=== PATIENT | female | born 1935 | race Caucasian/White ===

== ENCOUNTER 2017-05-25 19:47 | Inpatient (IN) | payer MEDICARE, BC ==
[2017-05-25] MEDS ORDERED: LORazepam INJ* 2 MG/ML 1 ML VIAL IV ONE (20:16)
[2017-05-25 20:35] LABS: ABS Basophils 0.1 10^3/ul (0-0.2); ABS Eosinophils 0 10^3/ul (0-0.6); ABS Monocytes 0.6 10^3/ul (0-0.8); ABS Neutrophils 7.7 10^3/ul (1.5-7.7); ABS Nucleated RBC 0 10^3/ul; Eosinophil % 0.2 % (0-6); Hematocrit 39 % (35-47); Hemoglobin 13.4 g/dl (12.0-16.0); Lymphocyte % 10.5 % (25-47); Mean Corpuscular HGB Conc 34 g/dl (31-36); Mean Corpuscular Hemoglobin 32 pg (27-31); Mean Corpuscular Volume 93 fL (80-97); Mean Platelet Volume 7 um3 (7.4-10.4); Nucleated Red Blood Cells % 0; Platelet Count 276 10^3/ul (150-450); Red Cell Distribution Width 13 % (10.5-15); White Blood Count 9.4 10^3/ul (3.5-10.8)
[2017-05-25 20:49] LABS: EGFR Non-African American 106.3 (>60)
[2017-05-25] MEDS: NS 0.9% 1000 ML* 1,000 ML IV SCH (21:10)
--- NOTE | 2017-05-25 21:10 | RAD ---
Indication: Low back and left thigh pain. CT of the abdomen and pelvis was performed without oral or IV contrast administration. Coronal and sagittal reconstructed images were obtained. Lung bases demonstrate no pleural fluid, nodules or masses. Heart is of normal size without evidence of pericardial effusion. Liver is normal in size. No focal lesions or intrahepatic duct dilatation is noted. Patient status post cholecystectomy. Common duct is prominent. Pancreas demonstrates no mass or pancreatic ductal dilatation. Spleen is normal in size. No adrenal lesions are noted. The kidneys demonstrate no hydronephrosis with cortical cyst in the lower pole of the right kidney measuring up to 2.9 cm. No dilated loops of bowel are noted. No hydronephrosis is noted. Atherosclerotic aorta without evidence of aneurysmal dilatation is noted. Common iliac arteries are unremarkable. CT of the pelvis demonstrates uterus and ovaries to be unremarkable. Urinary bladder is unremarkable. No hernias are noted. The visualized bony structures are grossly unremarkable. Degenerative disc disease at multiple levels is noted. There is a small anterior abdominal wall hernia containing omentum. IMPRESSION: No abnormal masses or fluid collections are noted. Patient is status post cholecystectomy. There is a small ventral hernia containing omentum.
--- NOTE | 2017-05-25 21:33 | RAD ---
Indication: Left leg pain. Duplex Doppler sonography of the deep venous system of the left lower extremity deep venous system was performed. Bilaterally the common femoral veins appear patent and compressible. Left proximal greater saphenous vein, proximal deep femoral vein, femoral vein, popliteal vein, posterior tibial veins and peroneal veins appear patent and compressible. IMPRESSION: NO EVIDENCE OF DEEP VENOUS THROMBOSIS IS IDENTIFIED.
--- NOTE | 2017-05-25 21:35 | RAD ---
Indication: Back pain. CT of the lumbar spine was obtained in the axial plane. Sagittal and coronal reconstructed images were obtained. The vertebral bodies appear normal in height. Diffuse osteopenia is noted. At L5-S1 there is degenerative disc disease. Osteopenia is noted. Facet arthropathy is noted. At L4-L5 there is broad-based protrusion. No central foraminal stenosis is identified. Moderate facet hypertrophy is noted. At L3-L4 broad-based protrusion flattens the thecal sac. Mild facet arthropathy is noted. No central or foraminal stenosis is noted. At L2-L3 there is degenerative disc disease with broad-based protrusion. There is left posterior lateral disc protrusion which may narrow the left foramen. At L1-L2 no focal protrusion is identified. IMPRESSION: No evidence of fracture is noted. Degenerative disc disease is present at multiple levels. At L2-L3 broad-based protrusion asymmetric towards the left may narrow the left foramen. Vacuum disc phenomenon is noted. At L4-L5 and L5-S1 degenerative disc disease is noted.
--- NOTE | 2017-05-25 21:37 | RAD ---
Indication: Left thigh pain. CT of the left femur was performed in the axial plane. Sagittal and coronal reconstructed images were obtained. Degenerative changes of the left hip is noted. Osteophyte formation and joint space narrowing is noted. No fracture of the femur is noted. Degenerative changes of the patellofemoral joint is noted. No soft tissue masses are noted. IMPRESSION: Degenerative changes of the left hip without evidence of fracture.
--- NOTE | 2017-05-25 22:30 | ED ---
Judah Meraz Thomas, scribed for Bao Eid MD on 05/25/17 at 2011 . Lower Extremity - HPI Summary HPI Summary: The patient is an 81 year old female presenting to the emergency department complaining of pain in her left thigh. It began about a month ago where it started in her lower back, and it now radiates down her leg. There is some numbness associated with the pain, and it is aggravated by movement. There is no pain in her knee, calf, butt, back, abdomen or chest. She reports incontinence for the past few years. - History of Current Complaint Chief Complaint: EDExtremityLower Stated Complaint: LT THIGH PAIN Time Seen by Provider: 05/25/17 19:53 Hx Obtained From: Patient Onset of Pain: Days - about 30 days ago. Onset/Duration: Still Present Severity Initially: Severe Severity Currently: Severe Pain Intensity: 10 Pain Scale Used: 0-10 Numeric Timing: Constant Location: Radiates To - left leg Associated Signs And Symptoms: Negative: Abdominal Pain, Knee Pain, Other - Chest pain Aggravating Factor(s): Movement Alleviating Factor(s): Nothing - Allergies/Home Medications Allergies/Adverse Reactions: Allergies Allergy/AdvReac Type Severity Reaction Status Date / Time Penicillins Allergy Unknown Verified 05/25/17 19:58 Reaction Details PMH/Surg Hx/FS Hx/Imm Hx Endocrine/Hematology History: Reports: Hx Diabetes Cardiovascular History: Reports: Hx Hypertension Infectious Disease History: No Infectious Disease History: Denies: Traveled Outside the [place] in Last 30 Days - Family History Known Family History: Positive: Diabetes - Social History Alcohol Use: None Substance Use Type: Reports: None Smoking Status (MU): Former Smoker Review of Systems Positive: incontinence Musculoskeletal: Other - Left lower extremity pain, Lower back pain Negative: Other - Knee, calf, butt, back, abdomen, chest pain Positive: Numbness All Other Systems Reviewed And Are Negative: Yes Physical Exam - Summary Physical Exam Summary: General: well-appearing, no pain distress Skin: warm, color reflects adequate perfusion, dry Head: normal Eyes: EOMI, CATY ENT: normal Neck: supple, nontender Respiratory: CTA, breath sounds present Cardiovascular: RRR Abdomen: soft, nontender Bowel: present Musculoskeletal: Her lateral thigh is tender to palpation. There is tenderness through the gluteals. Strength/ROM intact. Neurological: normal, sensory/motor intact, A&O x3 Psychological: affect/mood appropriate Triage Information Reviewed: Yes Vital Signs On Initial Exam: Initial Vitals Temp Pulse Resp BP Pulse Ox 98.4 F 91 20 182/81 95 05/25/17 19:56 05/25/17 19:56 05/25/17 19:56 05/25/17 19:56 05/25/17 19:56 Vital Signs Reviewed: Yes Diagnostics - Vital Signs Vital Signs Temp Pulse Resp BP Pulse Ox 05/25/17 19:56 98.4 F 91 20 182/81 95 - Laboratory Lab Results: Lab Results 05/25/17 05/25/17 05/25/17 Range/Units 20:20 20:20 20:20 WBC (3.5-10.8) 10^3/ul RBC (4.0-5.4) 10^6/ul Hgb (12.0-16.0) g/dl Hct (35-47) % MCV (80-97) fL MCH (27-31) pg MCHC (31-36) g/dl RDW (10.5-15) % Plt Count (150-450) 10^3/ul MPV (7.4-10.4) um3 Neut % (Auto) (38-83) % Lymph % (Auto) (25-47) % [place] % (Auto) (1-9) % Eos % (Auto) (0-6) % Baso % (Auto) (0-2) % Absolute Neuts (auto) (1.5-7.7) 10^3/ul Absolute Lymphs (auto) (1.0-4.8) 10^3/ul Absolute Monos (auto) (0-0.8) 10^3/ul Absolute Eos (auto) (0-0.6) 10^3/ul Absolute Basos (auto) (0-0.2) 10^3/ul Absolute Nucleated RBC 10^3/ul Nucleated RBC % INR (Anticoag Therapy) 0.90 (0.77-1.02) APTT 28.6 (26.0-36.3) seconds D-Dimer, Quantitative < 200 (Less Than 230) ng/mL Sodium (133-145) mmol/L Potassium (3.5-5.0) mmol/L Chloride (101-111) mmol/L Carbon Dioxide (22-32) mmol/L Anion Gap (2-11) mmol/L BUN (6-24) mg/dL Creatinine (0.51-0.95) mg/dL Est GFR ( Amer) (>60) Est GFR (Non-Af Amer) (>60) BUN/Creatinine Ratio (8-20) Glucose (70-100) mg/dL Lactic Acid 2.4 H* (0.5-2.0) mmol/L Calcium (8.6-10.3) mg/dL Total Bilirubin (0.2-1.0) mg/dL AST (13-39) U/L ALT (7-52) U/L Alkaline Phosphatase (34-104) U/L C-Reactive Protein (< 5.00) mg/L B-Natriuretic Peptide 138 H ( - 100) pg/mL Total Protein (6.4-8.9) g/dL Albumin (3.2-5.2) g/dL Globulin (2-4) g/dL Albumin/Globulin Ratio (1-3) 05/25/17 05/25/17 Range/Units 20:20 20:20 WBC 9.4 (3.5-10.8) 10^3/ul RBC 4.20 (4.0-5.4) 10^6/ul Hgb 13.4 (12.0-16.0) g/dl Hct 39 (35-47) % MCV 93 (80-97) fL MCH 32 H (27-31) pg MCHC 34 (31-36) g/dl RDW 13 (10.5-15) % Plt Count 276 (150-450) 10^3/ul MPV 7 L (7.4-10.4) um3 Neut % (Auto) 81.7 (38-83) % Lymph % (Auto) 10.5 L (25-47) % [place] % (Auto) 6.7 (1-9) % Eos % (Auto) 0.2 (0-6) % Baso % (Auto) 0.9 (0-2) % Absolute Neuts (auto) 7.7 (1.5-7.7) 10^3/ul Absolute Lymphs (auto) 1.0 (1.0-4.8) 10^3/ul Absolute Monos (auto) 0.6 (0-0.8) 10^3/ul Absolute Eos (auto) 0 (0-0.6) 10^3/ul Absolute Basos (auto) 0.1 (0-0.2) 10^3/ul Absolute Nucleated RBC 0 10^3/ul Nucleated RBC % 0 INR (Anticoag Therapy) (0.77-1.02) APTT (26.0-36.3) seconds D-Dimer, Quantitative (Less Than 230) ng/mL Sodium 132 L (133-145) mmol/L Potassium 3.6 (3.5-5.0) mmol/L Chloride 98 L (101-111) mmol/L Carbon Dioxide 25 (22-32) mmol/L Anion Gap 9 (2-11) mmol/L BUN 13 (6-24) mg/dL Creatinine 0.55 (0.51-0.95) mg/dL Est GFR ( Amer) 136.8 (>60) Est GFR (Non-Af Amer) 106.3 (>60) BUN/Creatinine Ratio 23.6 H (8-20) Glucose 180 H (70-100) mg/dL Lactic Acid (0.5-2.0) mmol/L Calcium 9.7 (8.6-10.3) mg/dL Total Bilirubin 0.50 (0.2-1.0) mg/dL AST 21 (13-39) U/L ALT 21 (7-52) U/L Alkaline Phosphatase 70 (34-104) U/L C-Reactive Protein 4.05 (< 5.00) mg/L B-Natriuretic Peptide ( - 100) pg/mL Total Protein 6.9 (6.4-8.9) g/dL Albumin 4.0 (3.2-5.2) g/dL Globulin 2.9 (2-4) g/dL Albumin/Globulin Ratio 1.4 (1-3) Result Diagrams: 05/25/17 20:20 05/25/17 20:20 Lab Statement: Any lab studies that have been ordered have been reviewed, and results considered in the medical decision making process. - CT CT Abd/Pel CT Interpretation: No Acute Changes - No abnormal masses or fluid collections are noted. Patient is status post cholecystectomy. There is a small ventral hernia containing omentum. Dr. Eid has reviewed this report. CT Interpretation Completed By: Radiologist CT L-Spine CT Interpretation: No Acute Changes - No evidence of fracture is noted. Degenerative disc disease is present at multiple levels. At L2-L3 broad-based protrusion asymmetric towards the left may narrow the left foramen. Vacuum disc phenomenon is noted. At L4-L5 and L5-S1 degenerative disc disease is noted. Dr. Eid has reviewed this report. CT Interpretation Completed By: Radiologist CT Lower Extremities CT Interpretation: No Acute Changes - Degenerative changes of the left hip without evidence of fracture. Dr. Eid has reviewed this report. CT Interpretation Completed By: Radiologist - Additional Comments Diagnostic Additional Comments: ULTRASOUND Right lower extremity. Interpreted by radiologist. Impression: There is no evidence of DVT identified. Dr. Eid has reviewed this report. Lower Extremity Course/Dx - Course Course Of Treatment: Medications reviewed. Allergies noted. BP noted and advised follow up with PMD. DISPOSITION PENDING AT SHIFT CHANGE - Diagnoses Provider Diagnoses: Uncontrolled hypertension, Sciatica, left side Discharge - Discharge Plan Condition: Stable Disposition: HOME Patient Education Materials: Sciatica (ED) Referrals: Irvin Caicedo MD [Medical Doctor] - Additional Instructions: FOLLOW UP WITH YOUR DOCTOR. RETURN TO THE EMERGENCY DEPARTMENT FOR ANY WORSENING OF YOUR CONDITION OR QUESTIONS OR CONCERNS. The documentation as recorded by the Judah hollins Thomas accurately reflects the service I personally performed and the decisions made by , Bao Eid MD.
--- NOTE | 2017-05-25 23:37 | HP ---
H&P (Free Text) History and Physical: PCP: Aye Wolff Date/Time: 05/25/2017 2330 CC: LLE pain HPI: Mrs Salazar is an 81YO female HX DM2, HTN, HLD, CHF, & COPD on 2L NC oxygen nightly who presents reporting feeling a "twinge" in her L low back ~1 month ago which has waxed and waned, gradually worsening until tonight after going to bed when it became much more severe and radiated down the L leg and into the anterior thigh with some subjective numbness in the anterior thigh. She has some nausea without emesis with the worst pain, but denies injury/fall, F/C, sweats, diarrhea, open wounds/rash, chest pain, SOB, palpitations, or other issues. Weightbearing increases the pain. She notes no alleviating factors. PMedHx DM2 HTN HLD COPD on 2L NC oxygen nightly CHF Ambulatory Orders Albuterol HFA INHALER* 05/25/17 Amlodipine Besylate-Valsartan [Amlodipine Besylate/Valsa 5-320 mg-] 1 tab PO DAILY 05/25/17 Aspirin [Aspirin 81 MG TAB] 81 mg PO 05/25/17 Atorvastatin* [Lipitor*] 40 mg PO 2100 05/25/17 Bisoprolol Fumarate [Bisoprolol Fumarate-] 10 mg PO BEDTIME 05/25/17 Cholecalciferol [Vitamin D] 2,000 unit PO 05/25/17 Furosemide TAB* [Lasix TAB*] 20 mg PO DAILY 05/25/17 Glipizide [Glipizide ER] 5 mg PO BID 05/25/17 Metformin HCl [Glucophage] 1,000 mg PO BID 05/25/17 Tiotropium Capulin-Olodaterol [Stiolto Respimat 2.5-2.5 Mcg/Act] 1 aer IN traMADol TAB* [Ultram*] 50 mg PO Q8HR 05/25/17 Allergies Penicillins Allergy (Verified 05/25/17 19:58) Unknown Reaction Details PSurgHx OU cataract extraction cholecystectomy appendectomy SocHx: quit smoking >20years ago, no alcohol or recreational drugs; lives alone ; DNR/I code status FamHx: Mother passed at 50 2nd complications of DM. Father passed in his 80s of unknown cause. ROS: as above, otherwise reviewed and all were negative vitals: Vital Signs Temp 36.3 C 05/26/17 02:04 Pulse 90 05/26/17 02:04 Resp 18 05/26/17 05:14 BP 143/87 05/26/17 02:04 Pulse Ox 92 05/26/17 02:04 Intake & Output 05/25/17 05/25/17 05/26/17 11:59 23:59 11:59 Intake Total 1000 Balance 1000 Weight 99.79 kg 105.143 kg Intake: IV Fluids 1000 Constitutional: NAD, normally developed, obese elderly white female HEENM: atraumatic; sclera/conjunctiva: anicteric/clear; hearing: clinically intact; oropharynx: clear, mucosa moist Neck: soft tissue: non-tender; thyroid: normal Pulmonary: clear to auscultation bilaterally, good aeration, no accessory muscle use CV: RR/RR, normal S1S2, no carotid bruit, no jugular venous distention, 2+ B DP/ PT, trace BLE edema Abdominal: soft, non-distended, non-tender, no rebound/guarding/rigidity, normoactive bowel sounds, no hepatosplenomegaly or masses, no costovertebral angle tenderness Musculoskeletal: general: grossly intact, negative calf tenderness, negative Gregory's, no palpable cords, no greater trochanter tenderness, full painless passive ROM hip/knee Integumental: normal appearance and texture of BLE Psychiatric orientation: AA&O to PPS affect: calm mood: cooperative eye contact: good content: reliable responses: timely insight: good Testing: Lab Results 05/25/17 05/25/17 05/25/17 Range/Units 20:20 20:20 20:20 WBC (3.5-10.8) 10^3/ul RBC (4.0-5.4) 10^6/ul Hgb (12.0-16.0) g/dl Hct (35-47) % MCV (80-97) fL MCH (27-31) pg MCHC (31-36) g/dl RDW (10.5-15) % Plt Count (150-450) 10^3/ul MPV (7.4-10.4) um3 Neut % (Auto) (38-83) % Lymph % (Auto) (25-47) % [place] % (Auto) (1-9) % Eos % (Auto) (0-6) % Baso % (Auto) (0-2) % Absolute Neuts (auto) (1.5-7.7) 10^3/ul Absolute Lymphs (auto) (1.0-4.8) 10^3/ul Absolute Monos (auto) (0-0.8) 10^3/ul Absolute Eos (auto) (0-0.6) 10^3/ul Absolute Basos (auto) (0-0.2) 10^3/ul Absolute Nucleated RBC 10^3/ul Nucleated RBC % INR (Anticoag Therapy) 0.90 (0.77-1.02) APTT 28.6 (26.0-36.3) seconds D-Dimer, Quantitative < 200 (Less Than 230) ng/mL Sodium (133-145) mmol/L Potassium (3.5-5.0) mmol/L Chloride (101-111) mmol/L Carbon Dioxide (22-32) mmol/L Anion Gap (2-11) mmol/L BUN (6-24) mg/dL Creatinine (0.51-0.95) mg/dL Est GFR ( Amer) (>60) Est GFR (Non-Af Amer) (>60) BUN/Creatinine Ratio (8-20) Glucose (70-100) mg/dL POC Glucose (mg/dL) (70-100) mg/dL Lactic Acid 2.4 H* (0.5-2.0) mmol/L Calcium (8.6-10.3) mg/dL Total Bilirubin (0.2-1.0) mg/dL AST (13-39) U/L ALT (7-52) U/L Alkaline Phosphatase (34-104) U/L C-Reactive Protein (< 5.00) mg/L B-Natriuretic Peptide 138 H ( - 100) pg/mL Total Protein (6.4-8.9) g/dL Albumin (3.2-5.2) g/dL Globulin (2-4) g/dL Albumin/Globulin Ratio (1-3) 05/25/17 05/25/17 05/26/17 Range/Units 20:20 20:20 01:37 WBC 9.4 (3.5-10.8) 10^3/ul RBC 4.20 (4.0-5.4) 10^6/ul Hgb 13.4 (12.0-16.0) g/dl Hct 39 (35-47) % MCV 93 (80-97) fL MCH 32 H (27-31) pg MCHC 34 (31-36) g/dl RDW 13 (10.5-15) % Plt Count 276 (150-450) 10^3/ul MPV 7 L (7.4-10.4) um3 Neut % (Auto) 81.7 (38-83) % Lymph % (Auto) 10.5 L (25-47) % [place] % (Auto) 6.7 (1-9) % Eos % (Auto) 0.2 (0-6) % Baso % (Auto) 0.9 (0-2) % Absolute Neuts (auto) 7.7 (1.5-7.7) 10^3/ul Absolute Lymphs (auto) 1.0 (1.0-4.8) 10^3/ul Absolute Monos (auto) 0.6 (0-0.8) 10^3/ul Absolute Eos (auto) 0 (0-0.6) 10^3/ul Absolute Basos (auto) 0.1 (0-0.2) 10^3/ul Absolute Nucleated RBC 0 10^3/ul Nucleated RBC % 0 INR (Anticoag Therapy) 0.91 (0.77-1.02) APTT 29.1 (26.0-36.3) seconds D-Dimer, Quantitative (Less Than 230) ng/mL Sodium 132 L (133-145) mmol/L Potassium 3.6 (3.5-5.0) mmol/L Chloride 98 L (101-111) mmol/L Carbon Dioxide 25 (22-32) mmol/L Anion Gap 9 (2-11) mmol/L BUN 13 (6-24) mg/dL Creatinine 0.55 (0.51-0.95) mg/dL Est GFR ( Amer) 136.8 (>60) Est GFR (Non-Af Amer) 106.3 (>60) BUN/Creatinine Ratio 23.6 H (8-20) Glucose 180 H (70-100) mg/dL POC Glucose (mg/dL) (70-100) mg/dL Lactic Acid (0.5-2.0) mmol/L Calcium 9.7 (8.6-10.3) mg/dL Total Bilirubin 0.50 (0.2-1.0) mg/dL AST 21 (13-39) U/L ALT 21 (7-52) U/L Alkaline Phosphatase 70 (34-104) U/L C-Reactive Protein 4.05 (< 5.00) mg/L B-Natriuretic Peptide ( - 100) pg/mL Total Protein 6.9 (6.4-8.9) g/dL Albumin 4.0 (3.2-5.2) g/dL Globulin 2.9 (2-4) g/dL Albumin/Globulin Ratio 1.4 (1-3) 05/26/17 05/26/17 05/26/17 Range/Units 01:37 01:37 01:37 WBC 9.3 (3.5-10.8) 10^3/ul RBC 4.16 (4.0-5.4) 10^6/ul Hgb 13.1 (12.0-16.0) g/dl Hct 39 (35-47) % MCV 95 (80-97) fL MCH 32 H (27-31) pg MCHC 33 (31-36) g/dl RDW 13 (10.5-15) % Plt Count 261 (150-450) 10^3/ul MPV 7 L (7.4-10.4) um3 Neut % (Auto) 82.9 (38-83) % Lymph % (Auto) 11.0 L (25-47) % [place] % (Auto) 5.3 (1-9) % Eos % (Auto) 0.1 (0-6) % Baso % (Auto) 0.7 (0-2) % Absolute Neuts (auto) 7.7 (1.5-7.7) 10^3/ul Absolute Lymphs (auto) 1.0 (1.0-4.8) 10^3/ul Absolute Monos (auto) 0.5 (0-0.8) 10^3/ul Absolute Eos (auto) 0 (0-0.6) 10^3/ul Absolute Basos (auto) 0.1 (0-0.2) 10^3/ul Absolute Nucleated RBC 0 10^3/ul Nucleated RBC % 0 INR (Anticoag Therapy) (0.77-1.02) APTT (26.0-36.3) seconds D-Dimer, Quantitative (Less Than 230) ng/mL Sodium (133-145) mmol/L Potassium (3.5-5.0) mmol/L Chloride (101-111) mmol/L Carbon Dioxide (22-32) mmol/L Anion Gap (2-11) mmol/L BUN 13 (6-24) mg/dL Creatinine 0.57 (0.51-0.95) mg/dL Est GFR ( Amer) 131.2 (>60) Est GFR (Non-Af Amer) 102.1 (>60) BUN/Creatinine Ratio (8-20) Glucose (70-100) mg/dL POC Glucose (mg/dL) (70-100) mg/dL Lactic Acid 0.9 (0.5-2.0) mmol/L Calcium (8.6-10.3) mg/dL Total Bilirubin (0.2-1.0) mg/dL AST (13-39) U/L ALT (7-52) U/L Alkaline Phosphatase (34-104) U/L C-Reactive Protein (< 5.00) mg/L B-Natriuretic Peptide ( - 100) pg/mL Total Protein (6.4-8.9) g/dL Albumin (3.2-5.2) g/dL Globulin (2-4) g/dL Albumin/Globulin Ratio (1-3) 05/26/17 Range/Units 02:47 WBC (3.5-10.8) 10^3/ul RBC (4.0-5.4) 10^6/ul Hgb (12.0-16.0) g/dl Hct (35-47) % MCV (80-97) fL MCH (27-31) pg MCHC (31-36) g/dl RDW (10.5-15) % Plt Count (150-450) 10^3/ul MPV (7.4-10.4) um3 Neut % (Auto) (38-83) % Lymph % (Auto) (25-47) % [place] % (Auto) (1-9) % Eos % (Auto) (0-6) % Baso % (Auto) (0-2) % Absolute Neuts (auto) (1.5-7.7) 10^3/ul Absolute Lymphs (auto) (1.0-4.8) 10^3/ul Absolute Monos (auto) (0-0.8) 10^3/ul Absolute Eos (auto) (0-0.6) 10^3/ul Absolute Basos (auto) (0-0.2) 10^3/ul Absolute Nucleated RBC 10^3/ul Nucleated RBC % INR (Anticoag Therapy) (0.77-1.02) APTT (26.0-36.3) seconds D-Dimer, Quantitative (Less Than 230) ng/mL Sodium (133-145) mmol/L Potassium (3.5-5.0) mmol/L Chloride (101-111) mmol/L Carbon Dioxide (22-32) mmol/L Anion Gap (2-11) mmol/L BUN (6-24) mg/dL Creatinine (0.51-0.95) mg/dL Est GFR ( Amer) (>60) Est GFR (Non-Af Amer) (>60) BUN/Creatinine Ratio (8-20) Glucose (70-100) mg/dL POC Glucose (mg/dL) 211 H (70-100) mg/dL Lactic Acid (0.5-2.0) mmol/L Calcium (8.6-10.3) mg/dL Total Bilirubin (0.2-1.0) mg/dL AST (13-39) U/L ALT (7-52) U/L Alkaline Phosphatase (34-104) U/L C-Reactive Protein (< 5.00) mg/L B-Natriuretic Peptide ( - 100) pg/mL Total Protein (6.4-8.9) g/dL Albumin (3.2-5.2) g/dL Globulin (2-4) g/dL Albumin/Globulin Ratio (1-3) US venous LLE: IMPRESSION: NO EVIDENCE OF DEEP VENOUS THROMBOSIS IS IDENTIFIED. CT abd/pel WO, personally reviewed: IMPRESSION: No abnormal masses or fluid collections are noted. Patient is status post cholecystectomy. There is a small ventral hernia containing omentum. CT L-spine WO, personally reviewed: IMPRESSION: No evidence of fracture is noted. Degenerative disc disease is present at multiple levels. At L2-L3 broad- based protrusion asymmetric towards the left may narrow the left foramen. Vacuum disc phenomenon is noted. At L4-L5 and L5-S1 degenerative disc disease is noted. CT LLE WO, personally reviewed: IMPRESSION: Degenerative changes of the left hip without evidence of fracture. Impression: 81F HX DM2, HTN, HLD, COPD on 2L NC oxygen nightly, & CHF presents with 1 month progressive L low back pain now radiating intractably to the LLE, likely sciatica DIAGNOSIS & PLAN Primary intractable L LBP radiating to LLE, likely sciatic : pain control : PT evaluation : supportive care Secondary DM2 : check A1c : consistent carb diet : ACHS glucometry : continue metformin & glipizide : correctional insulin HTN : continue bisoprolol & amlodipine HLD : continue atorvastatin COPD : continue 2L NC oxygen nightly : albuterol nebs PRN : continue tiotropium CHF : continue furosemide : heart healthy diet : daily weights : strict I&Os Admission Rational: observation for pain control DVTp: heparin SQ Code Status: DNR/I HCP: son, Miles
[2017-05-26] MEDS ORDERED: traMADol TAB* 50 MG PO PRN (01:06)
[2017-05-26] MEDS ORDERED: CMCS: Melatonin (NF) 3 MG TAB PO PRN (01:06)
[2017-05-26] MEDS ORDERED: Albuterol 2.5 MG/3 ML NEB.SOL* (0.083%) INH PRN (01:06)
[2017-05-26] MEDS ORDERED: Ondansetron INJ* 2 MG/ML VIAL IV PRN (01:06)
[2017-05-26 01:46] LABS: ABS Basophils 0.1 10^3/ul (0-0.2); ABS Eosinophils 0 10^3/ul (0-0.6); ABS Monocytes 0.5 10^3/ul (0-0.8); ABS Neutrophils 7.7 10^3/ul (1.5-7.7); ABS Nucleated RBC 0 10^3/ul; Eosinophil % 0.1 % (0-6); Hematocrit 39 % (35-47); Hemoglobin 13.1 g/dl (12.0-16.0); Mean Corpuscular HGB Conc 33 g/dl (31-36); Mean Corpuscular Hemoglobin 32 pg (27-31); Mean Corpuscular Volume 95 fL (80-97); Mean Platelet Volume 7 um3 (7.4-10.4); Nucleated Red Blood Cells % 0; Platelet Count 261 10^3/ul (150-450); Red Blood Count 4.16 10^6/ul (4.0-5.4); Red Cell Distribution Width 13 % (10.5-15); White Blood Count 9.3 10^3/ul (3.5-10.8)
[2017-05-26 02:00] LABS: EGFR Non-African American 102.1 (>60)
[2017-05-26 02:06] LABS: INR 0.91 (0.77-1.02)
[2017-05-26] MEDS: oxyCODONE TAB* 5 MG TAB PO PRN ×2 (02:43→09:16)
[2017-05-26] MEDS: NS 0.9% 1000 ML* 1,000 ML IV SCH ×3 (02:47→17:22)
[2017-05-26] MEDS: Omeprazole CAP* 20 MG PO SCH (05:39)
[2017-05-26] MEDS: Insulin LISPRO* 1 UNITS UNIT SUBCUT SCH ×4 (07:41→20:02)
[2017-05-26] MEDS ORDERED: glipiZIDE TAB.XL* 2.5 MG PO SCH (09:00)
[2017-05-26] MEDS: Furosemide TAB* 20 MG PO SCH (09:17)
[2017-05-26] MEDS: Aspirin EC Low Dose* 81 MG TAB.EC PO SCH (09:17)
[2017-05-26] MEDS: Valsartan TAB* 160 MG PO SCH (09:17)
[2017-05-26] MEDS: Acetaminophen TAB* 325 MG PO PRN ×2 (09:17→17:17)
[2017-05-26] MEDS: Docusate CAP* 100 MG PO SCH ×2 (09:17→19:59)
[2017-05-26] MEDS: amLODIPine TAB* 5 MG PO SCH (09:17)
[2017-05-26] MEDS: metFORMIN* 1,000 MG TAB PO SCH ×2 (09:17→17:17)
[2017-05-26] MEDS: MDI INH SCH (11:16)
[2017-05-26] MEDS: TIOTROPIUM RESPIMT 2.5 MCG INH SCH (11:16)
[2017-05-26] MEDS: traMADol TAB* 50 MG PO SCH ×2 (12:50→20:00)
--- NOTE | 2017-05-26 13:09 | PN ---
Subjective Date of Service: 05/26/17 Interval History: Ms. Salazar reports persistent back pain with pain in her left thigh, unchanged since admission. She denies other complaint including chest pain, SOB, nausea, or abdominal pain. Objective Active Medications: Acetaminophen (Tylenol Tab*) 650 mg PO Q6H PRN Albuterol (Ventolin 2.5 Mg/3 Ml Neb.Zeenat*) 2.5 mg INH Q2H PRN Amlodipine Besylate (Norvasc Tab*) 5 mg PO DAILY [facility] Aspirin (Aspirin Ec Low Dose*) 81 mg PO DAILY [facility] Atorvastatin Calcium (Lipitor*) 40 mg PO 2100 [facility] Bisoprolol Fumarate (Zebeta Tab*) 10 mg PO BEDTIME [facility] Docusate Sodium (Colace Cap*) 200 mg PO BID [facility] Furosemide (Lasix Tab*) 20 mg PO DAILY [facility] Glipizide (Glucotrol Xl*) 5 mg PO BID [facility] Heparin Sodium (Porcine) (Heparin Vial(*)) 5,000 units SUBCUT Q8HR [facility] Sodium Chloride (Ns 0.9% 1000 Ml*) 1,000 mls @ 150 mls/hr IV PER RATE [facility] Insulin Human Lispro (Humalog*) 0 units SUBCUT ACHS [facility] Melatonin (Melatonin (Nf)) 3 mg PO BEDTIME PRN; Protocol Metformin HCl (Glucophage*) 1,000 mg PO BID WITH MEALS [facility] Omeprazole (Prilosec Cap*) 20 mg PO DAILY@0600 [facility] Ondansetron HCl (Zofran Inj*) 4 mg IV Q6H PRN Oxycodone HCl (Roxycodone Tab*) 2.5 mg PO Q4H PRN Tiotropium [place] (Spiriva Respimat 2.5 Mcg(Nf)) 1 puff INH DAILY [facility] Tramadol HCl (Ultram*) 50 mg PO Q8HR [facility] Valsartan (Diovan Tab*) 320 mg PO DAILY [facility] Vital Signs: Temp Pulse Resp BP Pulse Ox 97.2 F 75 16 154/62 96 05/26/17 11:15 05/26/17 11:15 05/26/17 12:50 05/26/17 11:15 05/26/17 11:15 Oxygen Devices in Use Now: Nasal Cannula Appearance: Female lying in bed in NAD Eyes: No Scleral Icterus Ears/Nose/Mouth/Throat: Mucous Membranes Moist Neck: Trachea Midline Respiratory: Symmetrical Chest Expansion and Respiratory Effort, Clear to Auscultation Cardiovascular: NL Sounds; No Murmurs; No JVD, No Edema Abdominal: NL Sounds; No Tenderness; No Distention Lymphatic: No Cervical Adenopathy Extremities: No Edema Skin: No Rash or Ulcers Neurological: Alert and Oriented x 3, NL Muscle Strength and Tone Nutrition: Taking PO's Result Diagrams: 05/26/17 01:37 05/26/17 01:37 Additional Lab and Data: . Assess/Plan/Problems-Billing Assessment: Ms. Salazar is an 81 yo male with a PMH of DM, HTN, COPD and CHF and who was admitted on 05/25/17 with back pain and left sided sciatica. - Patient Problems (1) Back pain Comment: - Minimal improvement since arrival. - Increased oxycodone and have added oxycontin BID at low dose. - Lumbar spine CT shows degenerative disk disease. (2) CHF (congestive heart failure) Comment: - No evidence of exacerbation. - Continue furosemide. (3) COPD (chronic obstructive pulmonary disease) Comment: - No evidence of acute exacerbation. - Continue nebs prn. (4) Diabetes Comment: - Glipizide, metformin. (5) Hypertension Status: Acute Comment: - SBP 140-160s. - Continue valsartan, amlodipine, furosemide. (6) Hyperlipidemia Comment: - Continue atorvastatin. (7) DVT prophylaxis Comment: - Heparin SQ. (8) Full code status Current Visit: Yes Comment: Status and Disposition: OBV.
[2017-05-26] MEDS ORDERED: oxyCODONE TAB* 5 MG TAB PO PRN (14:32)
[2017-05-26] MEDS: glipiZIDE TAB.XL* 2.5 MG PO SCH (17:28)
[2017-05-26] MEDS: Atorvastatin* 40 MG TAB PO SCH (19:59)
[2017-05-26] MEDS: Bisoprolol TAB* 5 MG PO SCH (19:59)
[2017-05-26] MEDS: oxyCODONE SR TAB(*) 10 MG TAB.SR PO SCH (20:00)
[2017-05-27] MEDS: oxyCODONE TAB* 5 MG TAB PO PRN ×2 (04:19→12:56)
[2017-05-27] MEDS: Heparin VIAL(*) 5000 UNITS/ML VIAL (FIVE THOUSAND) SUBCUT SCH ×3 (04:21→20:23)
[2017-05-27] MEDS: Omeprazole CAP* 20 MG PO SCH (04:21)
[2017-05-27] MEDS: traMADol TAB* 50 MG PO SCH ×3 (05:29→22:27)
[2017-05-27] MEDS ORDERED: INSULIN DEGLUDEC 20 UNIT SC SCH (06:30)
[2017-05-27] MEDS: TIOTROPIUM RESPIMT 2.5 MCG INH SCH (08:39)
[2017-05-27] MEDS: MDI INH SCH (08:39)
[2017-05-27] MEDS: Valsartan TAB* 160 MG PO SCH (08:55)
[2017-05-27] MEDS: glipiZIDE TAB.XL* 2.5 MG PO SCH ×2 (08:56→17:13)
[2017-05-27] MEDS: oxyCODONE SR TAB(*) 10 MG TAB.SR PO SCH ×2 (08:56→20:22)
[2017-05-27] MEDS: Docusate CAP* 100 MG PO SCH ×2 (08:56→20:23)
[2017-05-27] MEDS: Aspirin EC Low Dose* 81 MG TAB.EC PO SCH (08:56)
[2017-05-27] MEDS: Insulin LISPRO* 1 UNITS UNIT SUBCUT SCH ×4 (08:56→22:27)
[2017-05-27] MEDS: Furosemide TAB* 20 MG PO SCH (08:56)
[2017-05-27] MEDS: metFORMIN* 1,000 MG TAB PO SCH ×2 (08:56→17:12)
[2017-05-27] MEDS: amLODIPine TAB* 5 MG PO SCH (08:56)
[2017-05-27] MEDS: NON FORMULARY MED2 SUBCUT SCH (09:26)
[2017-05-27] MEDS: predniSONE TAB* 20 MG PO SCH (10:34)
[2017-05-27] MEDS: Insulin GLARGINE(*) 1 UNITS UNIT SUBCUT SCH (10:34)
--- NOTE | 2017-05-27 16:13 | PN ---
Subjective Date of Service: 05/27/17 Interval History: Afebrile. Pain with movement. Improved after prednisone and oxycodone and was able to ambulate to bathroom with some discomfort but much better Objective Active Medications: Acetaminophen (Tylenol Tab*) 650 mg PO Q6H PRN PRN Reason: FEVER/PAIN Last Admin: 05/26/17 17:17 Dose: 650 mg Albuterol (Ventolin 2.5 Mg/3 Ml Neb.Zeenat*) 2.5 mg INH Q2H PRN PRN Reason: SOB/WHEEZING Amlodipine Besylate (Norvasc Tab*) 5 mg PO DAILY [facility] Last Admin: 05/27/17 08:56 Dose: 5 mg Aspirin (Aspirin Ec Low Dose*) 81 mg PO DAILY [facility] Last Admin: 05/27/17 08:56 Dose: 81 mg Atorvastatin Calcium (Lipitor*) 40 mg PO 2100 [facility] Last Admin: 05/26/17 19:59 Dose: 40 mg Bisoprolol Fumarate (Zebeta Tab*) 10 mg PO BEDTIME [facility] Last Admin: 05/26/17 19:59 Dose: 10 mg Docusate Sodium (Colace Cap*) 200 mg PO BID [facility] Last Admin: 05/27/17 08:56 Dose: 200 mg Furosemide (Lasix Tab*) 20 mg PO DAILY [facility] Last Admin: 05/27/17 08:56 Dose: 20 mg Glipizide (Glucotrol Xl*) 5 mg PO BID@0800,1700 [facility] Last Admin: 05/27/17 08:56 Dose: 5 mg Heparin Sodium (Porcine) (Heparin Vial(*)) 5,000 units SUBCUT Q8HR [facility] Last Admin: 05/27/17 15:32 Dose: 5,000 units Insulin Glargine (Lantus(*)) 10 units SUBCUT Q24H [facility] Last Admin: 05/27/17 10:34 Dose: 10 unit Insulin Human Lispro (Humalog*) 0 units SUBCUT ACHS [facility] PRN Reason: Protocol Last Admin: 05/27/17 12:55 Dose: 6 unit Melatonin (Melatonin (Nf)) 3 mg PO BEDTIME PRN; Protocol PRN Reason: Sleep Metformin HCl (Glucophage*) 1,000 mg PO BID WITH MEALS [facility] Last Admin: 05/27/17 08:56 Dose: 1,000 mg Omeprazole (Prilosec Cap*) 20 mg PO DAILY@0600 [facility] Last Admin: 05/27/17 04:21 Dose: Not Given Ondansetron HCl (Zofran Inj*) 4 mg IV Q6H PRN PRN Reason: NAUSEA Oxycodone HCl (Roxycodone Tab*) 5 mg PO Q4H PRN PRN Reason: PAIN Last Admin: 05/26/17 14:42 Dose: 5 mg Oxycodone HCl (Roxycodone Tab*) 10 mg PO Q4H PRN PRN Reason: SEVERE PAIN Last Admin: 05/27/17 12:56 Dose: 10 mg Oxycodone HCl (Oxycontin(*)) 10 mg PO Q12HR [facility] Last Admin: 05/27/17 08:56 Dose: 10 mg Prednisone (Deltasone Tab*) 40 mg PO DAILY [facility] Last Admin: 05/27/17 10:34 Dose: 40 mg Tiotropium [place] (Spiriva Respimat 2.5 Mcg(Nf)) 1 puff INH DAILY [facility] Last Admin: 05/27/17 08:39 Dose: Not Given Tramadol HCl (Ultram*) 50 mg PO Q8HR [facility] Last Admin: 05/27/17 15:07 Dose: Not Given Valsartan (Diovan Tab*) 320 mg PO DAILY [facility] Last Admin: 05/27/17 08:55 Dose: 320 mg Vital Signs - 8 hr 05/27/17 05/27/17 05/27/17 08:56 10:36 11:51 Temperature 98.1 F Pulse Rate 71 Respiratory 16 16 16 Rate Blood Pressure 152/74 (mmHg) O2 Sat by Pulse 97 Oximetry 05/27/17 12:56 Temperature Pulse Rate Respiratory 18 Rate Blood Pressure (mmHg) O2 Sat by Pulse Oximetry Oxygen Devices in Use Now: Nasal Cannula Appearance: NAD Eyes: No Scleral Icterus Ears/Nose/Mouth/Throat: NL Teeth, Lips, Gums, Mucous Membranes Moist Neck: NL Appearance and Movements; NL JVP, Trachea Midline Respiratory: Symmetrical Chest Expansion and Respiratory Effort, Clear to Auscultation Cardiovascular: NL Sounds; No Murmurs; No JVD, RRR Abdominal: NL Sounds; No Tenderness; No Distention, No Hepatosplenomegaly Extremities: No Edema, No Clubbing, Cyanosis Skin: No Rash or Ulcers, No Nodules or Sclerosis Neurological: Alert and Oriented x 3, NL Sensation, NL Muscle Strength and Tone Result Diagrams: 05/26/17 01:37 05/26/17 01:37 Additional Lab and Data: . Laboratory Results - last 24 hr 05/26/17 05/26/17 05/27/17 16:33 19:57 07:44 POC Glucose (mg/dL) 148 H 145 H 151 H 05/27/17 11:33 POC Glucose (mg/dL) 203 H Assess/Plan/Problems-Billing Assessment: 81 yo female with a PMH of DM, HTN, COPD and CHF admitted on 05/25/17 with left sided sciatica pain in thigh with associated numbness. L2-L3 disc foramin narrowing. Able to now ambulate, likely home 05/28 - Patient Problems (1) Sciatic leg pain Current Visit: Yes Status: Acute Code(s): M54.30 - SCIATICA, UNSPECIFIED SIDE SNOMED Code(s): 12451595 Comment: Able to now ambulate with reduced pain continue prednisone, tylenol prn, oxycontin bid and oxycodone prn outpatient f/u w/ Dr. Mcleod and physical therapy. L2-L3 foraminal compression. (2) CHF (congestive heart failure) Current Visit: Yes Status: Acute Code(s): I50.9 - HEART FAILURE, UNSPECIFIED SNOMED Code(s): 06054730 Comment: - No evidence of exacerbation. - Continue furosemide. (3) COPD (chronic obstructive pulmonary disease) Current Visit: Yes Status: Acute Code(s): J44.9 - CHRONIC OBSTRUCTIVE PULMONARY DISEASE, UNSPECIFIED SNOMED Code(s): 18494101 Comment: - No evidence of acute exacerbation. - Continue nebs prn. (4) Diabetes Current Visit: Yes Status: Acute Code(s): E11.9 - TYPE 2 DIABETES MELLITUS WITHOUT COMPLICATIONS SNOMED Code(s): 40528628 Comment: - Glipizide, metformin. (5) Hyperlipidemia Current Visit: Yes Status: Acute Code(s): E78.5 - HYPERLIPIDEMIA, UNSPECIFIED SNOMED Code(s): 68864400 Comment: - Continue atorvastatin. (6) Hypertension Current Visit: Yes Status: Acute Code(s): I10 - ESSENTIAL (PRIMARY) HYPERTENSION SNOMED Code(s): 23508909 Comment: - SBP 140-160s. - Continue valsartan, amlodipine, furosemide. Status and Disposition: medicine inpatient. Plan d/c 05/28 to home if still able to ambulate. vs SNF 05/29 Attending: Roge Ruiz
[2017-05-27] MEDS: Bisoprolol TAB* 5 MG PO SCH (20:22)
[2017-05-27] MEDS: Atorvastatin* 40 MG TAB PO SCH (20:22)
[2017-05-28] MEDS: traMADol TAB* 50 MG PO SCH (05:54)
[2017-05-28] MEDS: Omeprazole CAP* 20 MG PO SCH (05:55)
[2017-05-28] MEDS: Heparin VIAL(*) 5000 UNITS/ML VIAL (FIVE THOUSAND) SUBCUT SCH (05:55)
[2017-05-28] MEDS ORDERED: Polyethylene Glycol 3350* 17 GM PACKET PO PRN (07:38)
[2017-05-28] MEDS: Insulin LISPRO* 1 UNITS UNIT SUBCUT SCH (09:33)
[2017-05-28] MEDS: Insulin GLARGINE(*) 1 UNITS UNIT SUBCUT SCH (09:33)
[2017-05-28] MEDS: Aspirin EC Low Dose* 81 MG TAB.EC PO SCH (09:40)
[2017-05-28] MEDS: amLODIPine TAB* 5 MG PO SCH (09:40)
[2017-05-28] MEDS: Senna TAB PO SCH ×2 (09:40→14:35)
[2017-05-28] MEDS: Valsartan TAB* 160 MG PO SCH (09:40)
[2017-05-28] MEDS: oxyCODONE SR TAB(*) 10 MG TAB.SR PO SCH (09:40)
[2017-05-28] MEDS: MDI INH SCH (09:41)
[2017-05-28] MEDS: predniSONE TAB* 20 MG PO SCH (09:41)
[2017-05-28] MEDS: TIOTROPIUM RESPIMT 2.5 MCG INH SCH (09:41)
[2017-05-28] MEDS: Furosemide TAB* 20 MG PO SCH (09:41)
[2017-05-28] MEDS: Docusate CAP* 100 MG PO SCH (09:41)
[2017-05-28] MEDS: metFORMIN* 1,000 MG TAB PO SCH (09:41)
[2017-05-28] MEDS: glipiZIDE TAB.XL* 2.5 MG PO SCH (09:41)
[2017-05-28 13:57] VITALS: BP 146/65
--- NOTE | 2017-05-29 04:43 | DS ---
DISCHARGE SUMMARY: DATE OF ADMISSION: 05/25/17 DATE OF DISCHARGE: 05/28/17 ADMITTING PROVIDER: Mike Peralta MD ATTENDING PHYSICIAN: Roge Ruiz MD PRIMARY CARE PHYSICIAN: Dr. Hess, [place], [place]. CHIEF COMPLAINT: Left upper extremity pain. 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 HISTORY OF PRESENT ILLNESS/HOSPITAL COURSE: Mrs. Salazar is an 81-year-old female with past medical history of insulin-dependent diabetes mellitus type 2, hypertension, hyperlipidemia, CHF, chronic respiratory failure secondary to COPD , on 2 L nasal cannula oxygen nightly who presented feeling a twinge in her left lower back approximately 1 month ago with waxing and waning symptoms since then which gradually worsened until night of admission when pain became acutely more severe radiating down her left leg mostly into her anterior upper thigh with subjective numbness in the anterior thigh. She had some nausea without vomiting. Denied any injury falls, fevers, chills, sweats, diarrhea, open wounds , chest pain, shortness of breath other than baseline palpitations or other issues. Pain was worsened by weightbearing. She [place] [facility] [place] for further evaluation, had a CT of her lumbar spine, which demonstrated degenerative disk disease with broad-based protrusion of L2 to L3 level with left posterior lateral disk protrusion, which may narrow the left foramen, no evidence of fracture, degenerative disk disease also noted at L4-L5 and L5-S1. The patient had a CT of the abdomen and pelvis, showed no abnormal masses or fluid collections, small ventral hernia containing omentum. She had a lower extremity CT scan, which demonstrated degenerative changes of the left hip without evidence of fracture and the left lower duplex Doppler demonstrating no evidence of deep vein thrombosis. She was admitted for intractable left leg pain, initially unable to walk. Physical Therapy evaluated the patient daily. She was given Tylenol and opioid pain medications p.r.n. and then also added oxycodone extended release 10 mg q.12 hours. Hospital day #3, prednisone 40 mg daily was added with good relief of symptoms. The patient was able to ambulate to the bathroom with some discomfort, but much greater mobility than previous days. She continued throughout the rest of the afternoon and next day to be able to ambulate with a walker. She had already scheduled to have followup with Orthopedics as an outpatient. Dr. Qureshi of [facility] and although that initial appointment on 05/29/17 had been canceled by the patient as she thought she may be in the hospital, she was encouraged to call again in the morning to reschedule. She was given a referral for outpatient physical therapy. While inpatient, she was continued on her home antihypertensive medications and given substitute Lantus for her home Tresiba FlexTouch Pen. DISCHARGE MEDICATIONS: Include: 1. Tramadol 50 mg p.o. q.6 hours (old). 2. Stiolto Respimat 2.5 - 2.5 mcg 2 puffs inhaled daily. 3. Senna 1 tab p.o. daily (new). 4. Prednisone 40 mg daily for 7 days (new). 5. MiraLAX 17 g p.o. daily (new). 6. Oxycodone 5 to 10 mg p.o. q.4 hours p.r.n. (new) 7. Oxycodone 10 mg p.o. q.2 hours for 7 days (new). 8. Metformin 1000 mg p.o. b.i.d. 9. 20 units subcutaneous Tresiba FlexTouch q.a.m. 10. Glipizide 5 mg p.o. b.i.d. 11. Lasix 20 mg p.o. daily. 12. Docusate 200 mg p.o. b.i.d. (new). 13. Cholecalciferol 2000 units p.o. daily. 14. Bisoprolol fumarate 10 mg p.o. q.h.s. 15. Atorvastatin 40 mg p.o. nightly. 16. Aspirin 81 mg daily. 17. Amlodipine besylate - valsartan 5 - 220 mg p.o. daily. 18. Albuterol 2 puffs inhaled p.o. q.4 hours p.r.n. pain. 19. Acetaminophen 650 mg p.o. q.6 hours p.r.n. DISCHARGE DIET: Carbohydrate consisted heart healthy, unchanged. ACTIVITY LEVEL: No restrictions, but guided by patient's pain and positioning and recommended to have outpatient physical therapy. FOLLOWUP: Patient is scheduled to have followup with Mel Hess 05/31/17 at 2:40 p.m. and Orthopedic, Dr. Jorge Qureshi. Please call to schedule an appointment as well as outpatient physical therapy. TIME SPENT: Time spent on discharge 35 minutes. [id number]/CPS #: [id number] JESUS
== END 2017-05-28 11:40 | disposition home or self-care (01) | DRG 74 ==
LOC: ED 19:47 → MED 23:32 → OBSVTOIN 05-26 15:51
PROVIDERS: ADMIT Hospitalist; ATTEND Internal Medicine
DX: G58.8 Other specified mononeuropathies (principal); J96.10 Chronic respiratory failure, unspecified whether with hypoxia or hypercapnia; I11.0 Hypertensive heart disease with heart failure; I50.9 Heart failure, unspecified; Z99.81 Dependence on supplemental oxygen; M51.16 Intervertebral disc disorders with radiculopathy, lumbar region; E11.9 Type 2 diabetes mellitus without complications; E78.5 Hyperlipidemia, unspecified; J44.9 Chronic obstructive pulmonary disease, unspecified; E66.9 Obesity, unspecified; Z68.38 Body mass index [BMI] 38.0-38.9, adult; Z79.84 Long term (current) use of oral hypoglycemic drugs; Z79.4 Long term (current) use of insulin; Z79.82 Long term (current) use of aspirin; Z79.899 Other long term (current) drug therapy; Z88.0 Allergy status to penicillin; Z87.891 Personal history of nicotine dependence; Z83.3 Family history of diabetes mellitus
CPT/HCPCS: 36415; 72131; 74176; 80053; 82565; 83036; 83605; 83880; 84520; 85025; 85379; 85610; 85730; 86140; 94760; A9270-GY; G8978-GP-CI; G8979-GP-CH; J1644; J2060; J7512

== ENCOUNTER 2019-01-27 09:55 | Inpatient (IN) | payer MEDICARE, BC ==
[2019-01-27] MEDS ORDERED: Diltiazem IV push/loading dose 5 MG/ML 5 ML vial (25 mg) IV SLOW PU ONE ×2 (10:26→13:41)
[2019-01-27] MEDS ORDERED: NS 0.9% 250 ML* 250 ML IV ONE (10:26)
--- NOTE | 2019-01-27 10:31 | ED ---
Shortness of Breath - HPI Summary HPI Summary: This patient is a 83 year old F arriving via ambulance to [facility] with a chief complaint of shortness of breath since 01/27/19 in AM. Patient states that she was previously treated with antibiotics for bronchitis with no relief. Patient states that she still has not gotten over her bronchitis. Patient is on O2 at home only at night. Patient states that she takes baby aspirin. The patient rates the pain /10 in severity. Symptoms aggravated by nothing. Symptoms alleviated by nothing. Patient reports cough with production and shortness of breath. Patient denies nausea, vomiting and chest pain. - History of Current Complaint Chief Complaint: EDShortnessOfBreath Time Seen by Provider: 01/27/19 10:09 Hx Obtained From: Patient Onset/Duration: Lasting Days, Still Present Timing: Constant Dyspnea At: Rest Aggravating Factors: Other Alleviating Factors: Nothing Associated Signs & Symptoms: Cough (Productive) - coughing up "flem" - Allergy/Home Medications Allergies/Adverse Reactions: Allergies Allergy/AdvReac Type Severity Reaction Status Date / Time Penicillins Allergy Unknown Verified 01/27/19 10:43 Reaction Details Home Medications: Home Medications Famotidine TAB* [Pepcid 20 MG TAB*] 20 mg PO DAILY 01/27/19 [History Confirmed 01/27/19] Gabapentin 600 mg PO TID 01/27/19 [History Confirmed 01/27/19] Potassium Chlor TAB* [Klor Con ER TAB*] 10 meq PO DAILY 01/27/19 [History Confirmed 01/27/19] PMH/Surg Hx/FS Hx/Imm Hx Endocrine/Hematology History: Reports: Hx Diabetes Cardiovascular History: Reports: Hx Congestive Heart Failure, Hx Hypercholesterolemia, Hx Hypertension Respiratory History: Reports: Hx Chronic Obstructive Pulmonary Disease (COPD) GI History: Reports: Hx Gall Bladder Disease - Had Gall Bladder removed Sensory History: Reports: Hx Cataracts, Hx Contacts or Glasses, Hx Hearing Problem - [facility] Denies: Hx Hearing Aid Opthamlomology History: Reports: Hx Cataracts, Hx Contacts or Glasses - Immunization History Date of Tetanus Vaccine: unk Date of Influenza Vaccine: utd Infectious Disease History: No Infectious Disease History: Denies: Traveled Outside the [place] in Last 30 Days - Family History Known Family History: Positive: Diabetes - Social History Alcohol Use: None Hx Substance Use: No Substance Use Type: Reports: None Hx Tobacco Use: Yes Smoking Status (MU): Former Smoker Review of Systems Negative: Chest Pain Positive: Shortness Of Breath, Cough Negative: Vomiting, Nausea Genitourinary: Negative Musculoskeletal: Negative Skin: Negative Neurological: Negative All Other Systems Reviewed And Are Negative: Yes Physical Exam - Summary Physical Exam Summary: VITAL SIGNS: Reviewed. GENERAL: Patient is a obese elderly FEMALE who is lying comfortable in the stretcher. Patient is not in any acute respiratory distress. HEAD AND FACE: No signs of trauma. No ecchymosis, hematomas or skull depressions. No sinus tenderness. EYES: PERRLA, EOMI x 2, No injected conjunctiva, no nystagmus. EARS: Hearing grossly intact. Ear canals and tympanic membranes are within normal limits. MOUTH: Oropharynx within normal limits. NECK: Supple, trachea is midline, no adenopathy, no JVD, no carotid bruit, no c- spine tenderness, neck with full ROM. CHEST: Symmetric, no tenderness at palpation. LUNGS: Clear to auscultation bilaterally. No wheezing. Decreased crackles at base. CVS: irregular rate and rhythm, S1 and S2 present, no murmurs or gallops appreciated. 6 liters of O2 via nasal cannula. ABDOMEN: Soft, non-tender. No signs of distention. No rebound, no guarding, and no masses palpated. Bowel sounds are normal. EXTREMITIES: FROM in all major joints, bilateral lower extremity edema, no cyanosis or clubbing. NEURO: Alert and oriented x 3. No acute neurological deficits. Speech is normal and follows commands. SKIN: Dry and warm. Triage Information Reviewed: Yes Vital Signs On Initial Exam: Initial Vitals Temp Pulse Resp BP Pulse Ox 96.5 F 126 22 137/78 93 01/27/19 10:06 01/27/19 10:06 01/27/19 10:06 01/27/19 10:06 01/27/19 10:06 Vital Signs Reviewed: Yes Diagnostics - Vital Signs Vital Signs Temp Pulse Resp BP Pulse Ox 01/27/19 10:06 96.5 F 126 22 137/78 93 - Laboratory Result Diagrams: 01/27/19 12:05 01/28/19 00:55 Lab Statement: Any lab studies that have been ordered have been reviewed, and results considered in the medical decision making process. 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 THE SETTING OF HYPOINFLATED LUNGS. ASPIRATION COULD PRESENT SIMILARLY. ED Physician has reviewed this report. - EKG 1021 Cardiac Rate: Other Rate - Atrial Fibrilation at 131 bpm EKG Rhythm: Atrial Fibrillation Summary of EKG Findings: EKG reveals a Atrial Fibrilation with RBR at [address] elevations. EKG has no prior comparisons. Course/Dx - Course Assessment/Plan: 83-year-old female presents to the emergency department with a chief complaint of weakness, shortness of breath, ambulatory extremity edema. Blood work shows normocytic normochromic anemia with a hemoglobin 7 hematocrit and 1, platelet count urgent 27. Sodium is 147, potassium 2.1, chloride 130, carbon dioxide 13, creatinine understand 0.3, glucose is 61, calcium of less than 4, total bilirubin 0.1, AST 5 ENT for CPK of less than 10, CK-MB 0.5, BNP 879 total protein less than 3 albumin 1.5, globulin 1.5. So all this labs are abnormal and is believe that all this results in the [employer] diluted. The blood drawn was done below an IV access which was getting IV fluids by EMS. Therefore, we will repeat the blood work immediately. Second troponin blood tests within normal limits except for glucose of 324, CRP of 12, and BNP 433. EKG shows atrial fibrillation with RVR 133 bpm. The patient was given Cardizem 15 mg IV. At this point the patients heart rate is ranging between 90 and 110. I discussed my physical exam and findings with and Dr. Ness from the hospital services who accepted the patient for admission. - Diagnoses Provider Diagnoses: Atrial fibrillation - Physician Notifications Discussed Care of Patient With: Nelson Nses - Hospitalist Time Discussed With Above Provider: 12:56 Instructed by Provider To: Other - Dr. Ness accepted agrees for patient to be admitted. - Critical Care Time Critical Care Time: 30-74 min Discharge ED - Sign-Out/Discharge Documenting (check all that apply): Patient Departure - admited Patient Received Moderate/Deep Sedation with Procedure: No - Discharge Plan Condition: Stable Disposition: ADMITTED TO [facility] - Billing Disposition and Condition Condition: STABLE Disposition: Admitted to [facility] - Attestation Statements Document Initiated by Scribe: Yes Documenting Scribe: Leah Mendez Provider For Whom Scribe is Documenting (Include Credential): Dr. Viktor Santiago MD Scribe Attestation: Leah Meraz scribed for Dr. Viktor Santiago MD on 01/28/19 at 1020. Scribe Documentation Reviewed: Yes Provider Attestation: The documentation as recorded by the Leah hollins accurately reflects the service I personally performed and the decisions made by , Dr. Viktor Santiago MD Status of Scribe Document: Viewed
[2019-01-27 10:45] LABS: ABS Eosinophils 0.1 10^3/ul (0-0.6); ABS Lymphocytes 0.6 10^3/ul (1.0-4.8); ABS Monocytes 0.2 10^3/ul (0-0.8); ABS Neutrophils 2.7 10^3/ul (1.5-7.7); Eosinophil % 1.8 %; Hematocrit 21 % (35-47); Lymphocyte % 17.3 %; Mean Corpuscular HGB Conc 33 g/dL (31-36); Mean Corpuscular Hemoglobin 31 pg (27-31); Mean Corpuscular Volume 93 fL (80-97); Mean Platelet Volume 6.8 fL (7.4-10.4); Platelet Count 127 10^3/uL (150-450); Red Blood Count 2.29 10^6 /uL (3.70-4.87); Red Cell Distribution Width 16 % (10-15); White Blood Count 3.6 10^3/uL (3.5-10.8)
[2019-01-27 11:02] LABS: ALT 4 U/L (7-52); AST 5 U/L (13-39); Alkaline Phosphatase 26 U/L (34-104); Blood Urea Nitrogen 9 mg/dL (6-24); C Reactive Protein 5.53 mg/L (<8.01); Creatine Kinase < 10 U/L (10-223); EGFR African American 257.7 (>60); Glucose 161 mg/dL (70-100)
[2019-01-27 11:05] LABS: Troponin I 0.01 ng/mL (<0.04)
[2019-01-27 11:07] LABS: CKMB ng/mL 0.5 ng/mL (0.6-6.3)
[2019-01-27 11:19] LABS: Urine Appearance Clear; Urine Bilirubin Negative (Negative); Urine Blood Negative (Negative); Urine Color Yellow; Urine Glucose 3+(>=500 mg/dL) (Negative); Urine Ketones Negative (Negative); Urine Nitrite Negative (Negative); Urine Protein Negative (Negative); Urine Urobilinogen Negative (Negative)
[2019-01-27 11:21] LABS: Albumin 1.5 g/dL (3.2-5.2); Anion Gap 4 mmol/L (2-11); CO2 Carbon Dioxide 13 mmol/L (22-32); Calcium < 4.0 mg/dL (8.6-10.3); Chloride 130 mmol/L (101-111); Globulin 1.5 g/dL (2-4); Potassium 2.1 mmol/L (3.5-5.0); Sodium 147 mmol/L (135-145); Total Protein < 3.0 g/dL (6.4-8.9)
[2019-01-27 12:16] LABS: ABS Basophils 0.1 10^3/ul (0-0.2); ABS Lymphocytes 0.7 10^3/ul (1.0-4.8); ABS Monocytes 0.1 10^3/ul (0-0.8); ABS Neutrophils 8.5 10^3/ul (1.5-7.7); Eosinophil % 0.4 %; Hematocrit 43 % (35-47); Hemoglobin 14.2 g/dL (12.0-16.0); Lymphocyte % 7.2 %; Mean Corpuscular HGB Conc 33 g/dL (31-36); Mean Corpuscular Hemoglobin 30 pg (27-31); Mean Corpuscular Volume 92 fL (80-97); Mean Platelet Volume 7.3 fL (7.4-10.4); Platelet Count 255 10^3/uL (150-450); Red Blood Count 4.67 10^6 /uL (3.70-4.87); Red Cell Distribution Width 16 % (10-15); White Blood Count 9.4 10^3/uL (3.5-10.8)
[2019-01-27 12:34] LABS: Albumin 3.8 g/dL (3.2-5.2); Albumin/Globulin Ratio 1.2 (1-3); BUN/Creatinine Ratio 25.4 (8-20); C Reactive Protein 12.04 mg/L (<8.01); Calcium 9.7 mg/dL (8.6-10.3); EGFR African American 95.4 (>60); EGFR Non-African American 78.8 (>60); Globulin 3.1 g/dL (2-4); Potassium 4.9 mmol/L (3.5-5.0); Total Bilirubin 0.4 mg/dL (0.2-1.0); Total Protein 6.9 g/dL (6.4-8.9)
[2019-01-27 12:35] LABS: Troponin I 0.03 ng/mL (<0.04)
[2019-01-27 12:38] LABS: CKMB ng/mL 1.2 ng/mL (0.6-6.3)
[2019-01-27 13:06] LABS: Magnesium 1.4 mg/dL (1.9-2.7)
[2019-01-27] MEDS ORDERED: Acetaminophen TAB* 325 MG PO PRN (13:43)
[2019-01-27] MEDS ORDERED: Albuterol HFA INHALER* 8 gm MDI INH PRN (13:43)
[2019-01-27] MEDS ORDERED: Enoxaparin(*) 100 MG/ML SYR SUBCUT SCH (14:00)
[2019-01-27] MEDS ORDERED: Diltiazem IV BAG* D5W Premix 125 MG/125 ML BAG IV SCH ×2 (14:00→19:00)
[2019-01-27] MEDS ORDERED: Diltiazem DRIP* 100 MG/100 ML ADDV.BAG IV SCH (14:00)
[2019-01-27] MEDS: Gabapentin CAP(*) 300 MG PO SCH ×2 (16:51→22:01)
[2019-01-27] MEDS: predniSONE TAB* 20 MG PO SCH (16:51)
[2019-01-27] MEDS: Insulin GLARGINE(*) 1 UNITS UNIT SUBCUT SCH (16:52)
[2019-01-27] MEDS: cefTRIAXone(*) 1 GM in NS 0.9% 50 ML* 50 ML IVPB SCH (16:53)
[2019-01-27] MEDS ORDERED: Magnesium Sulf 4 GM/100 ML IV* 4,000 MG/100 ML BAG IVPB ONE (18:05)
[2019-01-27] MEDS ORDERED: Furosemide IV* 10 MG/ML VIAL (40 MG) IV ONE (18:05)
--- NOTE | 2019-01-27 18:10 | CONSULT ---
Subjective Date of Service: 01/27/19 Interval History: Date of admission and consult 01/27/2019 PCP: Dr. Alejo's office Service: Hospitalist CC: Shortness of breath Reason for consult: Dyspnea, Afib HPI Anjana Salazar is an 83 year old woman with a history as below. She has noticed worsening dyspnea, edema and productive greenish cough. She has been being treated for respiratory tract infection last few weeks. She acutely worsened early this morning and was found with rapid atrial fibrillation. She remains dyspneic and tachypneic at rest with her heart rates controlled on IV diltiazem infusion. She has no history of atrial fibrillation prior to this. She denies any chest discomfort or recent syncope. Pmhx: CHF for around 5 years, EF unknown HTN with white coat component as well Obesity DM COPD PAST SURGICAL HISTORY: Cataract extraction, cholecystectomy, appendectomy. ALLERGIES: PENICILLIN. FAMILY HISTORY: Notable for 3 sisters with COPD, mother of complications of diabetes. Father at 80, disease of unknown causes. SOCIAL HISTORY: She is retired from the [employer]. She is , has 3 children. She quit tobacco about age 46. No alcohol or drug use. Medications Active Medications: Acetaminophen (Tylenol Tab*) 650 mg PO Q6H PRN PRN Reason: FEVER/PAIN Albuterol (Ventolin Hfa Inhaler*) 2 puff INH Q4H PRN PRN Reason: SOB/WHEEZING Aspirin (Aspirin Ec Tab*) 81 mg PO DAILY [facility] Atorvastatin Calcium (Lipitor*) 40 mg PO 2100 [facility] Bisoprolol Fumarate (Zebeta Tab*) 10 mg PO BEDTIME [facility] Cholecalciferol (Vitamin D Tab*) 2,000 units PO DAILY [facility] Enoxaparin Sodium (Lovenox(*)) 100 mg SUBCUT Q12H [facility] Last Admin: 01/27/19 16:51 Dose: 100 mg Famotidine (Pepcid Tab*) 20 mg PO DAILY [facility] Furosemide (Lasix Tab*) 20 mg PO DAILY [facility] Furosemide (Lasix Iv*) 80 mg IV ONCE ONE Stop: 01/27/19 18:06 Gabapentin (Neurontin Cap(*)) 600 mg PO TID [facility] Last Admin: 01/27/19 16:51 Dose: 600 mg Glipizide (Glucotrol Xl*) 5 mg PO BID [facility] Diltiazem/Dextrose (Cardizem Iv D5w Bag* Premix) 125 mg in 125 mls @ 5 mls/hr IV .INITIAL RATE [facility]; Protocol Last Admin: 01/27/19 14:08 Dose: 5 mls/hr Ceftriaxone Sodium 1 gm/ (Sodium Chloride) 50 mls @ 100 mls/hr IVPB Q24H [facility] Last Admin: 01/27/19 16:53 Dose: 100 mls/hr Magnesium Sulfate (Magnesium Sulf 4 Gm/100 Ml Iv*) 4,000 mg in 100 mls @ 33.333 mls/hr IVPB ONCE ONE Stop: 01/27/19 21:04 Insulin Glargine (Lantus(*)) 15 units SUBCUT Q24H [facility] Last Admin: 01/27/19 16:52 Dose: 15 unit Insulin Human Lispro (Humalog*) 0 units SUBCUT ACHS [facility]; Protocol Potassium Chloride (Klor Con Er Tab*) 10 meq PO DAILY [facility] Prednisone (Deltasone Tab*) 40 mg PO DAILY [facility] Last Admin: 01/27/19 16:51 Dose: 40 mg Tiotropium [place]/Olodaterol (Stiolto Respimat Inh [place] (60 Puff)) 2 puff INH DAILY [facility] Home Medications: Albuterol HFA INHALER* 2 puff PO Q4H PRN 05/25/17 [History Confirmed 01/27/19] Amlodipine Besylate/Valsartan [Amlodipine Besylate/Valsa 5-320 mg-] 1 tab PO DAILY 05/25/17 [History Confirmed 01/27/19] Aspirin [Aspirin 81 MG TAB] 81 mg PO DAILY 05/25/17 [History Confirmed 01/27/19] Atorvastatin* [Lipitor 40 MG*] 40 mg PO 2100 05/25/17 [History Confirmed ] Bisoprolol Fumarate [Bisoprolol Fumarate-] 10 mg PO BEDTIME 05/25/17 [History Confirmed 01/27/19] Cholecalciferol (Vitamin D3) [Vitamin D3] 2,000 unit PO DAILY 05/25/17 [History Confirmed 01/27/19] Furosemide TAB* [Lasix TAB*] 20 mg PO DAILY 05/25/17 [History Confirmed 01/27/19 ] Metformin HCl [Glucophage] 1,000 mg PO BID 05/25/17 [History Confirmed 01/27/19] Tiotropium Brom/Olodaterol [Stiolto Respimat Inh Hodge (60 puff)] 2 puff IN DAILY 05/25/17 [History Confirmed 01/27/19] glipiZIDE [Glipizide ER] 5 mg PO BID 05/25/17 [History Confirmed 01/27/19] Insulin Degludec [Tresiba Flextouch U-100] 20 unit SC DAILY 05/26/17 [History Confirmed 01/27/19] Acetaminophen TAB* [Tylenol TAB*] 650 mg PO Q6H PRN #60 tab 05/28/17 [Rx Confirmed 01/27/19] Famotidine TAB* [Pepcid 20 MG TAB*] 20 mg PO DAILY 01/27/19 [History Confirmed 01/27/19] Gabapentin 600 mg PO TID 01/27/19 [History Confirmed 01/27/19] Potassium Chlor TAB* [Klor Con ER TAB*] 10 meq PO DAILY 01/27/19 [History Confirmed 01/27/19] Review of Systems - Measurements Intake and Output: Intake and Output Last 24 Hours 01/25/19 01/26/19 01/27/19 01/28/19 06:59 06:59 06:59 06:59 Weight 256 lb Other: Estimated Void Large Date of Last Bowel 01/27/19 Movement Estimated Stool Amount Large - Review of Systems Constitutional Symptoms: Positive: Weakness, Fatigue Negative: Fever Dermatology: Negative: Rash, Skin Lesions HEENT: Negative: Change in Hearing, Vertigo Eyes: Negative: Change in Vision, Double Vision Thyroid: Negative: Palpitations, Weight Loss, Weight Gain Pulmonary: Positive: Cough, Sputum, Respiratory Distress, Shortness of Breath, COPD, Exercise Intolerance, Home Oxygen Negative: Hemoptysis Cardiology: Positive: Normal, Shortness of Breath, Swelling of Ankles, Edema, Orthopnea Negative: Chest Pain, Palpitations, Peripheral Vascular Dis, Faintness, Syncope Gastroenterology: Negative: Abdominal Pain, Nausea, Vomiting, Anorexia, Blood in Stools, Haematemesis, Melena Genital - Urinary: Negative: Dysuria, Hematuria Musculoskeletal: Negative: Joint Pain, Joint Stiffness Endocrinology: Negative: Diabetes, Hyperglycemia, Hypoglycemia, Diabetic Foot Ulcers, Calluses, Hirsutism, Menstrual Abnormalities, Polydipsia, Polyuria, Gynecomastia , Pituitary Disease, Other Hematologic/Lymphatic: Positive: Use of Antiplatelet Drugs Negative: Use of Anticoagulant Neurology: Negative: Change in Speech, Change in Sphincter Function, Change in Walking, Hx of Stroke\TIA, Hx Seizures Psychiatry: Negative: Unusual Anxiety, Suicidal Ideation Allergic/Immunologic: Negative: Hx HIV, Immunocompromise Review of Systems Statement: All other review of systems negative, unless stated above. Objective Vital Signs: Temp Pulse Resp BP Pulse Ox 97.9 F 88 24 105/83 94 01/27/19 16:45 01/27/19 16:45 01/27/19 16:51 01/27/19 16:45 01/27/19 16:45 Oxygen Devices in Use Now: Nasal Cannula Appearance: obese, tachypneic, able to converse Ears/Nose/Mouth/Throat: Clear Oropharnyx, Mucous Membranes Moist Neck: Trachea Midline, - - uncertain jvp Respiratory: Clear to Auscultation, - - tachypnea iwth increased work of breathing Cardiovascular: - - tachycardic, irregular, distant, no clear murmur noted Abdominal: NL Sounds; No Tenderness; No Distention Extremities: - - obese and edematous Skin: No Rash or Ulcers Neurological: Alert and Oriented x 3 Laboratory Results: 01/27/19 12:05 01/27/19 12:05 glucose 324 Total Bilirubin 0.40 mg/dL (0.2-1.0) 01/27/19 12:05 AST 11 U/L (13-39) L 01/27/19 12:05 ALT 11 U/L (7-52) 01/27/19 12:05 Alkaline Phosphatase 66 U/L (34-104) 01/27/19 12:05 CK-MB (CK-2) 1.2 ng/mL (0.6-6.3) 01/27/19 12:05 B-Natriuretic Peptide 433 pg/mL (<=100) H 01/27/19 12:05 Total Protein 6.9 g/dL (6.4-8.9) 01/27/19 12:05 Albumin 3.8 g/dL (3.2-5.2) 01/27/19 12:05 Globulin 3.1 g/dL (2-4) D 01/27/19 12:05 Albumin/Globulin Ratio 1.2 (1-3) 01/27/19 12:05 TSH 0.63 mcIU/mL (0.34-5.60) 01/27/19 15:18 01/27/19 01/27/19 01/27/19 10:31 12:05 15:18 Troponin I 0.01 0.03 0.03 01/27/2019 mg 1.4 Diagnostic Imaging: Exam Date: 01/27/19 INDICATION: Shortness of breath IMPRESSION: BIBASILAR AIRSPACE 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 ASPIRATION COULD PRESENT SIMILARLY.. EKG Data: ekg on admission: Afib 130 bpm, LAFB Assessment/Plan 1. Acute on chronic HF - EF unknown 2. Paroxysmal atrial fibrillation - New diagnosis 3. Obesity 4. DM 5. HTN 6. COPD on 02 - Exacerbation/respiratory tract infection per Primary service - Lasix 80 mg IV and 4 grams IV magnesium x 1 now (ordered). Given another 40 mg overnight (ordered). Labs in AM (ordered) - Luque catheter overnight for strict i/o and d/c tomorrow (ordered) - Change home potassium supplement to spironolactone 25 mg po daily - Change SQ lovenox (received dose today) to eliquis 5 mg po bid first dose tomorrow AM (ordered) - Discontinue aspirin (ordered) - Given digoxin 500 mcg x 1 now (ordered) and try to wean down diltiazem gtt ( ordered) - Continue home bisoprolol 10 mg po daily - DM management per Primary service - I am uncertain how much infection is driving her dyspnea. Her WBC is normal and she is afebrile. She may have been going into heart failure and acutely exacerbated by recent atrial fibrillation. We discussed risks, benefits, alternatives of TOÑO/cardioversion to restore sinus rhythm and try to improve symptoms and she is agreeable. Pending LVEF (if systolic dysfunction) may add a month of amiodarone afterwards. Thank you for allowing me to participate in the cardiovascular care of this patient. Please do not hesitate to contact me with questions or concerns.
[2019-01-27] MEDS: Insulin LISPRO* 1 UNITS UNIT SUBCUT SCH ×2 (18:16→21:59)
[2019-01-27] MEDS ORDERED: Digoxin IV* 0.5 MG/2 ML AMP (0.25 MG/ML) IV SLOW PU ONE (18:19)
[2019-01-27 18:54] LABS: Troponin I 0.04 ng/mL (<0.04)
[2019-01-27] MEDS: Spironolactone TAB* 25 MG PO SCH (19:33)
[2019-01-27] MEDS: Diltiazem IV BAG* D5W Premix 125 MG/125 ML BAG IV SCH ×2 (21:14→23:33)
[2019-01-27 22:00] LABS: Urine Appearance Clear; Urine Bilirubin Negative (Negative); Urine Blood Negative (Negative); Urine Color Straw; Urine Glucose 3+(>=500 mg/dL) (Negative); Urine Ketones Negative (Negative); Urine Nitrite Negative (Negative); Urine Protein Negative (Negative); Urine Specific Gravity 1.006 (1.010-1.030); Urine Urobilinogen Negative (Negative)
[2019-01-27] MEDS: glipiZIDE TAB.XL* 5 MG PO SCH (22:01)
[2019-01-27] MEDS: Atorvastatin* 40 MG TAB PO SCH (22:01)
[2019-01-27] MEDS: BISOPROLOL 5 MG PO SCH (22:51)
--- NOTE | 2019-01-27 23:24 | HP ---
CC: Mel Hess NP * ADMISSION HISTORY AND PHYSICAL: DATE OF ADMISSION: 01/27/19 CHIEF COMPLAINT: Shortness of breath. HISTORY OF PRESENT ILLNESS: Ms. Salazar is an 83-year-old woman with a history of COPD and CHF, who reports being treated for bronchitis in the last 10 days with her primary care office. She woke up with dyspnea at 2 a.m. this evening, but she was wearing her oxygen as usual. She waited till the morning to come into the hospital. She is not sure what is wrong with her because she saw her primary care doctor 2 days ago and was told that she has finished antibiotic for COPD exacerbation that she was doing okay. She denies any chest pain, but her chest felt heavy overnight. She denies any palpitations, but she does feel short of breath at rest. The patient denies any history of atrial fibrillation or arrhythmias since she cannot give anymore further history about her heart failure. She does admit to lower extremity edema. Last admission was in May of last year to this hospital for low back pain. PAST MEDICAL HISTORY: Includes hyperlipidemia, hypertension, type 2 diabetes, COPD, oxygen dependent at 2 L, and history of congestive heart failure, unclear type. PAST SURGICAL HISTORY: Cataract extraction, cholecystectomy, appendectomy. MEDICATIONS ON ADMISSION: 1. Albuterol inhaler 2 puffs q.4 hours p.r.n. wheezing. 2. Amlodipine/valsartan 1 tab p.o. daily. 3. Aspirin 81 mg p.o. daily. 4. Atorvastatin 40 mg p.o. q.p.m. 5. Bisoprolol 10 mg p.o. q.h.s. 6. Vitamin D 1000 units p.o. daily. 7. Pepcid 20 mg p.o. daily. 8. Furosemide 20 mg p.o. q.a.m. 9. Gabapentin 600 mg p.o. t.i.d. 10. Glipizide ER 5 mg p.o. b.i.d. 11. Tresiba 20 units subcutaneous daily. 12. Metformin 1000 mg p.o. b.i.d. 13. Potassium chloride 10 mEq p.o. q.a.m. 14. Tiotropium bromide/olodaterol 2 inhalations daily. 15. Acetaminophen as needed. ALLERGIES: PENICILLIN. FAMILY HISTORY: Notable for 3 sisters with COPD, mother of complications of diabetes. Father at 80, disease of unknown causes. SOCIAL HISTORY: She is retired from the [employer]. She is , has 3 children. She quit tobacco about age 46. No alcohol or drug use. REVIEW OF SYSTEMS: The patient denies any fever, weight loss, or anorexia. The patient denies any chest pain or palpitations. The patient denies any hemoptysis, but does have nonproductive cough and shortness of breath at rest. The patient denies any nausea, vomiting, or diarrhea. Remainder of her 14- point review of systems was negative other than mentioned in the HPI. PHYSICAL EXAMINATION GENERAL: She is an elderly woman, in no acute distress. VITAL SIGNS: Temperature is 35.8, pulse is 118 to 184, respirations are 16, blood pressure is 107/59, O2 sat 90%. HEENT: Head: Normocephalic, atraumatic. Sclerae anicteric. Pupils are equal , round, and reactive to light and accommodation. Oropharynx is moist, no lesions. NECK: No JVD, no carotid bruits, no thyromegaly. LUNGS: Diminished throughout. No rales or wheezes. HEART: Regular, tachycardic. No murmurs. ABDOMEN: Soft, nontender. Positive bowel sounds. No hepatosplenomegaly. EXTREMITIES: 1+ pitting edema bilaterally. Dorsalis pedis pulses are 1+ bilaterally. NEUROLOGIC: Cranial nerves II through XII are intact. Motor strength is 5/5 throughout. Deep tendon reflexes are symmetric. DIAGNOSTIC STUDIES/LAB DATA: Sodium 137, potassium 4.9, chloride 104, bicarb 28, BUN 18, creatinine 0.71, glucose 324, magnesium 1.4, lactic acid 1.6, white count 9.4, hemoglobin 14.2, hematocrit 43 percent, platelet 255. Arterial blood gas shows pH 7.39, pCO2 38, pO2 76. BNP is 433, troponin is 0.03. EKG shows atrial fibrillation with ventricular rate 131. Chest x-ray shows no infiltrates, but there is some atelectasis at the bases. ASSESSMENT AND PLAN: An 83-year-old woman presenting with dyspnea, which differential would include chronic obstructive pulmonary disease exacerbation, congestive heart failure, or pneumonia. For her possible chronic obstructive pulmonary disease exacerbation, we will start her on oral steroids and give her some intravenous ceftriaxone if in case the outpatient oral antibiotic was not sufficient to treat her bronchitis. She can also have nebulizers as needed. The patient had new onset atrial fibrillation with a rapid ventricular response. This may be due to above noted pulmonary process. It may also be causing her elevated BNP and congestive heart failure symptoms. The patient will be admitted to telemetry and started on diltiazem drip in the ER, which can be further titrated upstairs. To look into her heart failure, she will have an echocardiogram. She can have daily weights and strict intake and output while she is here in the hospital. Because of the new atrial fibrillation, the patient will have a cardiology consultation with an eye towards transesophageal echocardiography guided cardioversion. I have started her on full dose Lovenox until I can discuss the case further with Cardiology. For her type 2 diabetes, we will hold her metformin because of the possibility of cardiac catheterization or renal failure during the hospital stay. We will also switch her to Lantus, which is on formulary, give her a little bit lower dose of that because of the long-acting Tresiba, because she can continue her glipizide and have sliding scale insulin as needed to bring her sugars under better control. I discussed code status with the patient, she wants to be do not resuscitate and intubate. MOLST form was filled out with her today. DVT prophylaxis, she is already on Lovenox for other purposes and does not need anything further. [id number]/CPS #: [id number] MTDD
[2019-01-28] MEDS ORDERED: Diltiazem TAB* 30 MG PO SCH (01:00)
[2019-01-28] MEDS ORDERED: Furosemide IV* 10 MG/ML VIAL (40 MG) IV ONE (01:00)
[2019-01-28 01:18] LABS: BUN/Creatinine Ratio 26.8 (8-20); Calcium 9.9 mg/dL (8.6-10.3); EGFR African American 80.8 (>60); EGFR Non-African American 66.7 (>60); Magnesium 2.6 mg/dL (1.9-2.7)
[2019-01-28 02:41] LABS: Troponin I 0.03 ng/mL (<0.04)
[2019-01-28] MEDS: Apixaban* 5 MG TAB PO SCH ×3 (05:44→21:39)
[2019-01-28] MEDS: Tiotropium Brom/Olodaterol MDI INH SCH (07:10)
[2019-01-28] MEDS ORDERED: Perflutren Lipid Microsphere* 3 ML VIAL ONE (07:57)
--- NOTE | 2019-01-28 08:55 | PN ---
Subjective Date of Service: 01/28/19 Interval History: f/u diastolic HF, afib - Patient received IV lasix, steroids, antibiotics and converted to sinus rhythm - She feels markedly better this AM and is now breathing comfortable laying flat. I am not sure which of the above changes most accounted for this - Echo this AM showed normal LVEF no severe valve disease Medications Active Medications: Acetaminophen (Tylenol Tab*) 650 mg PO Q6H PRN PRN Reason: FEVER/PAIN Albuterol (Ventolin Hfa Inhaler*) 2 puff INH Q4H PRN PRN Reason: SOB/WHEEZING Apixaban (Eliquis*) 5 mg PO BID [facility] Last Admin: 01/28/19 05:44 Dose: 5 mg Atorvastatin Calcium (Lipitor*) 40 mg PO 2100 [facility] Last Admin: 01/27/19 22:01 Dose: 40 mg Bisoprolol Fumarate (Zebeta Tab*) 10 mg PO BEDTIME [facility] Last Admin: 01/27/19 22:51 Dose: 10 mg Cholecalciferol (Vitamin D Tab*) 2,000 units PO DAILY [facility] Dronedarone (Multaq Tab*) 400 mg PO BID [facility] Famotidine (Pepcid Tab*) 20 mg PO DAILY [facility] Furosemide (Lasix Tab*) 40 mg PO DAILY [facility] Gabapentin (Neurontin Cap(*)) 600 mg PO TID [facility] Last Admin: 01/27/19 22:01 Dose: 600 mg Glipizide (Glucotrol Xl*) 5 mg PO BID [facility] Last Admin: 01/27/19 22:01 Dose: 5 mg Ceftriaxone Sodium 1 gm/ (Sodium Chloride) 50 mls @ 100 mls/hr IVPB Q24H [facility] Last Admin: 01/27/19 16:53 Dose: 100 mls/hr Insulin Glargine (Lantus(*)) 15 units SUBCUT Q24H [facility] Last Admin: 01/27/19 16:52 Dose: 15 unit Insulin Human Lispro (Humalog*) 0 units SUBCUT ACHS [facility]; Protocol Last Admin: 01/27/19 21:59 Dose: 15 units Prednisone (Deltasone Tab*) 40 mg PO DAILY [facility] Last Admin: 01/27/19 16:51 Dose: 40 mg Spironolactone (Aldactone Tab*) 25 mg PO DAILY [facility] Last Admin: 01/27/19 19:33 Dose: 25 mg Tiotropium [place]/Olodaterol (Stiolto Respimat Inh [place] (60 Puff)) 2 puff INH DAILY [facility] Last Admin: 01/28/19 07:10 Dose: 2 puff Valsartan (Diovan Tab*) 160 mg PO DAILY [facility] Objective Vital Signs: Temp Pulse Resp BP Pulse Ox 97.5 F 73 16 152/82 98 01/28/19 03:10 01/28/19 03:10 01/28/19 03:10 01/28/19 03:10 01/28/19 03:10 Oxygen Devices in Use Now: Nasal Cannula Appearance: nad, pleasant Ears/Nose/Mouth/Throat: Clear Oropharnyx, Mucous Membranes Moist Neck: Trachea Midline, - - uncertain jvp Respiratory: Symmetrical Chest Expansion and Respiratory Effort, Clear to Auscultation, - Cardiovascular: RRR, - - no significant murmur Abdominal: NL Sounds; No Tenderness; No Distention Extremities: - - obese and edematous Skin: No Rash or Ulcers Neurological: Alert and Oriented x 3 Laboratory Results: 01/27/19 12:05 01/28/19 00:55 Total Bilirubin 0.40 mg/dL (0.2-1.0) 01/27/19 12:05 AST 11 U/L (13-39) L 01/27/19 12:05 ALT 11 U/L (7-52) 01/27/19 12:05 Alkaline Phosphatase 66 U/L (34-104) 01/27/19 12:05 CK-MB (CK-2) 1.2 ng/mL (0.6-6.3) 01/27/19 12:05 B-Natriuretic Peptide 433 pg/mL (<=100) H 01/27/19 12:05 Total Protein 6.9 g/dL (6.4-8.9) 01/27/19 12:05 Albumin 3.8 g/dL (3.2-5.2) 01/27/19 12:05 Globulin 3.1 g/dL (2-4) D 01/27/19 12:05 Albumin/Globulin Ratio 1.2 (1-3) 01/27/19 12:05 TSH 0.63 mcIU/mL (0.34-5.60) 01/27/19 15:18 mg 1.4 on admission now 2.6 htis AM 01/27/19 01/27/19 01/27/19 10:31 12:05 15:18 Troponin I 0.01 0.03 0.03 01/27/19 01/27/19 01/28/19 18:15 22:10 00:55 Troponin I 0.04 H* 0.03 0.03 Diagnostic Imaging: Exam Date: 01/27/19 INDICATION: Shortness of breath IMPRESSION: 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 ASPIRATION COULD PRESENT SIMILARLY.. EKG Data: ekg on admission: Afib 130 bpm, LAFB ekg this AM: NSR, LAFB Assessment/Plan 1. Acute on chronic HFpEF 2. Paroxysmal atrial fibrillation - New diagnosis 3. Obesity 4. DM 5. HTN 6. 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 Please do not hesitate to contact me with questions or concerns.
[2019-01-28] MEDS ORDERED: Furosemide TAB* 20 MG PO SCH (09:00)
[2019-01-28] MEDS ORDERED: Potassium Chlor TAB* 10 MEQ TAB.ER PO SCH (09:00)
[2019-01-28] MEDS ORDERED: Dronedarone TAB* 400 MG PO SCH (09:00)
[2019-01-28] MEDS ORDERED: Aspirin EC TAB* 81 MG TAB.EC PO SCH (09:00)
--- NOTE | 2019-01-28 09:20 | ECHO ---
*[facility]* [place] [address] Fax #: [phone] Transthoracic Echocardiogram Patient: Anjana Salazar I : 1935 Study Date: 01/28/2019 Age: 83 Gender: F HR: 74 bpm Height: 65 in /165.1 cm BSA: 2.22 m^2 Weight: 260.5 lb /118.4 kg BMI: 43.4 kg/m^2 *Brine Room Laborer: * Emma Shetty RD *Referring Physician: * Nathaniel Timmons MD *Reading Physician: * Nathaniel Timmons MD Indications: Congestive Heart Failure. History: Risk factors: Hypertension. Diabetes mellitus. Conclusions Summary: - Left ventricle: The cavity size is normal. Systolic function is normal. The estimated ejection fraction is 55-60%. Wall motion is normal; there are no regional wall motion abnormalities. - Right ventricle: The cavity size is normal. Wall thickness is normal. Systolic function is normal. - Left atrium: The atrium is dilated. - Aortic valve: The findings are consistent with mild stenosis. - Pulmonary arteries: Systolic pressure is mildly to moderately increased. Recommendations: None prior for comparison. Study data: Transthoracic echocardiogram. Procedure: Transthoracic echocardiography was performed. Image quality was adequate. The study was technically limited due to restricted patient mobility and body habitus. Intravenous Definity , 3 mlswas administered. Image enhancement administered by Complete 2D, spectral Doppler, and color flow Doppler. Patient status: Inpatient. Patient room number: 443-1. Rhythm: Normal sinus rhythm. Findings Left ventricle: The cavity size is normal. Systolic function is normal. The estimated ejection fraction is 55-60%. Wall motion is normal; there are no regional wall motion abnormalities. Doppler parameters are consistent with abnormal left ventricular relaxation (grade 1 diastolic dysfunction). Right ventricle: Not well visualized. The cavity size is normal. Wall thickness is normal. Systolic function is normal. Ventricular septum: Well visualized. The ventricular septum is normal. Left atrium: Well visualized. The atrium is dilated. Right atrium: The atrium is normal in size. Mitral valve: Well visualized. The leaflets are mildly thickened. No echocardiographic evidence for prolapse. There is no evidence of stenosis. There is no significant regurgitation. Aortic valve: Not well visualized. The valve is trileaflet. The leaflets are mildly thickened. The findings are consistent with mild stenosis. There is no significant regurgitation. Tricuspid valve: Not well visualized. There is trace regurgitation. Pulmonic valve: Not well visualized. Aorta: The aorta is well visualized and normal size. The aortic root appears normal. The aortic arch appears normal. Pericardium: There is no pericardial effusion. No evidence of pleural fluid accumulation. Pulmonary arteries: Not well visualized. Systolic pressure is mildly to moderately increased. Systemic veins: Well visualized. Inferior vena cava: The vessel is normal in size. There is (>= 50%) respiratory change in the IVC dimension. Pulmonary veins: Visualization of the pulmonary venous anatomy is incomplete, but a significant abnormality is unlikely. Measurements Left ventricle Value Ref Aortic valve Value Ref LETY, LAX (L) 3.6 cm 3.8 - [place] diam, ED 2.2 cm ----- 5.2 [place] diam/bsa, ED 1.0 cm/m^2 ----- ESD, LAX (L) 2.0 cm 2.2 - Peak v, S 2.34 m/sec ----- 3.5 VTI, S 48.4 cm ----- FS, LAX 44 % 27 - 45 Mean grad, S 10.0 mm Hg ----- PW, ED, LAX (H) 1.0 cm 0.6 - Peak grad, S 22.0 mm Hg ----- 0.9 LVOT/AV, VTI ratio 0.57 ----- FS 44 % 27 - 45 EREN, VTI 1.80 cm^2 ----- Mid-wall FS 15 % -------- EREN, Vmax 1.37 cm^2 ----- PW, ED (H) 1.0 cm 0.6 - 0.9 Mitral valve Value Ref PW/ID, ED 0.29 -------- Peak E 0.69 m/sec ----- E', lat [place], TDI (L) 8.6 cm/sec >=10.0 Peak A 1.1 m/sec - ---- E/e', lat [place], TDI 8 -------- Decel time 176 ms ---- - E', med [place], TDI (L) 6.3 cm/sec >=7.0 Peak E/A ratio 0.6 - ---- E/e', med [place], TDI 11 -------- E', avg, TDI 7.5 cm/sec -------- Pulmonic valve Value Ref E/e', avg, TDI 9 <=14 Peak v, S 0.8 m/sec - ---- Peak grad, S 3.0 mm Hg ----- LVOT Value Ref Diam, S 2.00 cm -------- Tricuspid valve Value Ref Area 3.1 cm^2 -------- TR peak v (H) 3.38 m/sec <=2.8 Peak marcin, S 1.02 m/sec -------- Peak RV-RA grad, S 46 mm Hg ----- VTI, S 27.8 cm -------- Max TR marcin 3.38 m/sec ----- Mean grad, S 3 mm Hg -------- SV 87 ml -------- Aortic root Value Ref SV/bsa 39 ml/m^2 -------- Root diam 3.7 cm <4.3 Root max diam, ED 3.7 cm <4.3 Ventricular septum Value Ref IVS, ED (H) 1.0 cm 0.6 - Ascending aorta Value Ref 0.9 AAo AP diam, S 3.6 cm ----- AAo AP diam/bsa, S 1.6 cm/m^2 ----- Right ventricle Value Ref LETY, LAX 2.6 cm -------- Aortic arch Value Ref LETY minor ax, A4C (H) 3.9 cm 1.9 - Arch diam 2.6 cm ----- mid 3.5 Decending aorta Value Ref Left atrium Value Ref Miah peak marcin 0.56 m/sec ----- ML dim, A4C 4.2 cm -------- SI dim, A4C 5.8 cm -------- Inferior vena cava Value Ref Vol/bsa, ES, 1-p 30 ml/m^2 11 - 40 Diam 1.9 cm ----- A4C Vol/bsa, ES, A/L 32 ml/m^2 16 - 34 Right atrium Value Ref SI dim, ES 5.2 cm 3.4 - 5.3 ML dim, ES, A4C 4.3 cm 2.6 - 4.4 SI dim, ES, A4C 5.2 cm 3.4 - 5.3 SI dim/bsa, ES, A4C 2.3 cm/m^2 1.9 - 3.1 Legend: (L) and (H) william values outside specified reference range. Prepared and electronically signed by Nathaniel Timmons MD 01/28/2019 09:19
[2019-01-28] MEDS: Cholecalciferol TAB* 1000 UNITS PO SCH (09:30)
[2019-01-28] MEDS: Insulin LISPRO* 1 UNITS UNIT SUBCUT SCH ×4 (09:30→21:38)
[2019-01-28] MEDS: Furosemide TAB* 20 MG PO SCH (09:30)
[2019-01-28] MEDS: predniSONE TAB* 20 MG PO SCH (09:30)
[2019-01-28] MEDS: Spironolactone TAB* 25 MG PO SCH (09:30)
[2019-01-28] MEDS: Valsartan TAB* 160 MG PO SCH (09:30)
[2019-01-28] MEDS: glipiZIDE TAB.XL* 5 MG PO SCH ×2 (09:31→21:39)
[2019-01-28] MEDS: Gabapentin CAP(*) 300 MG PO SCH ×3 (09:31→21:40)
[2019-01-28] MEDS: Dronedarone TAB* 400 MG PO SCH ×2 (09:31→16:56)
[2019-01-28] MEDS: Famotidine TAB* 20 MG PO SCH (09:31)
[2019-01-28] MEDS: Insulin GLARGINE(*) 1 UNITS UNIT SUBCUT SCH (14:48)
[2019-01-28] MEDS: cefTRIAXone(*) 1 GM in NS 0.9% 50 ML* 50 ML IVPB SCH (16:16)
--- NOTE | 2019-01-28 17:10 | PN ---
Subjective Date of Service: 01/28/19 Interval History: Patient states breathing is better. She was up to chair for a few hours, did not get too tired. She spontaneously converted to NSR overnight. Dr. Timmons saw her this AM, wants to see her in office in 4 weeks. Family History: Unchanged from Admission Social History: Unchanged from Admission Past Medical History: Unchanged from Admission Objective Active Medications: Acetaminophen (Tylenol Tab*) 650 mg PO Q6H PRN PRN Reason: FEVER/PAIN Albuterol (Ventolin Hfa Inhaler*) 2 puff INH Q4H PRN PRN Reason: SOB/WHEEZING Apixaban (Eliquis*) 5 mg PO BID [facility] Last Admin: 01/28/19 09:31 Dose: 5 mg Atorvastatin Calcium (Lipitor*) 40 mg PO 2100 [facility] Last Admin: 01/27/19 22:01 Dose: 40 mg Bisoprolol Fumarate (Zebeta Tab*) 10 mg PO BEDTIME [facility] Last Admin: 01/27/19 22:51 Dose: 10 mg Cholecalciferol (Vitamin D Tab*) 2,000 units PO DAILY [facility] Last Admin: 01/28/19 09:30 Dose: 2,000 units Dronedarone (Multaq Tab*) 400 mg PO 0800,1800 [facility] Last Admin: 01/28/19 16:56 Dose: 400 mg Famotidine (Pepcid Tab*) 20 mg PO DAILY [facility] Last Admin: 01/28/19 09:31 Dose: 20 mg Furosemide (Lasix Tab*) 40 mg PO DAILY [facility] Last Admin: 01/28/19 09:30 Dose: 40 mg Gabapentin (Neurontin Cap(*)) 600 mg PO TID [facility] Last Admin: 01/28/19 14:48 Dose: 600 mg Glipizide (Glucotrol Xl*) 5 mg PO BID [facility] Last Admin: 01/28/19 09:31 Dose: 5 mg Ceftriaxone Sodium 1 gm/ (Sodium Chloride) 50 mls @ 100 mls/hr IVPB Q24H [facility] Last Admin: 01/28/19 16:16 Dose: 100 mls/hr Insulin Glargine (Lantus(*)) 15 units SUBCUT Q24H [facility] Last Admin: 01/28/19 14:48 Dose: 15 unit Insulin Human Lispro (Humalog*) 0 units SUBCUT ACHS [facility]; Protocol Last Admin: 01/28/19 16:55 Dose: 9 units Prednisone (Deltasone Tab*) 40 mg PO DAILY [facility] Last Admin: 01/28/19 09:30 Dose: 40 mg Spironolactone (Aldactone Tab*) 25 mg PO DAILY [facility] Last Admin: 01/28/19 09:30 Dose: 25 mg Tiotropium [place]/Olodaterol (Stiolto Respimat Inh [place] (60 Puff)) 2 puff INH DAILY [facility] Last Admin: 01/28/19 07:10 Dose: 2 puff Valsartan (Diovan Tab*) 160 mg PO DAILY [facility] Last Admin: 01/28/19 09:30 Dose: 160 mg Vital Signs - 8 hr 01/28/19 01/28/19 01/28/19 09:31 11:15 12:02 Temperature 36.4 C Pulse Rate 80 Respiratory 20 20 20 Rate Blood Pressure 136/67 (mmHg) O2 Sat by Pulse 96 Oximetry 01/28/19 01/28/19 01/28/19 14:48 15:15 16:56 Temperature 36.4 C Pulse Rate 80 Respiratory 18 18 18 Rate Blood Pressure 139/67 (mmHg) O2 Sat by Pulse 97 Oximetry Oxygen Devices in Use Now: Nasal Cannula Appearance: alert, no distress Eyes: No Scleral Icterus Ears/Nose/Mouth/Throat: Clear Oropharnyx Neck: NL Appearance and Movements; NL JVP Respiratory: Symmetrical Chest Expansion and Respiratory Effort, Clear to Auscultation, - - diminished throughout Cardiovascular: NL Sounds; No Murmurs; No JVD, RRR Abdominal: NL Sounds; No Tenderness; No Distention Neurological: Alert and Oriented x 3 Lines/Tubes/Other Access: Clean, Dry and Intact Peripheral IV Nutrition: Taking PO's Result Diagrams: 01/27/19 12:05 01/28/19 00:55 Microbiology and Other Data: Microbiology 01/27/19 11:25 Stool Stool Occult Blood (ERICKA) - Final 01/27/19 10:38 Blood Venous Aerobic Blood Culture - Preliminary 01/27/19 10:38 Blood Venous Anaerobic Blood Culture - Preliminary No Growth Day 1 No Growth Day 1 01/27/19 10:31 Blood Venous Aerobic Blood Culture - Preliminary 01/27/19 10:31 Blood Venous Anaerobic Blood Culture - Preliminary No Growth Day 1 No Growth Day 1 EKG Data: Echo: EF 55-60%, no significant valve issues Assess/Plan/Problems-Billing Assessment: 83 year old woman with COPD, obesity, here with new-onset atrial fibrillation, heart failure. - Patient Problems (1) Atrial fibrillation with rapid ventricular response Current Visit: Yes Status: Acute Priority: High Code(s): I48.91 - UNSPECIFIED ATRIAL FIBRILLATION SNOMED Code(s): 238368361351580 Comment: -Spontaneously cardioverted today -Now on Multaq, Eliquis -Cardiology input appreciated (2) Acute diastolic (congestive) heart failure Current Visit: Yes Status: Acute Priority: Medium Code(s): I50.31 - ACUTE DIASTOLIC (CONGESTIVE) HEART FAILURE SNOMED Code(s): 425493998 Comment: -Had symptoms of diastolic failure when in a-fib -CHF resolved with rhythm correction (3) COPD (chronic obstructive pulmonary disease) Current Visit: No Status: Acute Priority: Medium Code(s): J44.9 - CHRONIC OBSTRUCTIVE PULMONARY DISEASE, UNSPECIFIED SNOMED Code(s): 98038269 Comment: - Treated for acute exacerbation with ceftriaxone, prednisone - Continue nebs prn. - Should be discharged on prednisone taper, oral ceftin (4) Type 2 diabetes mellitus Current Visit: Yes Status: Acute Priority: Medium Comment: -A1c shows poor control -Sugars above target, Lantus increased to home dose -Will restart metformin Status and Disposition: inpatient, can likely go home tomorrow.
[2019-01-28] MEDS: Atorvastatin* 40 MG TAB PO SCH (21:39)
[2019-01-28] MEDS: BISOPROLOL 5 MG PO SCH (21:40)
[2019-01-28] MEDS: metFORMIN* 1,000 MG TAB PO SCH (21:40)
[2019-01-29] MEDS ORDERED: Insulin GLARGINE(*) 1 UNITS UNIT SUBCUT SCH ×2 (08:00→21:00)
[2019-01-29] MEDS: Tiotropium Brom/Olodaterol MDI INH SCH (08:03)
[2019-01-29] MEDS: Furosemide TAB* 20 MG PO SCH (08:07)
[2019-01-29] MEDS: Valsartan TAB* 160 MG PO SCH (08:07)
[2019-01-29] MEDS: Gabapentin CAP(*) 300 MG PO SCH ×3 (08:07→21:02)
[2019-01-29] MEDS: Famotidine TAB* 20 MG PO SCH (08:07)
[2019-01-29] MEDS: metFORMIN* 1,000 MG TAB PO SCH ×2 (08:08→21:02)
[2019-01-29] MEDS: glipiZIDE TAB.XL* 5 MG PO SCH ×2 (08:08→21:02)
[2019-01-29] MEDS: Dronedarone TAB* 400 MG PO SCH ×2 (08:08→18:13)
[2019-01-29] MEDS: Spironolactone TAB* 25 MG PO SCH (08:08)
[2019-01-29] MEDS: Apixaban* 5 MG TAB PO SCH ×2 (08:09→21:03)
[2019-01-29] MEDS: Cholecalciferol TAB* 1000 UNITS PO SCH (08:09)
[2019-01-29] MEDS: predniSONE TAB* 20 MG PO SCH (08:09)
[2019-01-29] MEDS: Insulin LISPRO* 1 UNITS UNIT SUBCUT SCH ×4 (08:10→21:03)
--- NOTE | 2019-01-29 08:14 | PN ---
Subjective Date of Service: 01/29/19 Interval History: HOSPITALIST PROGRESS NOTE Patient seen and examined at bedside. Care reviewed and d/w Jenifer Loco RN. She feels a little better today, but still has dyspnea on exertion. I saw her coming back from the bathroom and she was very winded, and took her a good 5 minutes to catch her breath and talk to me. At home she's on 2 liters of O2 only a night, but when she has a cold, she wears 2 liters 28/11. Today she's requiring 7 liters. Family History: Unchanged from Admission Social History: Unchanged from Admission Past Medical History: Unchanged from Admission Objective Active Medications: Acetaminophen (Tylenol Tab*) 650 mg PO Q6H PRN PRN Reason: FEVER/PAIN Albuterol (Ventolin Hfa Inhaler*) 2 puff INH Q4H PRN PRN Reason: SOB/WHEEZING Apixaban (Eliquis*) 5 mg PO BID [facility] Last Admin: 01/29/19 08:09 Dose: 5 mg Atorvastatin Calcium (Lipitor*) 40 mg PO 2100 [facility] Last Admin: 01/28/19 21:39 Dose: 40 mg Bisoprolol Fumarate (Zebeta Tab*) 10 mg PO BEDTIME [facility] Last Admin: 01/28/19 21:40 Dose: 10 mg Cholecalciferol (Vitamin D Tab*) 2,000 units PO DAILY [facility] Last Admin: 01/29/19 08:09 Dose: 2,000 units Dronedarone (Multaq Tab*) 400 mg PO 0800,1800 [facility] Last Admin: 01/29/19 08:08 Dose: 400 mg Famotidine (Pepcid Tab*) 20 mg PO DAILY [facility] Last Admin: 01/29/19 08:07 Dose: 20 mg Furosemide (Lasix Tab*) 40 mg PO DAILY [facility] Last Admin: 01/29/19 08:07 Dose: 40 mg Gabapentin (Neurontin Cap(*)) 600 mg PO TID [facility] Last Admin: 01/29/19 08:07 Dose: 600 mg Glipizide (Glucotrol Xl*) 5 mg PO BID [facility] Last Admin: 01/29/19 08:08 Dose: 5 mg Ceftriaxone Sodium 1 gm/ (Sodium Chloride) 50 mls @ 100 mls/hr IVPB Q24H [facility] Last Admin: 01/28/19 16:16 Dose: 100 mls/hr Insulin Glargine (Lantus(*)) 20 units SUBCUT Q24H [facility] Last Admin: 01/29/19 08:09 Dose: 20 unit Insulin Human Lispro (Humalog*) 0 units SUBCUT ACHS [facility]; Protocol Last Admin: 01/28/19 21:38 Dose: 3 units Metformin HCl (Glucophage*) 1,000 mg PO BID [facility] Last Admin: 01/29/19 08:08 Dose: 1,000 mg Prednisone (Deltasone Tab*) 40 mg PO DAILY [facility] Last Admin: 01/29/19 08:09 Dose: 40 mg Spironolactone (Aldactone Tab*) 25 mg PO DAILY [facility] Last Admin: 01/29/19 08:08 Dose: 25 mg Tiotropium [place]/Olodaterol (Stiolto Respimat Inh [place] (60 Puff)) 2 puff INH DAILY [facility] Last Admin: 01/29/19 08:03 Dose: 2 puff Valsartan (Diovan Tab*) 160 mg PO DAILY [facility] Last Admin: 01/29/19 08:07 Dose: 160 mg Vital Signs - 8 hr 01/29/19 01/29/19 01/29/19 03:15 08:05 08:07 Temperature 97.7 F Pulse Rate 69 73 Respiratory 22 16 18 Rate Blood Pressure 145/73 (mmHg) O2 Sat by Pulse 97 96 Oximetry Oxygen Devices in Use Now: Nasal Cannula - 7 liters Appearance: Pleasant elderly sitting up in bed in mild respiratory distress after exertion, then in NAD after resting Eyes: No Scleral Icterus Ears/Nose/Mouth/Throat: Mucous Membranes Moist Neck: Trachea Midline Respiratory: Symmetrical Chest Expansion and Respiratory Effort, - - BS+ bilaterally diminished with no added sounds Cardiovascular: RRR - Normal S1 and S2 Abdominal: NL Sounds; No Tenderness; No Distention Neurological: Alert and Oriented x 3, NL Muscle Strength and Tone Result Diagrams: 01/27/19 12:05 01/28/19 00:55 Assess/Plan/Problems-Billing Assessment: Mrs Salazar is an 83 yo F with PMH of COPD on home O2 2 liters, HLD, HTN, type 2 DM, diastolic CHF, morbid obesity with BMI 44; who presented to ED with c/o dyspnea, found to have new-onset atrial fibrillation, diastolic heart failure exacerbation, and COPD exacerbation. - Patient Problems (1) Acute on chronic respiratory failure with hypoxemia Comment: - Secondary to COPD and CHF exacerbation. - Still requires 7 liters of O2 - will continue current management, but if no improvement, may need further w/u, including w/u for PE. - LE doppler was negative for DVT. (2) Acute diastolic (congestive) heart failure Comment: - Went in to CHF due to Afib RVR. - Improved now she's back in NSR. - Continue Furosemide. (3) Atrial fibrillation with rapid ventricular response Comment: - Back in NSR - continue Multaq, Eliquis. (4) Type 2 diabetes mellitus Comment: - A1c is 9.5. - Continue Glipizide, metformin, increase Lantus 25 units and monitor. (5) COPD (chronic obstructive pulmonary disease) Comment: - Improving. - Continue bronchodilators, ceftriaxone, prednisone. (6) DVT prophylaxis Comment: - Apixaban. (7) Full code status Comment: Status and Disposition: Inpatient.
[2019-01-29] MEDS ORDERED: Furosemide IV* 10 MG/ML VIAL (40 MG) IV SLOW PU ONE (11:44)
[2019-01-29] MEDS: cefTRIAXone(*) 1 GM in NS 0.9% 50 ML* 50 ML IVPB SCH (15:59)
[2019-01-29] MEDS: Atorvastatin* 40 MG TAB PO SCH (21:02)
[2019-01-29] MEDS: BISOPROLOL 5 MG PO SCH (21:02)
[2019-01-30] MEDS: Insulin LISPRO* 1 UNITS UNIT SUBCUT SCH ×3 (07:58→16:49)
[2019-01-30] MEDS: Tiotropium Brom/Olodaterol MDI INH SCH (08:01)
[2019-01-30] MEDS ORDERED: Furosemide IV* 10 MG/ML VIAL (40 MG) IV SLOW PU ONE (08:05)
--- NOTE | 2019-01-30 08:13 | PN ---
Subjective Date of Service: 01/30/19 Interval History: HOSPITALIST PROGRESS NOTE Patient seen and examined at bedside. Care reviewed and d/w Jenifer Loco RN. She feels worse today. States her dyspnea is unchanged, and she feels weak. She thinks it's the lack of caffeine. Her supplemental O2 is down to 3 liters. Family History: Unchanged from Admission Social History: Unchanged from Admission Past Medical History: Unchanged from Admission Objective Active Medications: Acetaminophen (Tylenol Tab*) 650 mg PO Q6H PRN PRN Reason: FEVER/PAIN Albuterol (Ventolin Hfa Inhaler*) 2 puff INH Q4H PRN PRN Reason: SOB/WHEEZING Apixaban (Eliquis*) 5 mg PO BID [facility] Last Admin: 01/29/19 21:03 Dose: 5 mg Atorvastatin Calcium (Lipitor*) 40 mg PO 2100 [facility] Last Admin: 01/29/19 21:02 Dose: 40 mg Bisoprolol Fumarate (Zebeta Tab*) 10 mg PO BEDTIME [facility] Last Admin: 01/29/19 21:02 Dose: 10 mg Cholecalciferol (Vitamin D Tab*) 2,000 units PO DAILY [facility] Last Admin: 01/29/19 08:09 Dose: 2,000 units Dronedarone (Multaq Tab*) 400 mg PO 0800,1800 [facility] Last Admin: 01/29/19 18:13 Dose: 400 mg Famotidine (Pepcid Tab*) 20 mg PO DAILY [facility] Last Admin: 01/29/19 08:07 Dose: 20 mg Furosemide (Lasix Tab*) 40 mg PO DAILY [facility] Last Admin: 01/29/19 08:07 Dose: 40 mg Gabapentin (Neurontin Cap(*)) 600 mg PO TID [facility] Last Admin: 01/29/19 21:02 Dose: 600 mg Glipizide (Glucotrol Xl*) 5 mg PO BID [facility] Last Admin: 01/29/19 21:02 Dose: 5 mg Ceftriaxone Sodium 1 gm/ (Sodium Chloride) 50 mls @ 100 mls/hr IVPB Q24H [facility] Last Admin: 01/29/19 15:59 Dose: 100 mls/hr Insulin Glargine (Lantus(*)) 25 units SUBCUT Q24H [facility] Last Admin: 01/29/19 21:04 Dose: 25 unit Insulin Human Lispro (Humalog*) 0 units SUBCUT ACHS [facility]; Protocol Last Admin: 01/30/19 07:58 Dose: Not Given Metformin HCl (Glucophage*) 1,000 mg PO BID [facility] Last Admin: 01/29/19 21:02 Dose: 1,000 mg Prednisone (Deltasone Tab*) 40 mg PO DAILY [facility] Last Admin: 01/29/19 08:09 Dose: 40 mg Spironolactone (Aldactone Tab*) 25 mg PO DAILY [facility] Last Admin: 01/29/19 08:08 Dose: 25 mg Tiotropium [place]/Olodaterol (Stiolto Respimat Inh [place] (60 Puff)) 2 puff INH DAILY [facility] Last Admin: 01/30/19 08:01 Dose: 2 puff Valsartan (Diovan Tab*) 160 mg PO DAILY [facility] Last Admin: 01/29/19 08:07 Dose: 160 mg Vital Signs - 8 hr 01/30/19 01/30/19 04:20 07:39 Temperature 98.6 F 97.3 F Pulse Rate 62 71 Respiratory 18 20 Rate Blood Pressure 150/72 143/72 (mmHg) O2 Sat by Pulse 98 91 Oximetry Oxygen Devices in Use Now: Nasal Cannula - 3 liters Appearance: Pleasant elderly lady sitting up in bed in [facility]. Eyes: No Scleral Icterus Ears/Nose/Mouth/Throat: Mucous Membranes Moist Neck: Trachea Midline Respiratory: Symmetrical Chest Expansion and Respiratory Effort, - - BS+ bilaterally with faint bibasilar crackles Cardiovascular: RRR - Normal S1 and S2 Abdominal: NL Sounds; No Tenderness; No Distention Neurological: Alert and Oriented x 3, NL Muscle Strength and Tone Result Diagrams: 01/30/19 10:28 01/30/19 10:27 Assess/Plan/Problems-Billing Assessment: Mrs Salazar is an 83 yo F with PMH of COPD on home O2 2 liters, HLD, HTN, type 2 DM, diastolic CHF, morbid obesity with BMI 44; who presented to ED with c/o dyspnea, found to have new-onset atrial fibrillation, diastolic heart failure exacerbation, and COPD exacerbation. - Patient Problems (1) Acute on chronic respiratory failure with hypoxemia Comment: - Secondary to COPD and CHF exacerbation. - Improving - down to 3 liters of O2. - LE doppler was negative for DVT. (2) Acute diastolic (congestive) heart failure Comment: - Went in to CHF due to Afib RVR. - Improved now she's back in NSR. - Continue Furosemide. (3) Atrial fibrillation with rapid ventricular response Comment: - Back in NSR - continue Maryam Garcia. (4) Type 2 diabetes mellitus Comment: - A1c is 9.5. - Glucose was on the lower side last night and this morning. - Continue Glipizide, metformin, decrease Lantus to 20 units and monitor. (5) COPD (chronic obstructive pulmonary disease) Comment: - Improving. - Continue bronchodilators, ceftriaxone, prednisone. (6) DVT prophylaxis Comment: - Apixaban. (7) Full code status Comment: Status and Disposition: Inpatient. Anticipate d/c in AM.
[2019-01-30] MEDS: Valsartan TAB* 160 MG PO SCH (09:56)
[2019-01-30] MEDS: Gabapentin CAP(*) 300 MG PO SCH ×3 (09:57→21:26)
[2019-01-30] MEDS: Apixaban* 5 MG TAB PO SCH ×2 (09:58→21:25)
[2019-01-30] MEDS: Spironolactone TAB* 25 MG PO SCH (09:58)
[2019-01-30] MEDS: Famotidine TAB* 20 MG PO SCH (09:59)
[2019-01-30] MEDS: predniSONE TAB* 20 MG PO SCH (09:59)
[2019-01-30] MEDS: Dronedarone TAB* 400 MG PO SCH ×2 (09:59→16:50)
[2019-01-30] MEDS: Furosemide TAB* 20 MG PO SCH (09:59)
[2019-01-30] MEDS: metFORMIN* 1,000 MG TAB PO SCH ×2 (10:00→21:26)
[2019-01-30] MEDS: Cholecalciferol TAB* 1000 UNITS PO SCH (10:00)
[2019-01-30] MEDS: glipiZIDE TAB.XL* 5 MG PO SCH ×2 (10:04→21:26)
[2019-01-30 10:40] LABS: ABS Basophils 0.1 10^3/ul (0-0.2); ABS Eosinophils 0.1 10^3/ul (0-0.6); ABS Lymphocytes 1.5 10^3/ul (1.0-4.8); ABS Monocytes 0.9 10^3/ul (0-0.8); ABS Neutrophils 7.2 10^3/ul (1.5-7.7); Eosinophil % 0.8 %; Hematocrit 45 % (35-47); Hemoglobin 14.7 g/dL (12.0-16.0); Lymphocyte % 15.1 %; Mean Corpuscular HGB Conc 33 g/dL (31-36); Mean Corpuscular Hemoglobin 30 pg (27-31); Mean Corpuscular Volume 92 fL (80-97); Mean Platelet Volume 7.1 fL (7.4-10.4); Platelet Count 295 10^3/uL (150-450); Red Blood Count 4.89 10^6 /uL (3.70-4.87); Red Cell Distribution Width 16 % (10-15); White Blood Count 9.7 10^3/uL (3.5-10.8)
[2019-01-30 10:56] LABS: BUN/Creatinine Ratio 34.7 (8-20); Calcium 9.9 mg/dL (8.6-10.3); EGFR African American 89.5 (>60); Magnesium 1.5 mg/dL (1.9-2.7); Potassium 4.1 mmol/L (3.5-5.0)
[2019-01-30] MEDS ORDERED: Insulin LISPRO* 1 UNITS UNIT SUBCUT SCH (14:24)
[2019-01-30] MEDS: cefTRIAXone(*) 1 GM in NS 0.9% 50 ML* 50 ML IVPB SCH (15:54)
[2019-01-30] MEDS ORDERED: Magnesium Sulfate 2 GM IV* 2 GM/50 ML BAG IVPB ONE (20:01)
[2019-01-30] MEDS ORDERED: Insulin GLARGINE(*) 1 UNITS UNIT SUBCUT SCH (21:00)
[2019-01-30] MEDS: BISOPROLOL 5 MG PO SCH (21:25)
[2019-01-30] MEDS: Atorvastatin* 40 MG TAB PO SCH (21:25)
--- NOTE | 2019-01-30 23:06 | DS ---
CC: Mel Hess NP; Dr. Nathaniel Timmons * DISCHARGE SUMMARY: DATE OF ADMISSION: 01/27/19 ANTICIPATED DATE OF DISCHARGE: 01/31/19 TRANSFORMER REPAIRER: Dr. Nathaniel Timmons. DISCHARGE DIAGNOSES: 1. [id number] respiratory failure with hypoxemia. 2. Acute diastolic congestive heart failure exacerbation. 3. Atrial fibrillation with rapid ventricular rate. 4. Chronic obstructive pulmonary disease exacerbation. SECONDARY DIAGNOSES: 1. Hyperlipidemia. 2. Hypertension. 3. Type 2 diabetes. 4. Chronic obstructive pulmonary disease, on 2 L of oxygen. 5. Diastolic congestive heart failure. MEDICATION LIST: 1. Gabapentin 600 mg p.o. t.i.d. 2. Famotidine 20 mg p.o. daily. 3. Atorvastatin 40 mg p.o. at bedtime. 4. Albuterol HFA 2 puffs inhaled q.4 hours p.r.n. for shortness of breath. 5. Vitamin D 2000 units p.o. daily. 6. Bisoprolol 10 mg p.o. at bedtime. 7. Metformin 1000 mg p.o. b.i.d. 8. Tresiba 20 units subcutaneously daily. 9. Glipizide 5 mg p.o. b.i.d. 10. Stiolto Respimat 2 puffs inhaled daily. New Medications: 1. Acetaminophen 650 mg p.o. q.6 hours p.r.n. for pain or fever. 2. Prednisone taper as follows: 40 mg p.o. daily for 3 days, 30 mg p.o. daily for 3 days, 20 mg p.o. daily for 3 days, 10 mg p.o. daily for 3 days, and stop. 3. Cefuroxime 250 mg p.o. b.i.d. for 5 more days. 4. Valsartan 160 mg p.o. daily. 5. Spironolactone 25 mg p.o. daily. 6. Furosemide 40 mg p.o. daily. 7. Multaq 400 mg p.o. b.i.d. 8. Apixaban 5 mg p.o. b.i.d. 9. Magnesium oxide 400 mg p.o. daily. HOSPITAL COURSE: Mrs. Salazar is an 83-year-old lady with a past medical history as stated above who presented to the emergency room with complaints of shortness of breath. She had been diagnosed with bronchitis as an outpatient, continued to have symptoms, and came to the emergency room for further evaluation. For more details of her presentation, I refer you to her history and physical. Her chest x-ray showed bibasilar airspace opacification that likely represents atelectasis. The patient was admitted under the impression of COPD exacerbation, congestive heart failure, and atrial fibrillation with rapid ventricular response. She was seen in consultation by cardiology (Dr. Timmons) and his recommendation was for diuresis, anticoagulation with Eliquis, digoxin, and Cardizem drip. She had a transthoracic echocardiogram that showed ejection fraction of 55% to 60% with no regional wall motion abnormalities and mild aortic stenosis. The patient had progressive improvement of her symptoms, and Dr. Timmons's recommendation was to discontinue her home potassium supplementation and add spironolactone, discontinue home aspirin, continue apixaban, increase her furosemide from 20 to 40 mg, continue bisoprolol, start Multaq 400 mg twice a day, discontinue Norvasc, give her valsartan 160 mg daily with a goal of increased dose to 320 mg eventually, and to continue with statin. The patient initially had high oxygen requirement, up to 7 L of supplemental oxygen, and she was slowly weaned down to 3 L that is close to her baseline. The patient was also able to ambulate with some dyspnea, but she states that this is not far from her baseline. One of her complaints was that she was not feeling well without caffeine, but we went over the indications for caffeine restriction and she is in agreement to continue it. The patient is medically stable for discharge to follow up with her PCP and cardiology as an outpatient. The patient has converted to normal sinus rhythm and has had no further episodes of AFib. Her A1c is 9.5, but while in the hospital her sugar trended to low numbers, especially in the morning, suggesting that she may have a dietary issue. I am not changing her medication dosages at this time, but she will need further followup and medication adjustment as an outpatient. PHYSICAL EXAMINATION: Vital Signs: Temperature 97.3, heart rate is 82, respiratory rate is 20, oxygen saturation 92% on 3 L nasal cannula, and blood pressure is 121/61. General: The patient is a pleasant elderly obese lady, sitting up in bed, in no acute distress. CVS: Normal S1, S2. Regular rate and rhythm. Chest: Breath sounds bilaterally diminished with no added sounds. Extremities: Mild bilateral lower extremity edema. Neuro: She is alert and oriented x3. Able to move all 4 extremities. DIET: Heart-healthy, consistent carb diet. Avoid caffeine. ACTIVITIES: As tolerated. DISPOSITION: To home. STATUS WHILE IN THE HOSPITAL: Inpatient. CONDITION AT THE TIME OF DISCHARGE: Fair. Please keep in mind that this is a summarized version of this patient's hospital stay. If you need more information, please feel free to call me at [phone] or please obtain the full medical records. TIME SPENT: Approximately 45 minutes were spent to complete this discharge. [id number]/CPS #: [id number] JESUS
[2019-01-31 04:34] VITALS: BP 142/82
[2019-01-31 05:33] LABS: BUN/Creatinine Ratio 40.7 (8-20); Calcium 9.9 mg/dL (8.6-10.3); EGFR African American 81.9 (>60); EGFR Non-African American 67.7 (>60); Potassium 4.7 mmol/L (3.5-5.0)
[2019-01-31] MEDS: Tiotropium Brom/Olodaterol MDI INH SCH (08:12)
[2019-01-31] MEDS: Insulin LISPRO* 1 UNITS UNIT SUBCUT SCH ×2 (08:27→13:24)
--- NOTE | 2019-01-31 09:18 | DCNOTE ---
Discharge Note: Patient is breathing better. On baseline home O2 2L. Cough continues. Happy with resolution of LE edema. Selected Entries 01/31/19 01/31/19 04:34 08:12 Pulse Rate 58 88 Respiratory 15 18 Rate Blood Pressure 142/82 (mmHg) O2 Sat by Pulse 100 90 Oximetry Lungs: clear, no rales Heart; RRR A/P: ready for discharge Can take furosemide PRN.
[2019-01-31] MEDS: Valsartan TAB* 160 MG PO SCH (09:42)
[2019-01-31] MEDS: Gabapentin CAP(*) 300 MG PO SCH (09:42)
[2019-01-31] MEDS: metFORMIN* 1,000 MG TAB PO SCH (09:43)
[2019-01-31] MEDS: Dronedarone TAB* 400 MG PO SCH (09:43)
[2019-01-31] MEDS: Furosemide TAB* 20 MG PO SCH (09:44)
[2019-01-31] MEDS: Apixaban* 5 MG TAB PO SCH (09:44)
[2019-01-31] MEDS: glipiZIDE TAB.XL* 5 MG PO SCH (09:44)
[2019-01-31] MEDS: Cholecalciferol TAB* 1000 UNITS PO SCH (09:45)
[2019-01-31] MEDS: predniSONE TAB* 20 MG PO SCH (09:45)
[2019-01-31] MEDS: Famotidine TAB* 20 MG PO SCH (09:45)
[2019-01-31] MEDS: Spironolactone TAB* 25 MG PO SCH (09:46)
== END 2019-01-31 13:45 | disposition home health service (06) | DRG 291 ==
LOC: ED 09:55 → MEDTELE 13:38
PROVIDERS: ADMIT Internal Medicine; ATTEND Internal Medicine
DX: I11.0 Hypertensive heart disease with heart failure (principal); I50.31 Acute diastolic (congestive) heart failure; J96.20 Acute and chronic respiratory failure, unspecified whether with hypoxia or hypercapnia; J44.1 Chronic obstructive pulmonary disease with (acute) exacerbation; Z68.41 Body mass index [BMI] 40.0-44.9, adult; Z99.81 Dependence on supplemental oxygen; E66.01 Morbid (severe) obesity due to excess calories; I48.0 Paroxysmal atrial fibrillation; E11.9 Type 2 diabetes mellitus without complications; E78.5 Hyperlipidemia, unspecified; Z66 Do not resuscitate; I35.0 Nonrheumatic aortic (valve) stenosis; Z79.84 Long term (current) use of oral hypoglycemic drugs; Z79.1 Long term (current) use of non-steroidal anti-inflammatories (NSAID); Z79.82 Long term (current) use of aspirin; Z79.51 Long term (current) use of inhaled steroids; Z79.899 Other long term (current) drug therapy; Z88.0 Allergy status to penicillin; Z82.5 Family history of asthma and other chronic lower respiratory diseases; Z83.3 Family history of diabetes mellitus; Z87.891 Personal history of nicotine dependence
CPT/HCPCS: 36415; 71045; 80048; 80053; 81003; 82270; 82550; 82553; 82803; 82947; 83036; 83605; 83735; 83880; 84443; 84484; 85025; 85379; 86140; 87040; 93005; 93306; 93970; 94640; 99284; A9270-GY; C8929; J0696; J1160; J1650; J1940; J3475; J3490; J3535; J7512

== ENCOUNTER 2019-02-11 12:01 | Inpatient (IN) | payer MEDICARE, BC ==
--- NOTE | 2019-02-11 12:24 | ED ---
Complex/Multi-Sys Presentation - HPI Summary HPI Summary: This patient is a 83 year old F presenting to [facility] via EMS with a chief complaint of a fall since earlier today. Pt states her knee buckled before she fell. Pt is on oxygen at home. The patient rates the pain 2/10 in severity. Symptoms aggravated by nothing. Symptoms alleviated by nothing. Patient reports weakness, shaking, right knee pain. Patient denies any fever, chills, erythema of eyes, sore throat, CP, SOB, cough, abdominal pain, N/V, dysuria, hematuria, myalgia, edema, rash, diaphoresis or dizziness. - History Of Current Complaint Time Seen by Provider: 02/11/19 12:08 Hx Obtained From: Patient Onset/Duration: Sudden Onset, Lasting Hours - since earlier today, Resolved Timing: Hours - since earlier today Severity Currently: Mild Severity Initially: Mild Aggravating Factor(s): nothing Alleviating Factor(s): nothing Associated Signs And Symptoms: Positive: Weakness, Other - positive - fall, shaking, right knee pain. negative - chills, erythema of eyes, sore throat, hematuria, myalgia, edema, rash, diaphoresis. Negative: Dizziness, SOB, Cough, Chest Pain, Nausea, Vomiting, Abdominal Pain, Dysuria, Fever - Allergies/Home Medications Allergies/Adverse Reactions: Allergies Allergy/AdvReac Type Severity Reaction Status Date / Time Penicillins Allergy Unknown Verified 02/11/19 13:08 Reaction Details Home Medications: Home Medications Albuterol HFA INHALER* [Ventolin HFA Inhaler*] 2 puff INH Q4H PRN 02/11/19 [ History Confirmed 02/11/19] PMH/Surg Hx/FS Hx/Imm Hx Previously Healthy: No Endocrine/Hematology History: Reports: Hx Diabetes Cardiovascular History: Reports: Hx Congestive Heart Failure, Hx Hypercholesterolemia, Hx Hypertension Denies: Hx Peripheral Vascular Disease Respiratory History: Reports: Hx Chronic Bronchitis, Hx Chronic Obstructive Pulmonary Disease (COPD) GI History: Reports: Hx Gall Bladder Disease - Had Gall Bladder removed Sensory History: Reports: Hx Cataracts, Hx Contacts or Glasses, Hx Hearing Problem - TAKOTNA Denies: Hx Hearing Aid Opthamlomology History: Reports: Hx Cataracts, Hx Contacts or Glasses Neurological History: Reports: Hx Migraine Denies: Hx Seizures, Hx Transient Ischemic Attacks (TIA) - Surgical History Surgical History: Yes Surgery Procedure, Year, and Place: appendectomy at 16 years old, cataracts on both eyes, cholecysectomy - Immunization History Date of Tetanus Vaccine: unk Date of Influenza Vaccine: utd Infectious Disease History: Reports: Hx Shingles - 2015 - Family History Known Family History: Positive: Diabetes - Social History Alcohol Use: None Hx Substance Use: No Substance Use Type: Reports: None Hx Tobacco Use: Yes Smoking Status (MU): Former Smoker Review of Systems Constitutional: Other - positive - fall Negative: Fever, Chills, Skin Diaphoresis Negative: Erythema Negative: Sore Throat Negative: Chest Pain Negative: Shortness Of Breath, Cough Negative: Abdominal Pain, Vomiting, Nausea Negative: dysuria, hematuria Musculoskeletal: Other - positive - right knee pain Negative: Myalgia, Edema Negative: Rash Neurological: Other - positive - shaking. negative - dizziness Positive: Weakness All Other Systems Reviewed And Are Negative: Yes Physical Exam - Summary Physical Exam Summary: Constitutional: Well-developed, Well-nourished, Alert. (-) Distressed Skin: Warm, Dry HENT: Normocephalic; Atraumatic Eyes: Conjunctiva normal Neck: Musculoskeletal ROM normal neck. (-) JVD, (-) Stridor, (-) Tracheal deviation Cardio: Rhythm regular, rate normal, Heart sounds normal; Intact distal pulses; The pedal pulses are 2+ and symmetric. Radial pulses are 2+ and symmetric. (-) Murmur Pulmonary/Chest wall: Effort normal. (-) Respiratory distress, (-) Wheezes, (-) Rales. Crackles Abd: Soft, (-) tenderness, (-) Distension, (-) Guarding, (-) Rebound Musculoskeletal: (-) Edema Lymph: (-) Cervical adenopathy Neuro: Alert, Oriented x3 Psych: Mood and affect Normal Triage Information Reviewed: Yes Vital Signs Reviewed: Yes Procedures - Sedation Patient Received Moderate/Deep Sedation with Procedure: No Diagnostics - Laboratory Result Diagrams: 02/12/19 07:10 02/14/19 04:47 Lab Statement: Any lab studies that have been ordered have been reviewed, and results considered in the medical decision making process. - Radiology CXR Radiology Interpretation Completed By: Radiologist Summary of Radiographic Findings: IMPRESSION: NO ACTIVE CARDIOPULMONARY DISEASE IS NOTED. These findings were reviewed by Dr. Arriaga. Knee X-ray Summary of Radiographic Findings: IMPRESSION: Degenerative changes medial compartment of the right knee. These findings were reviewed by Dr. Arriaga. Complex Multi-Symp Course/Dx Course Of Treatment: This patient is a 83 year old F presenting to [facility] via EMS with a chief complaint of a fall since earlier today. Pt states her knee buckled before she fell. Pt is on oxygen at home. The patient rates the pain 2/ 10 in severity. Symptoms aggravated by nothing. Symptoms alleviated by nothing. Patient reports weakness, shaking, right knee pain. Patient denies any fever, chills, erythema of eyes, sore throat, CP, SOB, cough, abdominal pain, N/V, dysuria, hematuria, myalgia, edema, rash, diaphoresis or dizziness. Physical exam shows crackles. CXR IMPRESSION: NO ACTIVE CARDIOPULMONARY DISEASE IS NOTED. Knee X-ray IMPRESSION: Degenerative changes medial compartment of the right knee. During ED course, pt was given fluids. At 1400, Dr. Ray agrees to admit pt. - Diagnoses Provider Diagnoses: Dehydration, Acute hyponatremia - Physician Notifications Discussed Care Of Patient With: Vanda Ray Time Discussed With Above Provider: 14:00 Instructed by Provider To: Other - Dr. Ray agrees to admit pt. Discharge ED - Sign-Out/Discharge Documenting (check all that apply): Patient Departure - admit - Discharge Plan Condition: Fair Disposition: ADMITTED TO [facility] - Billing Disposition and Condition Condition: FAIR Disposition: Admitted to [facility] - Attestation Statements Document Initiated by Scribe: Yes Documenting Scribe: Bunny Ornelas Provider For Whom Alvina is Documenting (Include Credential): Dr. Mukund Arriaga MD Scribe Attestation: Bunny Meraz scribed for Dr. Mukund Arriaga MD on 02/19/19 at 2212. Scribe Documentation Reviewed: Yes Provider Attestation: The documentation as recorded by the Bunny hollins accurately reflects the service I personally performed and the decisions made by me, Dr. Mukund Arriaga MD Status of Scribe Document: Viewed
--- OUTSIDE RECORDS SUMMARY | 2019-02-11 12:51 | XMS REPORT | Continuity of Care Document ---
:1935 External Reference #:[id number] Author Name Edwardo Mcguire PA Address [address] [place] [id number] Problems Active Problems Provider Date Type 2 diabetes mellitus Mel Hess RN [place] [employer] Onset: 01/08/2008 Benign essential hypertension Linda Shelton MD Onset: 10/04/2012 Congestive heart failure Linda Shelton MD Onset: 11/22/2012 Osteoarthritis Linda Shelton MD Onset: 12/04/2012 Mixed hyperlipidemia Linda Shelton MD Onset: 12/04/2012 Obesity Linda Shelton MD Onset: 12/04/2012 Moderate chronic obstructive pulmonary Linda Shelton MD Onset: 02/03/2014 disease Essential hypertension Mel Hess RN [place] [employer] Onset: 01/28/2015 Essential hypertension Mel Hess RN [place] [employer] Onset: 02/25/2015 Type II diabetes mellitus uncontrolled Susan Alejo MD Onset: 2017 Social History Type Date Description Comments Sex Unknown Tobacco Use Start: Unknown End: Former Cigarette Smoker Quitted smoking 20 Unknown years ago, Smoking 20 pack year total ETOH Use Denies alcohol use Tobacco Use Start: Unknown End: Patient is a former smoker Unknown Smoking Status Reviewed: 01/09/19 Patient is a former smoker Allergies, Adverse Reactions, Alerts Active Allergies Reaction Severity Comments Date Penicillin 06/07/2004 Medications Active Medications SIG Qnty Indications Ordering Date Provider Levofloxacin 1 by mouth every 10tabs J01.90 Susan Alejo 01/09/2019 750mg day for 5 days MD Faith Tablets Cetirizine HCL 1 by mouth every 90tabs J01.90 Susan Alejo 01/09/2019 10mg day MD Faith Tablets Blood Glucose or any glucose 1units E11.65 Mel Hess 09/28/2018 Monitoring System monitor that that CISIDRO MS is covered by her W/Device Kit insurance for once a day testing dx e11.65 Invokana One Tab Once A E11.65 Mel Hess 09/28/2018 100mg Day C, RN MS ROGERP Tablets Proair HFA Inhale By Mouth 8.5units J20.9 Mel Hess 08/01/2018 Every 4 Hours as C, RN [place] [employer] 108(90Base) mcg/Act Needed For Aerosol Shortness Of Breath Or Cough J44.9 Famotidine one daily by mouth 30tabs K21.9 Mel Hess 06/22/2018 20mg daily for gerd C, RN MS ROGERP Tablets Lancets Micro Thin for sbgmbid testing 100units E11.40 Mel Hess 33G e11.4 dx CISIDRO MS Thin [facility]G [facility] Blood Glucose any one covered by her 1units Mel Hess 01/10/2018 Monitoring System insurance C, RN MS [employer] W/Device Kit Portable Oxygen Mini for appointments and J44.9 Mel Hess 2017 Tank travel, must use a w/c C, RN MS [place] and would like small tank Potassium Chloride one tab daily 90tabs Susan Alejo 09/14/2017 Hiral Cuevas MD 10Meq Tablets ER Furosemide Take One Tablet By 90tabs I50.20 Mel Hess 09/13/2017 40mg Mouth Every Day as C, RN MS [employer] Tablets Needed For Edema R60.9 I10 Gabapentin Take One Tablet By 120tabs M25.552 Mel Hess 06/29/2017 600mg Mouth Four Times A Day C, RN MS [employer] Tablets Amlodipine take one tablet by 90tabs I10 Mel Hess 06/26/2017 Besylate-Valsartan mouth every day C, RN MS [employer] 5-320mg Tablets Careone Unifine needles for tresiba 100units Mel Hess 05/25/2017 Pentips Pen [place] flex touch, for daily C, RN MS ILSA [id number] use 32G X 4 mm Misc Tresiba Flextouch Inject 2 Units 45units E11.65 Mel Hess 03/24/2017 Subcutaneously Everyday C, RN MS [employer] 100Unit/ML Solution And Increase Every 1-2 Pen-Inject Days For Glucose Of 120, Maximum Daily Dose = Dose 40 Untis Glipizide XL one tab twice a day 180tabs E11.9 Mel Hess 08/01/2016 5mg C RN MS [employer] Tablets ER 24HR E11.65 Oxygen 2 Liters Per Min. J41.1 Mel Hess, 06/17/2016 AT hs For COPD RN MS [employer] Metformin HCL take two tablets by 120tabs E11.9 Mel Hess, 2016 500mg mouth twice a day RN MS [employer] Tablets E11.65 Fluticasone Propionate 2 sprays in each 16gm J01.00 Susan Alejo 02/14 nostril daily MD Faith 50mcg/Act Suspension Atorvastatin Calcium Take One Tablet By 90tabs E78.2 Mel Hess, 40mg Mouth AT Bedtime RN MS [employer] Tablets Stiolto Respimat Inhale Two Puffs 16units J20.9 Mel Hess, 2015 By Mouth Every Day RN MS [employer] 2.5-2.5mcg/Act Aerosol J41.1 J44.9 Ipratropium 2 times a day via 90Vials J44.9 Mel Hess 02/25/2015 [place]/Albuterol Sulfate nebulizer as Aye RN MS [employer] needed for cough 0.5-2.5(3)mg/3ML Solution and/or wheezing Bisoprolol Fumarate take one tablet by 90tabs I10 Mel Hess 2011 10mg Tablets mouth every day Aye RN MS [employer] Aspirin Buffered 1 by mouth every Mel Hess 06/07/2004 325mg Caplets day C, RN MS [employer] History Medications Azithromycin 2 tabs day one 6tabs J20.9 Mel Hess 10/25/2018 - 250mg and 1 tab daily Aye RN MS [employer] 01/09/2019 Tablets till gone Immunizations CPT Code Status Date Vaccine Lot # [id number] Given 02/07/2018 Fluzone Highdose Age 65 And Over [id number] Preservative & Antibiotic Free 13510 Given 03/03/2017 Afluria Or Fluvirin Flu Vac Intramuscular 42382 Given 01/20/2016 Influenza Vac, Quadrivalent, Split, 0.5mL Dosage, Im Use 60562 Given 01/28/2015 Prevnar 13 Pneumococal Conjugate Vaccine [id number] 17877 Given 07/26/2013 Tdap (Adacel) Ages 7 And Above Only [id number] Q2038 Given 03/06/2013 Fluzone Trivalent Immunization [id number] Q2038 Given 01/30/2012 Fluzone Trivalent Immunization [id number] Q2038 Given 02/28/2011 Fluzone Trivalent Immunization [id number] 19093 Given 02/12/2010 Afluria Or Fluvirin Flu Vac [id number] Intramuscular 71420 Given 05/18/2009 Influenza Virus Vaccine Pandemic [id number] Formulation - [id number] 57623 Given 05/18/2009 Administration Swine Flu Vaccine [id number] 16505 Given 02/04/2009 Afluria Or Fluvirin Flu Vac [id number] Intramuscular 91133 Given 03/17/2008 Afluria Or Fluvirin Flu Vac [id number] Intramuscular 80121 Given 03/16/2007 Afluria Or Fluvirin Flu Vac [id number] Intramuscular 11774 Given 02/10/2006 Afluria Or Fluvirin Flu Vac [id number] Intramuscular 74109 Given 03/18/2005 Pneumococcal 23 Immunization Adult Or [id number] Immunosuppressed Patient 06516 Given 03/18/2005 Afluria Or Fluvirin Flu Vac [id number] 11/04/05 Intramuscular 80665 Given 03/08/2004 Afluria Or Fluvirin Flu Vac Intramuscular 93189 Given 03/11/2003 Afluria Or Fluvirin Flu Vac Intramuscular 46762 Refused 01/28/2015 Afluria Or Fluvirin Flu Vac Intramuscular Vital Signs Date Vital Result Comment 01/09/2019 9:42am Body Temperature 98.6 F Weight 256.00 lb Heart Rate 87 /min BP Systolic 172 mmHg BP Diastolic 86 mmHg Height 65 inches 5'5" BMI (Body Mass Index) 42.6 kg/m2 11/12/2018 2:25pm Right Visual Acuity Distance 20/40 Left Visual Acuity Distance 20/25 Both 20/25 Results Test Date Facility Test Result H/L Range Note Hemoglobin A1c 09/28/2018 [facility] Hemoglobin A1c 9.7 % High 4.1-5.9 Estimated Average Glucose Calc 232 mg/dL High 71-140 Comprehensive Met Panel-[facility] 09/28/2018 [facility] Sodium 143 mmol/L 135- 146 1 Potassium 6.1 mmol/L Critical high 3.5-5.2 2 Chloride# 103 mmol/L 97-110 3 Carbon Dioxide 29 mmol/L 24-34 Calcium 10.6 mg/dL High 8.5-10.5 4 Glucose 202 mg/dL High 70-105 BUN 18 mg/dL 6-26 Creatinine 0.7 mg/dL 0.5-1.4 Total Protein 7.4 g/dL 6.0-8.0 Albumin 4.2 g/dL 3.6-4.9 Globulin 3.2 g/dL 2.0-3.5 A/G Ratio 1.3 Ratio 1.0-2.2 Total Bilirubin 0.4 mg/dL 0.1-1.3 Alkaline Phosphatase 70 U/L 24-140 Alt 15 U/L 3-42 Ast 14 U/L 8-42 Anion Gap 11 mmol/L 5-15 5 Female Egfr 78 >60 6 Male Egfr 87 >60 7 Lipid 09/28/2018 [facility] Cholesterol 159 mg/dL 50-199 Triglycerides 128 mg/dL 30-200 HDL 44 mg/dL 35-85 8 Chol/ HDL Ratio 3.6 ratio Low 3.7-5.6 VLDL 26 mg/dL 2-29 LDL (Calc) 89 mg/dL 20-99 9 1 Updated reference range on new analyzer 2 Critical Result S_K:6.1 Verified by repeat analysis and Called to: [facility] at: 09/28/2018 19:37:30 by:YASH Lopez 3 Updated reference range on new analyzer 4 Updated reference range 09-05-2018 5 Updated Reference Range 6 Concerning GFR Guidelines for Americans: Normal function or mild renal disease, if clinically at risk: >/= 60 mL/min Moderately decreased: 30-59 Severely decreased: 15-29 Renal failure: <15 There is reduced accuracy above 60ml/min/1.73 m squared, but the numeric value may be clinically useful in the near 60 range 7 Concerning GFR Guidelines: Normal function or mild renal disease, if clinically at risk: >/= 60 mL/min Moderately decreased: 30-59 Severely decreased: 15-29 Renal failure: <15 There is reduced accuracy above 60ml/min/1.73 m squared, but the numeric value may be clinically useful in the near 60 range Glomerular Filtration Rate (GFR) is estimated based on the CKD-EPI equation, which assumes a steady state for creatinine as recommended by the National Kidney Disease Education Program in conjunction with the National Institutes of Health and the National Kidney Foundation. Clinical conditions in which it may be necessary to measure GFR by using clearance methods include extremes of age and body size, severe malnutrition or obesity, diseases of skeletal muscle, paraplegia or quadriplegia, vegetarian diet, rapidly changing kidney function, and calculation of the dose of potentially toxic drugs that are excreted by the kidneys. 8 Per NCEP ATP III Guidelines: Results lower than 40 mg/dL are suggestive of increased risk for coronary artery disease. Results > or = to 60 mg/dL are considered a negative risk factor. 9 Per NCEP ATP III Guidelines: Normal Population <130 Patients with medical conditions: CHD/DM Optimal: <100 Borderline high: 130-159 High: 160-189 Very high: >189 Procedures Date Code Description Status 10/12/2016 [id number] Mammogram Completed 10/02/2015 [id number] Mammogram Completed 02/03/2015 [id number] Bone Mineral Density Test Completed 01/28/2015 [id number] Bone Mineral Density Test Completed 09/24/2014 [id number] Mammogram Completed 03/10/2014 [id number] Mammogram Completed 08/05/2013 [id number] Mammogram Completed 08/02/2013 [id number] Mammogram Completed 07/31/2013 [id number] Mammogram Completed 07/05/2011 [id number] Mammogram Completed 06/29/2011 [id number] Mammogram Completed Medical Devices Description No Information Available Encounters Type Date Location Provider Dx Diagnosis Office Visit 11/12/2018 [facility] Z01.01 Encounter for exam of 1:30p [facility] eyes and vision w abnormal findings Office Visit 10/25/2018 Mel Ireland, J20.9 Acute bronchitis, 10:00a RN MS [facility] unspecified J44.9 Chronic obstructive pulmonary disease, unspecified E11.65 Type 2 diabetes mellitus with hyperglycemia Office Visit 09/28/2018 8:40a Mel Ireland, E66.01 Morbid ( severe) RN MS [place] obesity due to excess calories E11.65 Type 2 diabetes mellitus with hyperglycemia I11.0 Hypertensive heart disease with heart failure K21.9 Gastro-esophageal reflux disease without esophagitis J44.9 Chronic obstructive pulmonary disease, unspecified E78.2 Mixed hyperlipidemia I10 Essential (primary) hypertension Z68.41 Body mass index (BMI) 40.0-44.9, adult Assessments Date Code Description Provider 01/09/2019 J01.90 Acute sinusitis, unspecified Edwardo Mcguire PA 01/09/2019 E66.01 Morbid (severe) obesity due to excess Edwardo Mcguire PA calories 01/09/2019 Z68.41 Body mass index (BMI) 40.0-44.9, adult Edwardo Mcguire PA 11/12/2018 Z01.01 Encounter for examination of eyes and Susan Alejo MD vision with abnormal findings 11/12/2018 Z01.01 Encounter for exam of eyes and vision Nurses Schedule [facility] w abnormal findings 10/25/2018 J20.9 Acute bronchitis, unspecified Mel Hess RN [facility] 10/25/2018 J44.9 Chronic obstructive pulmonary disease, Mel Hess, ISIDRO [facility] unspecified 10/25/2018 E11.65 Type 2 diabetes mellitus with Mel Hess RN [facility] hyperglycemia 09/28/2018 E66.01 Morbid (severe) obesity due to excess Mel Hess RN [facility] calories 09/28/2018 E11.65 Type 2 diabetes mellitus with Mel Hess RN [facility] hyperglycemia 09/28/2018 I11.0 Hypertensive heart disease with heart Mel Hess RN [facility] failure 09/28/2018 K21.9 Gastro-esophageal reflux disease Mel Hess, ISIDRO [facility] without esophagitis 09/28/2018 J44.9 Chronic obstructive pulmonary disease, Mel Hess RN [facility] unspecified 09/28/2018 E78.2 Mixed hyperlipidemia Mel Hess RN [facility] 09/28/2018 I10 Essential (primary) hypertension Mel Hess RN [facility] 09/28/2018 Z68.41 Body mass index (BMI) 40.0-44.9, adult Mel Hess RN [facility] 09/28/2018 E11.65 Type 2 diabetes mellitus with [facility] hyperglycemia 09/28/2018 I11.0 Hypertensive heart disease with heart [facility] failure 09/28/2018 E78.2 Mixed hyperlipidemia [facility] Plan of Treatment Future Appointment(s):01/25/2019 9:40 am - Mel Hess RN [employer] at [id number]/09/2019 - Edwardo Mcguire PAJ01.90 Acute sinusitis, unspecifiedNew Medication:Levofloxacin 750 mg - 1 by mouth every day for 5 daysCetirizine HCL 10 mg - 1 by mouth every dayComments:will treat with po allergy meds and abx.E66.01 Morbid (severe) obesity due to excess ggxxqrxlO79.41 Body mass index (BMI) 40.0-44.9, adult Functional Status Description No Information Available Mental Status Description No Information Available Referrals Description No Information Available
--- OUTSIDE RECORDS SUMMARY | 2019-02-11 12:51 | XMS REPORT | Continuity of Care Document ---
:1935 External Reference #:[id number] Author Name Mel Hess RN MS [employer]OR SPECIAL EDUCATION Address [address] [place] [id number] Problems Active Problems Provider Date Type 2 diabetes mellitus Mel Hess RN MS [employer] Onset: 01/08/2008 Benign essential hypertension Linda Shelton MD Onset: 10/04/2012 Congestive heart failure Linda Shelton MD Onset: 11/22/2012 Osteoarthritis Linda Shelton MD Onset: 12/04/2012 Mixed hyperlipidemia Linda Shelton MD Onset: 12/04/2012 Obesity Linda Shelton MD Onset: 12/04/2012 Moderate chronic obstructive pulmonary Linda Shelton MD Onset: 02/03/2014 disease Essential hypertension Mel Hess RN MS [employer]UC[employer] Onset: 01/28/2015 Essential hypertension Mel Hess RN MS [employer] Onset: 02/25/2015 Type II diabetes mellitus uncontrolled Susan Alejo MD Onset: 2017 Social History Type Date Description Comments Sex Unknown Tobacco Use Start: Unknown End: Former Cigarette Smoker Quitted smoking 20 Unknown years ago, Smoking 20 pack year total ETOH Use Denies alcohol use Tobacco Use Start: Unknown End: Patient is a former smoker Unknown Smoking Status Reviewed: 01/25/19 Patient is a former smoker Allergies, Adverse Reactions, Alerts Active Allergies Reaction Severity Comments Date Penicillin 06/07/2004 Medications Active Medications SIG Qnty Indications Ordering Date Provider Azithromycin 2 tabs day one 6tabs J20.9 Mel Hess 01/25/2019 250mg and 1 tab daily ISIDRO Griffiths MS [employer] Tablets till gone Guaifenesin ER one tab every Am 20tabs J20.9 Mel Hess 01/25/2019 1200mg ISIDRO Griffiths MS [employer]UCATION Tablets ER 12HR Cetirizine HCL 1 by mouth every 90tabs J01.90 Susan Alejo 01/09/2019 10mg day MD Faith Tablets Blood Glucose or any glucose 1units E11.65 Mel Hess 09/28/2018 Monitoring System monitor that that C, ISIDRO ROSENBAUM is covered by her W/Device Kit insurance for once a day testing dx e11.65 Proair HFA Inhale By Mouth 8.5units J20.9 Mel Hess 08/01/2018 Every 4 Hours as C, RN MS ROSENBAUM 108(90Base) mcg/Act Needed For Aerosol Shortness Of Breath Or Cough J44.9 Famotidine one daily by mouth 30tabs K21.9 Mel Hess 06/22/2018 20mg daily for gerd C, RN MS ROSENBAUM Tablets Lancets Micro Thin for sbgmbid testing 100units E11.40 Mel Hess 33G e11.4 dx CISIDRO MS Thin 33G Misc Blood Glucose any one covered by her 1units Mel Hess 01/10/2018 Monitoring System insurance C, RN MS ROSENBAUM W/Device Kit Portable Oxygen Mini for appointments and J44.9 Mel Hess 2017 Tank travel, must use a w/c C, ISIDRO ROSENBAUM and would like small tank Potassium Chloride one tab daily 90tabs Susan Alejo 09/14/2017 Hiral SHANE Cuevas MD 10Meq Tablets ER Furosemide Take One Tablet By 90tabs I50.20 Mel Hess 09/13/2017 40mg Mouth Every Day as C, RN MS ROGERP Tablets Needed For Edema R60.9 I10 Gabapentin Take One Tablet By 120tabs M25.552 Mel Hess 06/29/2017 600mg Mouth Four Times A Day C, RN MS ROGERP Tablets Amlodipine take one tablet by 90tabs I10 Mel Hess 06/26/2017 Besylate-Valsartan mouth every day C, RN MS ROSENBAUM 5-320mg Tablets Careone Unifine needles for tresiba 100units Mel Hess 05/25/2017 Pentips Pen Union flex touch, for daily C, RN MS ROSENBAUM [id number] use 32G X 4 mm Misc Tresiba Flextouch Inject 2 Units 45units E11.65 Mel Hess 03/24/2017 Subcutaneously Everyday C, RN MS [employer] 100Unit/ML Solution And Increase Every 1-2 Pen-Inject Days For Glucose Of 120, Maximum Daily Dose = Dose 40 Untis Glipizide XL one tab twice a day 180tabs E11.9 Mel Hess 08/01/2016 5mg C, RN MS [employer] Tablets ER 24HR E11.65 Oxygen 2 Liters Per Min. J41.1 Mel Hess, 06/17/2016 AT hs For COPD RN MS [employer] Metformin HCL take two tablets by 120tabs E11.9 Mel Hess, 2016 500mg mouth twice a day RN MS [employer] Tablets E11.65 Fluticasone Propionate 2 sprays in each 16gm J01.00 Susan Alejo 02/14 nostril daily MD Faith 50mcg/Act Suspension Atorvastatin Calcium Take One Tablet By 90tabs E78.2 Mel Hess, 40mg Mouth AT Bedtime RN MS [employer] Tablets Stiolto Respimat Inhale Two Puffs 16units J20.9 Mel Hess, 2015 By Mouth Every Day RN MS ILSA 2.5-2.5mcg/Act Aerosol J41.1 J44.9 Ipratropium 2 times a day via 90Vials J44.9 Mel Hess 02/25/2015 Bailey/Albuterol Sulfate nebulizer as C, RN MS [employer] needed for cough 0.5-2.5(3)mg/3ML Solution and/or wheezing Bisoprolol Fumarate take one tablet by 90tabs I10 Mel Hess 2011 10mg Tablets mouth every day C, RN MS [employer] Aspirin Buffered 1 by mouth every Mel Hess 06/07/2004 325mg Caplets day C, RN MS [employer] History Medications Levofloxacin 1 by mouth 10tabs J01.90 Susan Alejo 01/09/2019 - 750mg every day for MD Faith 01/14/2019 Tablets 5 days Azithromycin 2 tabs day one 6tabs J20.9 Mel Hess 10/25/2018 - 250mg and 1 tab Aye, RN MS ROSENBAUM 01/09/2019 Tablets daily till gone Invokana One Tab Once A E11.65 Mel Hess 09/28/2018 - 100mg Tablets Day Aye, RN MS [employer] 01/25/2019 Immunizations CPT Code Status Date Vaccine Lot # [id number] Given 02/07/2018 Fluzone Highdose Age 65 And Over [id number] Preservative & Antibiotic Free 24691 Given 03/03/2017 Afluria Or Fluvirin Flu Vac Intramuscular 98471 Given 01/20/2016 Influenza Vac, Quadrivalent, Split, 0.5mL Dosage, Im Use 89119 Given 01/28/2015 Prevnar 13 Pneumococal Conjugate Vaccine [id number] 06697 Given 07/26/2013 Tdap (Adacel) Ages 7 And Above Only [id number] Q2038 Given 03/06/2013 Fluzone Trivalent Immunization [id number] Q2038 Given 01/30/2012 Fluzone Trivalent Immunization [id number] Q2038 Given 02/28/2011 Fluzone Trivalent Immunization [id number] 19882 Given 02/12/2010 Afluria Or Fluvirin Flu Vac [id number] Intramuscular 29352 Given 05/18/2009 Influenza Virus Vaccine Pandemic [id number] Formulation - [id number] 90355 Given 05/18/2009 Administration Swine Flu Vaccine [id number] 25273 Given 02/04/2009 Afluria Or Fluvirin Flu Vac [id number] Intramuscular 48152 Given 03/17/2008 Afluria Or Fluvirin Flu Vac [id number] Intramuscular 24318 Given 03/16/2007 Afluria Or Fluvirin Flu Vac [id number] Intramuscular 02367 Given 02/10/2006 Afluria Or Fluvirin Flu Vac [id number] Intramuscular 37834 Given 03/18/2005 Pneumococcal 23 Immunization Adult Or [id number] Immunosuppressed Patient 91570 Given 03/18/2005 Afluria Or Fluvirin Flu Vac [id number] 11/04/05 Intramuscular 31675 Given 03/08/2004 Afluria Or Fluvirin Flu Vac Intramuscular 16742 Given 03/11/2003 Afluria Or Fluvirin Flu Vac Intramuscular 88403 Refused 01/28/2015 Afluria Or Fluvirin Flu Vac Intramuscular Vital Signs Date Vital Result Comment 01/25/2019 9:36am Weight 256.00 lb Heart Rate 88 /min BP Systolic 161 mmHg BP Diastolic 92 mmHg Height 65 inches 5'5" BMI (Body Mass Index) 42.6 kg/m2 01/09/2019 9:42am Body Temperature 98.6 F Weight 256.00 lb Heart Rate 87 /min BP Systolic 172 mmHg BP Diastolic 86 mmHg Height 65 inches 5'5" BMI (Body Mass Index) 42.6 kg/m2 Results Test Date Facility Test Result H/L Range Note Laboratory test 01/25/2019 [facility] Hemoglobin A1c <pending> finding Hemoglobin A1c 09/28/2018 [facility] Hemoglobin A1c 9.7 % High 4.1-5.9 Estimated Average Glucose Calc 232 mg/dL High 71-140 Comprehensive Met Panel-[facility] 09/28/2018 [facility] Sodium 143 mmol/L 135- 146 1 Potassium [...] Male Egfr 87 >60 7 Lipid 09/28/2018 [facility] Cholesterol 159 mg/dL 50-199 Triglycerides 128 mg/dL 30-200 HDL 44 mg/dL 35-85 8 Chol/ HDL Ratio 3.6 ratio Low 3.7-5.6 VLDL 26 mg/dL 2-29 LDL (Calc) 89 mg/dL 20-99 9 1 Updated reference range on new analyzer 2 Critical Result S_K:6.1 Verified by repeat analysis and Called to: Aye ROGERP at: 09/28/2018 19:37:30 by:YASH A 3 Updated reference range on new analyzer [...] >189 Procedures Date Code Description Status 10/12/2016 [id number] Mammogram Completed 10/02/2015 [id number] Mammogram Completed 02/03/2015 [id number] Bone Mineral Density Test Completed 01/28/2015 [id number] Bone Mineral Density Test Completed 09/24/2014 [id number] Mammogram Completed 03/10/2014 [id number] Mammogram Completed 08/05/2013 [id number] Mammogram Completed 08/02/2013 [id number] Mammogram Completed 07/31/2013 [id number] Mammogram Completed 07/05/2011 [id number] Mammogram Completed 06/29/2011 [id number] Mammogram Completed Medical Devices Description No Information Available Encounters Type Date Location Provider Dx Diagnosis Office Visit 01/09/2019 Edwardo Gonzales PA J01.90 Acute sinusitis, 9:40a unspecified E66.01 Morbid (severe) obesity due to excess calories Z68.41 Body mass index (BMI) 40.0-44.9, adult Office Visit 11/12/2018 1:30p [facility] Schedule Z01.01 Encounter for exam of [facility] eyes and vision w abnormal findings Office Visit 10/25/2018 10:00a Mel Ireland, J20.9 Acute bronchitis, RN [facility] unspecified J44.9 Chronic obstructive pulmonary disease, unspecified E11.65 Type 2 diabetes mellitus with hyperglycemia Office Visit 09/28/2018 8:40a Mel Ireland, E66.01 Morbid ( severe) RN [facility] obesity due to excess calories E11.65 Type 2 diabetes mellitus with hyperglycemia I11.0 Hypertensive heart disease with heart failure K21.9 Gastro-esophageal reflux disease without esophagitis J44.9 Chronic obstructive pulmonary disease, unspecified E78.2 Mixed hyperlipidemia I10 Essential (primary) hypertension Z68.41 Body mass index (BMI) 40.0-44.9, adult Assessments Date Code Description Provider 01/25/2019 E66.01 Morbid (severe) obesity due to excess Mel Hess RN [facility] calories 01/25/2019 J44.9 Chronic obstructive pulmonary disease, Mel Hess, ISIDRO [facility] unspecified 01/25/2019 J20.9 Acute bronchitis, unspecified Mel Hess, ISIDRO [facility] 01/25/2019 I10 Essential (primary) hypertension Mel Hess, SIIDRO [facility] 01/25/2019 E78.2 Mixed hyperlipidemia Mel Hess, RN [facility] 01/25/2019 E11.65 Type 2 diabetes mellitus with Mel Hess, ISIDRO [facility] hyperglycemia 01/25/2019 Z68.41 Body mass index (BMI) 40.0-44.9, adult Mel Hess, ISIDRO [facility] 01/09/2019 J01.90 Acute sinusitis, unspecified Edwardo Mcguire [...] unspecified Mel Hess RN [facility] 10/25/2018 J44.9 Chronic obstructive pulmonary disease, Mel Hess, ISIDRO [facility] unspecified 10/25/2018 E11.65 Type 2 diabetes mellitus with Mel Hess RN [facility] hyperglycemia 09/28/2018 E66.01 Morbid (severe) obesity due to excess Mel Hess RN [facility] calories 09/28/2018 E11.65 Type 2 diabetes mellitus with Mel Hess RN [facility] hyperglycemia 09/28/2018 I11.0 Hypertensive heart disease with heart Mel Hess RN [facility] failure 09/28/2018 K21.9 Gastro-esophageal reflux disease Mel Hess RN [facility] without esophagitis 09/28/2018 J44.9 Chronic obstructive pulmonary disease, Mel Hess, ISIDRO [facility] unspecified 09/28/2018 E78.2 Mixed hyperlipidemia Mel Hess RN [facility] 09/28/2018 I10 Essential (primary) hypertension Mel Hess RN [facility] 09/28/2018 Z68.41 Body mass index (BMI) 40.0-44.9, adult Mel Hess RN [facility] 09/28/2018 E11.65 Type 2 diabetes mellitus with [facility] hyperglycemia 09/28/2018 I11.0 Hypertensive heart disease with heart [facility] failure 09/28/2018 E78.2 Mixed hyperlipidemia [facility] Plan of Treatment 01/25/2019 - Mel Hess RN MS FNPE66.01 Morbid (severe) obesity due to excess caloriesFollow up:April PRINT CVSJ44.9 Chronic obstructive pulmonary disease, govnzzhjigxK19.9 Acute bronchitis, unspecifiedNew Medication: Azithromycin 250 mg - 2 tabs day one and 1 tab daily till goneGuaifenesin ER 1200 mg - one tab every AmMiscellaneous:HOLD THE STILIOTO AND THE PRO AIR AND TRY TO USE THE NEBUIZER , DONT DO OVER 3-5 MIN EACH TIME ABOUTEVERY 4-6 HOURS NEEDED FOR [id number] Essential (primary) xeblbpowapldL43.2 Mixed pxcvpdfqogicvgD09.65 Type 2 diabetes mellitus with ysfbslgvtpotdE94.41 Body mass index (BMI) 40.0-44.9, adult Functional Status Description No Information Available Mental Status Description No Information Available Referrals Description No Information Available
[2019-02-11 12:58] LABS: Hematocrit 42 % (35-47); Hemoglobin 14.4 g/dL (12.0-16.0); Mean Corpuscular HGB Conc 34 g/dL (31-36); Mean Corpuscular Hemoglobin 31 pg (27-31); Mean Corpuscular Volume 89 fL (80-97); Mean Platelet Volume 7.8 fL (7.4-10.4); Platelet Count 241 10^3/uL (150-450); Red Blood Count 4.71 10^6 /uL (3.70-4.87); Red Cell Distribution Width 15 % (10-15); White Blood Count 10.9 10^3/uL (3.5-10.8)
[2019-02-11 13:15] LABS: Albumin/Globulin Ratio 1.4 (1-3); Calcium 9.9 mg/dL (8.6-10.3); EGFR African American 54.1 (>60); EGFR Non-African American 44.7 (>60); Globulin 2.8 g/dL (2-4); Total Bilirubin 0.7 mg/dL (0.2-1.0); Total Protein 6.8 g/dL (6.4-8.9)
[2019-02-11 13:16] LABS: Potassium 5.8 mmol/L (3.5-5.0)
[2019-02-11 13:17] LABS: Troponin I 0.01 ng/mL (<0.04)
[2019-02-11] MEDS ORDERED: NS 0.9% 250 ML* 250 ML IV ONE (13:25)
[2019-02-11 13:35] LABS: ABS Basophils 0.1 10^3/ul (0-0.2); ABS Eosinophils 0.1 10^3/ul (0-0.6); ABS Lymphocytes 0.5 10^3/ul (1.0-4.8); ABS Monocytes 0.5 10^3/ul (0-0.8); ABS Neutrophils 9.8 10^3/ul (1.5-7.7); Eosinophil % 0.8 %; Lymphocyte % 4.9 %; Nucleated Red Blood Cells % 0.1
[2019-02-11] MEDS ORDERED: Albuterol HFA INHALER* 8 gm MDI INH PRN (15:16)
[2019-02-11] MEDS ORDERED: Acetaminophen TAB* 325 MG PO PRN (15:16)
[2019-02-11] MEDS ORDERED: Dextrose 50% VIAL 50 ml IV PUSH PRN (15:22)
[2019-02-11] MEDS ORDERED: NS 0.9% 1000 ML** 1,000 ML IV SCH (15:30)
[2019-02-11] MEDS: Insulin LISPRO* 1 UNITS UNIT SUBCUT SCH ×2 (18:12→22:47)
[2019-02-11 18:47] LABS: Calcium 9.7 mg/dL (8.6-10.3); EGFR African American 58.1 (>60); EGFR Non-African American 48.1 (>60)
[2019-02-11 19:10] LABS: Potassium 5.4 mmol/L (3.5-5.0)
[2019-02-11] MEDS ORDERED: Patiromer POWDER* 8.4 GM PAK PO ONE (20:00)
--- NOTE | 2019-02-11 20:46 | HP ---
CC: Mel Hess NP; Dr. Nathaniel Timmons * HISTORY AND PHYSICAL: DATE OF ADMISSION: 02/11/19 TIME OF EVALUATION: 2:20 p.m. PRIMARY CARE PROVIDER: Mel Hess NP STRIP MACHINE OPERATOR: Dr. Nathaniel Timmons. CHIEF COMPLAINT: "I'm weak." HISTORY OF PRESENT ILLNESS: Ms. Salazar is an 83-year-old female with a past medical history of hyperlipidemia; hypertension; type 2 diabetes; COPD, on oxygen 2 L at home; diastolic congestive heart failure; recent admission for atrial fibrillation with rapid ventricular rate, COPD exacerbation and diastolic congestive heart failure exacerbation, who presents to the emergency room after sustaining a fall at home with complaints of weakness. The patient was admitted to [facility] from 01/27/19 to 01/31/19. At that time, she had acute on chronic respiratory failure with hypoxia secondary to acute diastolic CHF exacerbation, atrial fibrillation with rapid ventricular rate, and COPD exacerbation. She had many medication changes during that admission including addition of valsartan, spironolactone, Multaq, apixaban, and increase on her furosemide dose from 20 to 40 mg p.o. daily. At the time of discharge, the patient was feeling well, her oxygen requirements had improved, and she felt that she could manage at home. The patient states that she went home and her breathing has improved, but she has had progressive weakness. She states that her granddaughter now is managing her diet and she is on a low-salt diet and they have been working to get her diabetes under control too. She states that earlier today she tried to get up with her walker and she felt her knees are buckling and she fell on her knees. She denies chest pain, palpitations, shortness of breath, nausea, vomiting, or urinary complaints. PAST MEDICAL HISTORY: 1. Chronic respiratory failure, on oxygen at home, 2 to 3 L per minute. 2. COPD. 3. Diastolic congestive heart failure. 4. Atrial fibrillation with rapid ventricular rate, now back in sinus rhythm. 5. Hyperlipidemia. 6. Hypertension. 7. Type 2 diabetes. PAST SURGICAL HISTORY: 1. Status post cataract extraction. 2. Status post cholecystectomy. 3. Status post appendectomy. MEDICATION LIST: 1. Acetaminophen 650 mg p.o. q.6 hours p.r.n. pain. 2. Albuterol HFA 2 puffs inhale q.4 hours p.r.n. shortness of breath. 3. Apixaban 5 mg p.o. b.i.d. 4. Atorvastatin 40 mg p.o. at bedtime. 5. Bisoprolol 10 mg p.o. at bedtime. 6. Cholecalciferol 2000 units p.o. daily. 7. Multaq 400 mg p.o. b.i.d. 8. Famotidine 20 mg p.o. daily. 9. Furosemide 40 mg p.o. daily. 10. Gabapentin 600 mg p.o. t.i.d. 11. Glipizide 5 mg p.o. b.i.d. 12. Insulin degludec 20 units subcutaneously daily. 13. Magnesium oxide 400 mg p.o. daily. 14. Metformin 1000 mg p.o. b.i.d. 15. Prednisone taper, the patient is down to 10 mg p.o. daily for 3 more days. 16. Aldactone 25 mg p.o. daily. 17. Stiolto Respimat 2 puffs inhaled daily. 18. Valsartan 160 mg p.o. daily. ALLERGIES: To PENICILLIN. FAMILY HISTORY: Three sisters with COPD. Mother of complications of diabetes. Father in his 80s, but she does not know the cause. SOCIAL HISTORY: She is retired from the [employer] for [employer]. She is , has 3 children. She quit smoking at age 46. No history of alcohol or drug use. Surrogate decision maker is her son, Miles Salazar, phone number is [phone]. REVIEW OF SYSTEMS: A 14-point review of systems was performed and all the pertinent negative and positive findings are in the HPI. PHYSICAL EXAMINATION GENERAL: The patient is a pleasant, elderly lady, lying in the ED stretcher, in no acute distress. VITAL SIGNS: Temperature 98.1, heart rate is 80, respiratory rate is 14, oxygen saturation is 95% on 4 L nasal cannula, blood pressure is 106/57. HEENT: Pupils are equal. Dry mucous membranes. CHEST: Breath sounds present bilaterally, diminished, with no added sounds. CVS: Normal S1, S2. Regular rate and rhythm. ABDOMEN: Obese, soft. Bowel sounds are present. EXTREMITIES: Lower extremities are puffy, but there is no pitting edema. Her edema is much improved when compared to her prior admission. NEURO: She is alert and oriented x3. Able to move all 4 extremities. DIAGNOSTIC STUDIES/LAB DATA: The patient had a CBC that showed a WBC of 10.9, hemoglobin of 14.4, hematocrit of 42, platelets of 241 with 89% neutrophils. Chemistry showed a sodium of 120, potassium 5.8, chloride 95, bicarb of 26, BUN of 29, creatinine of 1.16, glucose of 299, lactic acid is 3.3, calcium is 9.9. LFTs are normal. Troponin of 0.01. BNP is 77. EKG done on 02/11/19 at 2:23 p.m. showed sinus rhythm at 79 beats per minute with no acute ischemic changes. Her T-waves are little taller than what they were in January. Chest x-ray shows no active cardiopulmonary disease. Knee x-ray showed degenerative changes in the medial compartment of the right knee, but there is no report of fracture. ASSESSMENT AND PLAN: Ms. Salazar is an 83-year-old female with a past medical history of chronic respiratory failure with hypoxia, diastolic congestive heart failure, atrial fibrillation with rapid ventricular response, chronic obstructive pulmonary disease, hyperlipidemia, hypertension, type 2 diabetes, morbid obesity, who presents to the emergency room after a fall today, found to have acute kidney injury and dehydration. 1. Acute kidney injury/dehydration. I believe the patient is over diuresed at this time with hyponatremia, hyperkalemia and worsening of her creatinine. Although she had improvement of her shortness of breath and resolution of lower extremity edema, she has laboratory changes and symptoms compatible with dehydration. At this time, I am going to hold her diuretics and give her gentle IV hydration and monitor her fluid status. 2. Diastolic congestive heart failure. It is stable at this time, but will need close monitoring. 3. Atrial fibrillation. The patient is in normal sinus rhythm. We will continue apixaban and Multaq. 4. Hyperkalemia in the setting of dehydration. The patient will receive IV fluids and I am going to monitor her potassium. I do not think she requires patiromer at this time, but if her potassium remains elevated, we may need to give her patiromer and she already received insulin due to her hyperglycemia. 5. Lactic acidosis. The patient has no signs of infection and I do not think that she is septic. I believe her lactic acid elevation is secondary to dehydration and metformin use. We will continue IV fluids and trend her lactic acidosis. 6. Type 2 diabetes. Chronically uncontrolled with last hemoglobin A1c of 9.5 on her prior admission. I am going to give her Lantus and lispro sliding scale. She is almost done with her prednisone taper and I believe this will help with hyperglycemia management. 7. Chronic obstructive pulmonary disease, stable at this time. The patient recently completed a course of antibiotics. We will continue her prednisone taper and bronchodilators. 8. Deconditioning. The patient will be seen in consultation by Physical and Occupational Therapy and the plan is for possible assisted facility placement for subacute rehab. The family is interested in facilities in [facility]. 9. DVT prophylaxis: The patient has a score of 4 on the DVT Prophylaxis Risk Assessment Guide and she will be continued on apixaban. 10. Code status was discussed with the patient and she wishes to be a do not resuscitate as documented on her MOLST. The patient's grandson and granddaughter were updated at bedside. TIME SPENT: Approximately 60 minutes was spent with the patient's interview, medical records review, physical examination to complete this admission, more than half of this time was spent [id number] with the patient and coordination of care. [id number]/[facility] #: [id number] JESUS
[2019-02-11] MEDS ORDERED: Bisoprolol TAB* 5 MG PO SCH (21:00)
[2019-02-11] MEDS: Apixaban* 5 MG TAB PO SCH (22:48)
[2019-02-11] MEDS: Atorvastatin* 40 MG TAB PO SCH (22:48)
[2019-02-11] MEDS: Dronedarone TAB* 400 MG PO SCH (22:48)
[2019-02-11] MEDS: Gabapentin CAP(*) 300 MG PO SCH (22:49)
[2019-02-11] MEDS: Bisoprolol TAB* 5 MG PO SCH (22:49)
[2019-02-12 07:47] LABS: Hematocrit 41 % (35-47); Hemoglobin 13.6 g/dL (12.0-16.0); Mean Corpuscular HGB Conc 34 g/dL (31-36); Mean Corpuscular Hemoglobin 30 pg (27-31); Mean Corpuscular Volume 91 fL (80-97); Mean Platelet Volume 7.6 fL (7.4-10.4); Platelet Count 216 10^3/uL (150-450); Red Cell Distribution Width 15 % (10-15); White Blood Count 10.7 10^3/uL (3.5-10.8)
[2019-02-12 08:03] LABS: BUN/Creatinine Ratio 25.5 (8-20); Calcium 9.6 mg/dL (8.6-10.3); Potassium 4.8 mmol/L (3.5-5.0)
[2019-02-12] MEDS: Insulin LISPRO* 1 UNITS UNIT SUBCUT SCH ×4 (08:13→22:04)
[2019-02-12] MEDS: Apixaban* 5 MG TAB PO SCH ×2 (08:14→22:01)
[2019-02-12] MEDS: Gabapentin CAP(*) 300 MG PO SCH ×3 (08:14→22:02)
[2019-02-12] MEDS: Dronedarone TAB* 400 MG PO SCH ×2 (08:14→22:02)
[2019-02-12] MEDS: predniSONE TAB* 10 MG PO SCH (08:14)
[2019-02-12] MEDS: Famotidine TAB* 20 MG PO SCH (08:14)
[2019-02-12] MEDS: Magnesium Oxide TAB* 400 MG PO SCH (08:14)
[2019-02-12] MEDS: Cholecalciferol TAB* 1000 UNITS PO SCH (08:14)
[2019-02-12 08:38] LABS: ABS Basophils 0.1 10^3/ul (0-0.2); ABS Eosinophils 0.3 10^3/ul (0-0.6); ABS Lymphocytes 1.5 10^3/ul (1.0-4.8); ABS Neutrophils 7.8 10^3/ul (1.5-7.7); Eosinophil % 2.6 %; Lymphocyte % 14.1 %
[2019-02-12] MEDS ORDERED: Insulin GLARGINE(*) 1 UNITS UNIT SUBCUT SCH (09:00)
[2019-02-12] MEDS: Tiotropium Brom/Olodaterol MDI INH SCH (09:16)
[2019-02-12] MEDS: Furosemide TAB* 20 MG PO SCH (13:13)
--- NOTE | 2019-02-12 16:43 | PN ---
Subjective Date of Service: 02/12/19 Interval History: HOSPITALIST PROGRESS NOTE Patient seen and examined at bedside. Care reviewed and d/w Agnieszka Franklin RN. She feels "okay" today. Right knee is still bothering her, but able to bear weight. Denies dyspnea. Has moist cough unchanged from her baseline. Family History: Unchanged from Admission Social History: Unchanged from Admission Past Medical History: Unchanged from Admission Objective Active Medications: Acetaminophen (Tylenol Tab*) 650 mg PO Q6H PRN PRN Reason: FEVER/PAIN Albuterol (Ventolin Hfa Inhaler*) 2 puff INH Q4H PRN PRN Reason: SOB/WHEEZING Apixaban (Eliquis*) 5 mg PO BID [facility] Last Admin: 02/12/19 08:14 Dose: 5 mg Atorvastatin Calcium (Lipitor*) 40 mg PO 2100 [facility] Last Admin: 02/11/19 22:48 Dose: 40 mg Bisoprolol Fumarate (Zebeta Tab*) 10 mg PO BEDTIME [facility] Last Admin: 02/11/19 22:49 Dose: 10 mg Cholecalciferol (Vitamin D Tab*) 2,000 units PO DAILY [facility] Last Admin: 02/12/19 08:14 Dose: 2,000 units Dextrose (Dextrose 50% Vial 50 Ml*) 25 ml IV PUSH .FOR FS < 60 - SS PRN PRN Reason: FS < 60 Dronedarone (Multaq Tab*) 400 mg PO BID [facility] Last Admin: 02/12/19 08:14 Dose: 400 mg Famotidine (Pepcid Tab*) 20 mg PO DAILY [facility] Last Admin: 02/12/19 08:14 Dose: 20 mg Furosemide (Lasix Tab*) 20 mg PO DAILY [facility] Last Admin: 02/12/19 13:13 Dose: 20 mg Gabapentin (Neurontin Cap(*)) 600 mg PO TID [facility] Last Admin: 02/12/19 13:13 Dose: 600 mg Insulin Glargine (Lantus(*)) 16 units SUBCUT DAILY [facility] Last Admin: 02/12/19 08:13 Dose: 16 units Insulin Human Lispro (Humalog*) 0 units SUBCUT ACHS [facility]; Protocol Last Admin: 02/12/19 11:47 Dose: 3 units Magnesium Oxide (Magox 400 Tab*) 400 mg PO DAILY [facility] Last Admin: 02/12/19 08:14 Dose: 400 mg Prednisone (Deltasone Tab*) 10 mg PO DAILY [facility] Last Admin: 02/12/19 08:14 Dose: 10 mg Tiotropium [place]/Olodaterol (Stiolto Respimat Inh [place] (60 Puff)) 2 puff INH DAILY [facility] Last Admin: 02/12/19 09:16 Dose: 2 puff Vital Signs - 8 hr 02/12/19 02/12/19 02/12/19 09:17 11:03 11:15 Temperature 97.2 F Pulse Rate 77 65 Respiratory 16 18 16 Rate Blood Pressure 102/45 (mmHg) O2 Sat by Pulse 94 94 Oximetry 02/12/19 02/12/19 02/12/19 13:13 15:15 15:55 Temperature 97.7 F Pulse Rate 78 112 Respiratory 18 22 Rate Blood Pressure 103/47 114/57 (mmHg) O2 Sat by Pulse 93 Oximetry Oxygen Devices in Use Now: Nasal Cannula - 4 liters Appearance: Pleasant elderly lady sitting up in bed in NAD Eyes: No Scleral Icterus Ears/Nose/Mouth/Throat: Mucous Membranes Moist Neck: Trachea Midline Respiratory: Symmetrical Chest Expansion and Respiratory Effort, - - BS+ bilaterally diminished with no added sounds Cardiovascular: RRR - Normal S1 and S2 Abdominal: NL Sounds; No Tenderness; No Distention Extremities: No Edema Neurological: Alert and Oriented x 3, NL Muscle Strength and Tone Result Diagrams: 02/12/19 07:10 02/12/19 07:10 Assess/Plan/Problems-Billing Assessment: Mrs Salazar is an 83 yo F with PMH of COPD on home O2 2 liters, HLD, HTN, type 2 DM, diastolic CHF, morbid obesity with BMI 44, recent admission with new- onset atrial fibrillation, diastolic heart failure exacerbation, and COPD exacerbation; returns to ED with weakness, fall at home, found to have DAVE and electrolyte imbalances secondary to over diuresis. - Patient Problems (1) DAVE (acute kidney injury) Comment: - Secondary to mild overdiuresis. - Responded well to mild IVF. - Creatinine back to baseline. - Resume lower dose Furosemide and monitor. (2) Hyponatremia Comment: - Secondary to the above and very strict diet after discharge. - Improving. (3) Hyperkalemia Comment: - Resolved. - Secondary to dehydration, spironolactone, and Valsartan. - Continue to monitor. (4) Afib Comment: - Remains in NSR. - Continue Multaq and Apixaban. (5) Right knee pain Comment: - Xray negative for fracture. - Continue to monitor. If pain persists, will consider further imaging. (6) Type 2 diabetes mellitus Comment: - A1c is 9.5. - Increase Lantus to 15 units BID and continue Lispro SS. (7) Physical deconditioning Comment: - PT/OT consults - plan for [facility]. (8) DVT prophylaxis Comment: - Apixaban. (9) Full code status Comment: Status and Disposition: Inpatient. Plan for [facility].
[2019-02-12] MEDS: Atorvastatin* 40 MG TAB PO SCH (22:01)
[2019-02-12] MEDS: Bisoprolol TAB* 5 MG PO SCH (22:02)
[2019-02-12] MEDS: Insulin GLARGINE(*) 1 UNITS UNIT SUBCUT SCH (22:04)
[2019-02-13 07:17] LABS: BUN/Creatinine Ratio 29.1 (8-20); Calcium 9.4 mg/dL (8.6-10.3); EGFR African American 62.1 (>60); EGFR Non-African American 51.3 (>60); Potassium 4.7 mmol/L (3.5-5.0)
[2019-02-13] MEDS: Tiotropium Brom/Olodaterol MDI INH SCH (07:30)
[2019-02-13] MEDS: Cholecalciferol TAB* 1000 UNITS PO SCH (08:52)
[2019-02-13] MEDS: predniSONE TAB* 10 MG PO SCH (08:52)
[2019-02-13] MEDS: Apixaban* 5 MG TAB PO SCH ×2 (08:53→21:44)
[2019-02-13] MEDS: Gabapentin CAP(*) 300 MG PO SCH ×3 (08:53→21:46)
[2019-02-13] MEDS: Magnesium Oxide TAB* 400 MG PO SCH (08:53)
[2019-02-13] MEDS: Furosemide TAB* 20 MG PO SCH (08:54)
[2019-02-13] MEDS: Dronedarone TAB* 400 MG PO SCH ×2 (08:54→21:46)
[2019-02-13] MEDS: Famotidine TAB* 20 MG PO SCH (08:54)
[2019-02-13] MEDS: Insulin GLARGINE(*) 1 UNITS UNIT SUBCUT SCH ×2 (08:56→21:46)
[2019-02-13] MEDS: Insulin LISPRO* 1 UNITS UNIT SUBCUT SCH ×4 (08:57→21:47)
--- NOTE | 2019-02-13 13:34 | PN ---
Subjective Date of Service: 02/13/19 Interval History: HOSPITALIST PROGRESS NOTE Patient seen and examined at bedside. Care reviewed and d/w Catalina Marcus RN. She feels well today, in good spirits. Breathing is at baseline, denies CP or palpitations. Knee pain is controlled. Family History: Unchanged from Admission Social History: Unchanged from Admission Past Medical History: Unchanged from Admission Objective Active Medications: Acetaminophen (Tylenol Tab*) 650 mg PO Q6H PRN PRN Reason: FEVER/PAIN Albuterol (Ventolin Hfa Inhaler*) 2 puff INH Q4H PRN PRN Reason: SOB/WHEEZING Apixaban (Eliquis*) 5 mg PO BID [facility] Last Admin: 02/13/19 08:53 Dose: 5 mg Atorvastatin Calcium (Lipitor*) 40 mg PO 2100 [facility] Last Admin: 02/12/19 22:01 Dose: 40 mg Bisoprolol Fumarate (Zebeta Tab*) 10 mg PO BEDTIME [facility] Last Admin: 02/12/19 22:02 Dose: Not Given Cholecalciferol (Vitamin D Tab*) 2,000 units PO DAILY [facility] Last Admin: 02/13/19 08:52 Dose: 2,000 units Dextrose (Dextrose 50% Vial 50 Ml*) 25 ml IV PUSH .FOR FS < 60 - SS PRN PRN Reason: FS < 60 Dronedarone (Multaq Tab*) 400 mg PO BID [facility] Last Admin: 02/13/19 08:54 Dose: 400 mg Famotidine (Pepcid Tab*) 20 mg PO DAILY [facility] Last Admin: 02/13/19 08:54 Dose: 20 mg Furosemide (Lasix Tab*) 20 mg PO DAILY [facility] Last Admin: 02/13/19 08:54 Dose: 20 mg Gabapentin (Neurontin Cap(*)) 600 mg PO TID [facility] Last Admin: 02/13/19 08:53 Dose: 600 mg Insulin Glargine (Lantus(*)) 15 units SUBCUT BID [facility] Last Admin: 02/13/19 08:56 Dose: 15 units Insulin Human Lispro (Humalog*) 0 units SUBCUT ACHS [facility]; Protocol Last Admin: 02/13/19 12:18 Dose: 6 units Magnesium Oxide (Magox 400 Tab*) 400 mg PO DAILY [facility] Last Admin: 02/13/19 08:53 Dose: 400 mg Prednisone (Deltasone Tab*) 10 mg PO DAILY [facility] Last Admin: 02/13/19 08:52 Dose: 10 mg Tiotropium [place]/Olodaterol (Stiolto Respimat Inh [place] (60 Puff)) 2 puff INH DAILY [facility] Last Admin: 02/13/19 07:30 Dose: 2 puff Vital Signs - 8 hr 02/13/19 02/13/19 02/13/19 07:30 07:57 08:00 Temperature 97.2 F Pulse Rate 65 67 Respiratory 16 20 20 Rate Blood Pressure 110/60 (mmHg) O2 Sat by Pulse 97 97 Oximetry 02/13/19 02/13/19 02/13/19 08:53 08:56 12:00 Temperature 97.7 F 97.7 F Pulse Rate 66 65 Respiratory 20 18 18 Rate Blood Pressure 125/55 110/60 (mmHg) O2 Sat by Pulse 96 97 Oximetry Oxygen Devices in Use Now: Nasal Cannula Appearance: Pleasant elderly lady sitting up in a chair in NAD. Eyes: No Scleral Icterus Ears/Nose/Mouth/Throat: Mucous Membranes Moist Neck: Trachea Midline Respiratory: Symmetrical Chest Expansion and Respiratory Effort, Clear to Auscultation Cardiovascular: RRR - Normal S1 and S2 Abdominal: NL Sounds; No Tenderness; No Distention Extremities: No Edema Neurological: Alert and Oriented x 3, NL Muscle Strength and Tone Result Diagrams: 02/12/19 07:10 02/13/19 06:23 Assess/Plan/Problems-Billing Assessment: Mrs Salazar is an 83 yo F with PMH of COPD on home O2 2 liters, HLD, HTN, type 2 DM, diastolic CHF, morbid obesity with BMI 44, recent admission with new- onset atrial fibrillation, diastolic heart failure exacerbation, and COPD exacerbation; returns to ED with weakness, fall at home, found to have DAVE and electrolyte imbalances secondary to over diuresis. - Patient Problems (1) DAVE (acute kidney injury) Comment: - Secondary to mild overdiuresis. - Responded well to mild IVF. - Creatinine back to baseline. - Continue Furosemide 20mg and monitor. (2) Hyponatremia Comment: - Secondary to the above and very strict diet after discharge. - Improving. (3) Hyperkalemia Comment: - Resolved. - Secondary to dehydration, spironolactone, and Valsartan. - Continue to monitor. (4) Diastolic CHF Comment: - Stable. - Valsartan and Spironolactone on hold for now. May be able to resume it as outpatient with close f/u of renal function and electrolytes. (5) Afib Comment: - Remains in NSR. - Continue Multaq and Apixaban. (6) Right knee pain Comment: - Xray negative for fracture. Pain is improved. (7) Type 2 diabetes mellitus Comment: - A1c is 9.5. - Continue Lantus to 15 units BID and Lispro SS. - She completed her prednisone taper, so would expect glucose to trend down off steroids. (8) Physical deconditioning Comment: - PT/OT consults - plan for [facility]. (9) DVT prophylaxis Comment: - Apixaban. (10) Full code status Comment: Status and Disposition: Inpatient. Anticipate d/c to [facility] in AM.
[2019-02-13] MEDS: Atorvastatin* 40 MG TAB PO SCH (21:44)
[2019-02-13] MEDS: Bisoprolol TAB* 5 MG PO SCH (21:45)
[2019-02-14 05:32] LABS: BUN/Creatinine Ratio 29.3 (8-20); Calcium 9.2 mg/dL (8.6-10.3); EGFR African American 70.7 (>60); EGFR Non-African American 58.4 (>60); Potassium 4.7 mmol/L (3.5-5.0)
[2019-02-14] MEDS: Tiotropium Brom/Olodaterol MDI INH SCH (07:36)
[2019-02-14] MEDS: Insulin LISPRO* 1 UNITS UNIT SUBCUT SCH ×2 (07:58→12:41)
[2019-02-14] MEDS: Apixaban* 5 MG TAB PO SCH (09:23)
[2019-02-14] MEDS: Cholecalciferol TAB* 1000 UNITS PO SCH (09:23)
[2019-02-14] MEDS: Dronedarone TAB* 400 MG PO SCH (09:23)
[2019-02-14] MEDS: Famotidine TAB* 20 MG PO SCH (09:24)
[2019-02-14] MEDS: Gabapentin CAP(*) 300 MG PO SCH (09:24)
[2019-02-14] MEDS: Furosemide TAB* 20 MG PO SCH (09:24)
[2019-02-14] MEDS: Insulin GLARGINE(*) 1 UNITS UNIT SUBCUT SCH (09:25)
[2019-02-14] MEDS: Magnesium Oxide TAB* 400 MG PO SCH (09:26)
--- NOTE | 2019-02-14 11:15 | DS ---
CC: Mel Hess NP; Dr. Timmons * DISCHARGE SUMMARY: DATE OF ADMISSION: 02/11/19 DATE OF DISCHARGE: 02/14/19 PRIMARY CARE PROVIDER: Mel Hess NP. ROLLER [employer]INTING SUPERVISOR: Dr. Timmons. With t he patient upon her transfer to [facility] in [place], [place]. DISCHARGE DIAGNOSES: 1. Dehydration. 2. Acute kidney injury. 3. Physical deconditioning. 4. Hyponatremia. 5. Hyperkalemia. SECONDARY DIAGNOSES: 1. Chronic obstructive pulmonary disease, on home O2. 2. Hyperlipidemia. 3. Hypertension. 4. Type 2 diabetes. 5. Diastolic congestive heart failure. 6. Morbid obesity with a body mass index of 41. 7. Paroxysmal atrial fibrillation. MEDICATION LIST: 1. Acetaminophen 650 mg p.o. q.6 hours p.r.n. pain or fever. 2. Albuterol HFA 2 puffs inhaled q.4 hours p.r.n. shortness of breath or wheezing. 3. Apixaban 5 mg p.o. b.i.d. 4. Atorvastatin 40 mg p.o. daily. 5. Bisoprolol 5 mg p.o. at bedtime. 6. Cholecalciferol 2000 units p.o. daily. 7. Multaq 400 mg p.o. b.i.d. 8. Famotidine 20 mg p.o. daily. 9. Furosemide 20 mg p.o. daily. 10. Gabapentin 600 mg p.o. t.i.d. 11. Glipizide 5 mg p.o. b.i.d. 12. Insulin degludec 20 units subcutaneously daily. 13. Insulin lispro 2 to 18 units subcutaneously a.c., h.s. as follows: Fingersticks 131 to 150, 2 units; 151 to 200, 3 units; 201 to 250, 6 units; 251 to 300, 9 units; 301 to 350, 12 units; 351 to 400, 15 units; greater than 400, 18 units and call MD. 14. Magnesium oxide 400 mg p.o. daily. 15. Metformin 1000 mg p.o. b.i.d. 16. Stiolto Respimat 2 puffs inhale daily. HOSPITAL COURSE: Mrs. Salazar is an 83-year-old female that was initially admitted to [facility] [place] [place] from 01/27/19 to 01/31/19. At that time, she had acute on chronic respiratory failure with hypoxia secondary to acute diastolic CHF exacerbation, atrial fibrillation with rapid ventricular rate and COPD exacerbation. She was seen in consultation by Cardiology (Dr. Timmons), who recommended changes to her medications including addition of valsartan, spironolactone, Multaq, apixaban, and increase on her usual furosemide dose from 20 to 40 mg p.o. daily. The patient was also being treated for COPD exacerbation with steroids and antibiotics. She went home feeling well, but at home, she started to have progressive weakness and malaise and she sustained a fall that prompted her return to the emergency room on 02/11/19. She was found to be over diuresed with acute kidney injury with a creatinine of 1.16, sodium 120, and potassium 5.8. She was admitted for further management. Initially furosemide, spironolactone, and valsartan were discontinued and the patient received gentle IV hydration. Her sodium is much improved up to 130. Her potassium has normalized as well as her creatinine. Furosemide 20 mg was resumed and that is the dosage that is going to be discharged today. Her bisoprolol dose was decreased from 10 to 5 mg and spironolactone and valsartan are still on hold. The patient was felt to have OT and PT needs and she is being discharged to the [facility] for further rehab. She is to have a BMP done on 02/18/19 and depending on her clinical condition, renal function, and electrolytes consideration could be given to starting valsartan at a low dose for her congestive heart failure. The patient's diabetes has been chronically uncontrolled with a hemoglobin A1c of 9.5 in the end of January. While in the hospital, her sugar has been better controlled with lispro sliding scale and she will be continued on glipizide, metformin, insulin degludec, and lispro sliding scale. She just completed her steroid taper for her COPD exacerbation and I believe that will help with glucose management as well. The patient remained in sinus rhythm while in the hospital and she will be continued on Multaq and apixaban. On her fall, the patient struck her right knee and she had some initial complaints of pain. Knee x-ray showed degenerative changes in the medial compartment of the right knee, but there was no report of fracture. Her pain has improved, but if it persists, further imaging may be necessary as outpatient. The patient is medically stable to be discharged home today to the [facility] for rehab. She will need outpatient followup with her primary care provider, Mel Hess, KRIS, as well as with Dr. Timmons, community life director. PHYSICAL EXAMINATION: Vital Signs: Temperature 97.6, heart rate is 75, respiratory rate is 16, oxygen saturation is 97% on 3 L nasal cannula, blood pressure is 108/48. General: The patient is a pleasant, morbidly obese, elderly lady, sitting up in bed, in no acute distress. HEENT: Pupils are equal , moist mucous membranes. CVS: Normal S1, S2. Regular rate and rhythm. Chest : Breath sounds bilaterally, diminished in the bases, but no added sounds. Abdomen is obese, soft. Bowel sounds are present. Lower extremities are puffy , but there is no pitting edema. Neuro: She is alert and oriented x3. Able to move all 4 extremities. DIET: Heart healthy consistent carb diet. ACTIVITIES: As tolerated. DISPOSITION: To the [facility]. CONDITION AT THE TIME OF DISCHARGE: Fair. STATUS WHILE IN THE HOSPITAL: Inpatient. Please keep in mind this is a summarized version of this patient's hospital stay. If you need more information, please feel free to call me at [phone] or please obtain full medical records. TIME SPENT: Approximately 50 minutes was spent on this discharge. [id number]/CPS #: [id number] JESUS
[2019-02-14 11:44] VITALS: BP 104/48
== END 2019-02-14 12:47 | DRG 683 ==
LOC: ED 12:01 → MEDTELE 14:21
PROVIDERS: ADMIT Internal Medicine; ATTEND Internal Medicine
DX: N17.9 Acute kidney failure, unspecified (principal); I50.32 Chronic diastolic (congestive) heart failure; J96.11 Chronic respiratory failure with hypoxia; E87.2 Acidosis; Z68.41 Body mass index [BMI] 40.0-44.9, adult; E87.1 Hypo-osmolality and hyponatremia; E86.0 Dehydration; W01.0XXA Fall on same level from slipping, tripping and stumbling without subsequent striking against object, initial encounter; J44.9 Chronic obstructive pulmonary disease, unspecified; E11.9 Type 2 diabetes mellitus without complications; E78.00 Pure hypercholesterolemia, unspecified; H91.90 Unspecified hearing loss, unspecified ear; G43.909 Migraine, unspecified, not intractable, without status migrainosus; M25.561 Pain in right knee; E87.5 Hyperkalemia; E66.01 Morbid (severe) obesity due to excess calories; I48.0 Paroxysmal atrial fibrillation; T50.2X5A Adverse effect of carbonic-anhydrase inhibitors, benzothiadiazides and other diuretics, initial encounter; I12.9 Hypertensive chronic kidney disease with stage 1 through stage 4 chronic kidney disease, or unspecified chronic kidney disease; Z90.49 Acquired absence of other specified parts of digestive tract; Y92.009 Unspecified place in unspecified non-institutional (private) residence as the place of occurrence of the external cause; Z88.0 Allergy status to penicillin; Z98.42 Cataract extraction status, left eye; Z98.41 Cataract extraction status, right eye; Z87.891 Personal history of nicotine dependence; Z79.01 Long term (current) use of anticoagulants; Z79.4 Long term (current) use of insulin
CPT/HCPCS: 36415; 71045; 80048; 80053; 83605; 83880; 84484; 85025; 87040; 93005; 94640; 99284; A9270-GY; G8978-GP-CL; G8979-GP-CI; G8987-GO-CK; G8988-GO-CJ; J3535; J7512

== ENCOUNTER 2021-10-23 15:57 | Inpatient (IN) ==
[2021-10-23 16:18] LABS: ABS Basophils 0.1 10^3/ul (0-0.2); ABS Eosinophils 0.1 10^3/ul (0-0.6); ABS Lymphocytes 1.2 10^3/ul (1.0-4.8); ABS Monocytes 0.5 10^3/ul (0-0.8); ABS Neutrophils 6.3 10^3/ul (1.5-7.7); Eosinophil % 0.8 %; Hematocrit 40 % (35-47); Hemoglobin 12.9 g/dL (12.0-16.0); Lymphocyte % 14.6 %; Mean Corpuscular HGB Conc 32 g/dL (31-36); Mean Corpuscular Hemoglobin 29 pg (27-31); Mean Corpuscular Volume 91 fL (80-97); Mean Platelet Volume 7.3 fL (7.4-10.4); Platelet Count 213 10^3/uL (150-450); Red Blood Count 4.39 10^6 /uL (3.70-4.87); Red Cell Distribution Width 15 % (10-15); White Blood Count 8.1 10^3/uL (3.5-10.8)
[2021-10-23 16:29] LABS: PCO2 Arterial 56 mmHg (35-45); PO2 Arterial 96 mmHg (80-100)
[2021-10-23 16:36] LABS: Activated Partial Thrombo Time 32.7 seconds (26.0-38.0); INR 1.17 (0.86-1.15)
[2021-10-23] MEDS ORDERED: Albuterol/Ipratropium NEB.SOL (2.5/0.5 MG) 3 ML NEB.SOLN INH ONE (17:02)
[2021-10-23 17:04] LABS: Albumin 3.9 g/dL (3.2-5.2); Albumin/Globulin Ratio 1.1 (1-3); C Reactive Protein 6.89 mg/L (<8.01); Calcium 9.7 mg/dL (8.6-10.3); Globulin 3.6 g/dL (2-4); Potassium 4.7 mmol/L (3.5-5.0); Total Bilirubin 0.3 mg/dL (0.2-1.0); Total Protein 7.5 g/dL (6.4-8.9); eGFR CKD-EPI 59.8 (>60)
[2021-10-23] MEDS ORDERED: cefTRIAXone 1 gm/50 mL D5W 1 GM/50 ML BAG IV ONE (17:38)
[2021-10-23 17:47] LABS: High Sensitivity Troponin 1 Hr 7 pg/mL (<15)
[2021-10-23 18:15] LABS: Magnesium 1.9 mg/dL (1.9-2.7)
[2021-10-23] MEDS ORDERED: Albuterol/Ipratropium NEB.SOL (2.5/0.5 MG) 3 ML NEB.SOLN INH PRN (18:35)
[2021-10-23] MEDS ORDERED: Albuterol HFA INHALER 8 gm MDI INH PRN (18:35)
[2021-10-23] MEDS ORDERED: Furosemide 40 mg/4 ml IV VIAL IV SLOW PU ONE (18:50)
[2021-10-23 19:48] LABS: Phosphorus 2.9 mg/dL (2.5-5.0)
[2021-10-23] MEDS ORDERED: Albuterol 2.5mg/3 ml (0.083%) NEB.SOLN INH PRN (20:15)
[2021-10-23] MEDS: DOXYcycline 100 MG in NS 0.9% 250 ml 250 ML IVPB SCH (21:07)
[2021-10-23] MEDS: Nystatin TOP POWDER 15 GM BTL TOPICAL SCH (21:13)
[2021-10-23] MEDS: methylPREDNISolone SOD SUCC 40 mg/ml 1 ml VIAL IV SCH (22:24)
[2021-10-24 04:36] LABS: ABS Lymphocytes 0.4 10^3/ul (1.0-4.8); ABS Monocytes 0.1 10^3/ul (0-0.8); ABS Neutrophils 4.7 10^3/ul (1.5-7.7); Hematocrit 35 % (35-47); Hemoglobin 11.5 g/dL (12.0-16.0); Lymphocyte % 7.9 %; Mean Corpuscular HGB Conc 33 g/dL (31-36); Mean Corpuscular Hemoglobin 29 pg (27-31); Mean Corpuscular Volume 90 fL (80-97); Mean Platelet Volume 7.6 fL (7.4-10.4); Platelet Count 207 10^3/uL (150-450); Red Blood Count 3.92 10^6 /uL (3.70-4.87); Red Cell Distribution Width 15 % (10-15); White Blood Count 5.2 10^3/uL (3.5-10.8)
[2021-10-24 05:21] LABS: Calcium 9.6 mg/dL (8.6-10.3); Magnesium 1.8 mg/dL (1.9-2.7); Phosphorus 2.5 mg/dL (2.5-5.0); Potassium 4.3 mmol/L (3.5-5.0); eGFR CKD-EPI 61.4 (>60)
[2021-10-24] MEDS: methylPREDNISolone SOD SUCC 40 mg/ml 1 ml VIAL IV SCH (05:42)
[2021-10-24] MEDS: Tiotropium Brom/Olodaterol MDI INH SCH (07:36)
[2021-10-24] MEDS ORDERED: Magnesium Sulfate IV 1GM/100ML 1 GM/100 ML BAG IV ONE (08:10)
[2021-10-24] MEDS: Multivitamins/Minerals TAB PO SCH (09:23)
[2021-10-24] MEDS: Cholecalciferol (VIT D3) 1,000 unit TAB PO SCH (09:24)
[2021-10-24] MEDS: Nystatin TOP POWDER 15 GM BTL TOPICAL SCH ×3 (09:25→21:01)
[2021-10-24] MEDS: DOXYcycline 100 MG in NS 0.9% 250 ml 250 ML IVPB SCH ×2 (09:44→21:01)
[2021-10-24] MEDS ORDERED: Dextrose 50% Syringe 50 ml 25 GM/50 ML SYRINGE IV PUSH PRN (09:54)
[2021-10-24] MEDS ORDERED: Albuterol/Ipratropium NEB.SOL (2.5/0.5 MG) 3 ML NEB.SOLN INH PRN (10:20)
[2021-10-24] MEDS ORDERED: Metoprolol Tartrate 5 mg VIAL 5 ml VIAL (1 mg/ml) IV PRN (11:11)
[2021-10-24] MEDS ORDERED: cefTRIAXone 1 gm/50 mL D5W 1 GM/50 ML BAG IV SCH (18:00)
[2021-10-25 05:04] LABS: ABS Lymphocytes 1.4 10^3/ul (1.0-4.8); ABS Monocytes 0.8 10^3/ul (0-0.8); ABS Neutrophils 6.6 10^3/ul (1.5-7.7); Eosinophil % 0.5 %; Hematocrit 35 % (35-47); Hemoglobin 11.4 g/dL (12.0-16.0); Lymphocyte % 16.3 %; Mean Corpuscular HGB Conc 33 g/dL (31-36); Mean Corpuscular Hemoglobin 30 pg (27-31); Mean Corpuscular Volume 90 fL (80-97); Mean Platelet Volume 7.4 fL (7.4-10.4); Nucleated Red Blood Cells % 0.1; Platelet Count 201 10^3/uL (150-450); Red Blood Count 3.84 10^6 /uL (3.70-4.87); Red Cell Distribution Width 15 % (10-15); White Blood Count 8.9 10^3/uL (3.5-10.8)
[2021-10-25 05:11] LABS: Calcium 9.9 mg/dL (8.6-10.3); Potassium 4.7 mmol/L (3.5-5.0); eGFR CKD-EPI 57.6 (>60)
[2021-10-25] MEDS: Multivitamins/Minerals TAB PO SCH (07:41)
[2021-10-25] MEDS: Cholecalciferol (VIT D3) 1,000 unit TAB PO SCH (07:41)
[2021-10-25] MEDS: Tiotropium Brom/Olodaterol MDI INH SCH (07:51)
[2021-10-25] MEDS: DOXYcycline 100 MG in NS 0.9% 250 ml 250 ML IVPB SCH (07:55)
[2021-10-25] MEDS ORDERED: methylPREDNISolone SOD SUCC 40 mg/ml 1 ml VIAL IV SCH (09:00)
[2021-10-25] MEDS: Nystatin TOP POWDER 15 GM BTL TOPICAL SCH (11:01)
[2021-10-25 11:27] VITALS: BP 158/73
== END 2021-10-25 12:20 | disposition home or self-care (01) | DRG 190 ==
LOC: ED 15:57 → EDHOLD 18:59 → ICU 19:44
PROVIDERS: ADMIT Internal Medicine; ATTEND Surgery Surgical Critical Care

== ENCOUNTER 2022-03-20 06:22 | Inpatient (IN) ==
[2022-03-20] MEDS ORDERED: methylPREDNISolone SOD SUCC 125 mg 2 ML VIAL IV ONE (06:38)
[2022-03-20] MEDS ORDERED: Albuterol/Ipratropium NEB.SOL (2.5/0.5 MG) 3 ML NEB.SOLN INH ONE ×2 (06:38→08:44)
[2022-03-20] MEDS ORDERED: Furosemide 40 mg/4 ml IV VIAL IV ONE ×2 (06:49→10:57)
[2022-03-20 07:08] LABS: ABS Basophils 0.1 10^3/ul (0-0.2); ABS Eosinophils 0.1 10^3/ul (0-0.6); ABS Lymphocytes 0.9 10^3/ul (1.0-4.8); ABS Monocytes 0.5 10^3/ul (0-0.8); ABS Neutrophils 6.3 10^3/ul (1.5-7.7); Eosinophil % 1.8 %; Hematocrit 34 % (35-47); Mean Corpuscular HGB Conc 32 g/dL (31-36); Mean Corpuscular Hemoglobin 29 pg (27-31); Mean Corpuscular Volume 92 fL (80-97); Mean Platelet Volume 7.2 fL (7.4-10.4); Platelet Count 246 10^3/uL (150-450); Red Blood Count 3.73 10^6 /uL (3.70-4.87); Red Cell Distribution Width 15 % (10-15); White Blood Count 7.8 10^3/uL (3.5-10.8)
[2022-03-20 07:53] LABS: Albumin 3.3 g/dL (3.2-5.2); Calcium 9.6 mg/dL (8.6-10.3); Globulin 3.3 g/dL (2-4); Potassium 4.7 mmol/L (3.5-5.0); Total Bilirubin 0.4 mg/dL (0.2-1.0); Total Protein 6.6 g/dL (6.4-8.9); eGFR CKD-EPI 59.5 (>60)
[2022-03-20] MEDS ORDERED: DOXYcycline 100 MG in NS 0.9% 250 ml 250 ML IVPB ONE (08:45)
[2022-03-20 09:45] LABS: PCO2 Arterial 61 mmHg (35-45)
[2022-03-20 09:47] LABS: PO2 Arterial 59 mmHg (80-100)
[2022-03-20] MEDS ORDERED: Ondansetron 4 mg VIAL 2 MG/ML 2 ml VIAL IV PRN (11:23)
[2022-03-20] MEDS ORDERED: Dextrose 50% Syringe 50 ml 25 GM/50 ML SYRINGE IV PUSH PRN (11:33)
[2022-03-20] MEDS ORDERED: Albuterol 2.5mg/3 ml (0.083%) NEB.SOLN INH SCH (12:00)
[2022-03-20] MEDS ORDERED: Metoprolol Tartrate 5 mg VIAL 5 ml VIAL (1 mg/ml) IV ONE ×2 (12:01→13:32)
[2022-03-20] MEDS: methylPREDNISolone SOD SUCC 40 mg/ml 1 ml VIAL IV SCH ×2 (12:42→20:51)
[2022-03-20] MEDS: Albuterol 2.5mg/3 ml (0.083%) NEB.SOLN INH SCH ×3 (12:43→20:37)
[2022-03-20 13:45] LABS: High Sensitivity Troponin 1 Hr 31 pg/mL (<15)
[2022-03-20] MEDS: Insulin GLARGINE 100 un/ml 10 ml VIAL SUBCUT SCH ×2 (18:20→21:34)
[2022-03-21] MEDS: Albuterol 2.5mg/3 ml (0.083%) NEB.SOLN INH SCH ×4 (00:29→12:23)
[2022-03-21] MEDS: methylPREDNISolone SOD SUCC 40 mg/ml 1 ml VIAL IV SCH ×3 (05:00→21:01)
[2022-03-21 05:09] LABS: ABS Lymphocytes 0.4 10^3/ul (1.0-4.8); ABS Monocytes 0.2 10^3/ul (0-0.8); ABS Neutrophils 5.1 10^3/ul (1.5-7.7); Hematocrit 34 % (35-47); Lymphocyte % 6.8 %; Mean Corpuscular HGB Conc 32 g/dL (31-36); Mean Corpuscular Hemoglobin 29 pg (27-31); Mean Corpuscular Volume 91 fL (80-97); Mean Platelet Volume 7.4 fL (7.4-10.4); Platelet Count 251 10^3/uL (150-450); Red Blood Count 3.77 10^6 /uL (3.70-4.87); Red Cell Distribution Width 15 % (10-15); White Blood Count 5.6 10^3/uL (3.5-10.8)
[2022-03-21 05:36] LABS: Calcium 9.5 mg/dL (8.6-10.3); Potassium 4.6 mmol/L (3.5-5.0)
[2022-03-21] MEDS: Furosemide 40 mg/4 ml IV VIAL IV SCH (08:44)
[2022-03-21] MEDS ORDERED: cefTRIAXone VIAL 1,000 MG in NS 0.9% 50 ML 50 ML IVPB SCH (09:00)
[2022-03-21] MEDS ORDERED: Insulin GLARGINE 100 un/ml 10 ml VIAL SUBCUT SCH (09:00)
[2022-03-21] MEDS ORDERED: Tiotropium Brom/Olodaterol MDI INH SCH (09:00)
[2022-03-21] MEDS: Cholecalciferol (VIT D3) 1,000 unit TAB PO SCH (09:37)
[2022-03-21] MEDS: cefTRIAXone 1 gm/50 mL D5W 1 GM/50 ML BAG IV SCH (10:00)
[2022-03-21] MEDS: DOXYcycline 100 MG in NS 0.9% 250 ml 250 ML IVPB SCH ×2 (11:49→21:01)
[2022-03-21] MEDS ORDERED: Albuterol 2.5mg/3 ml (0.083%) NEB.SOLN INH PRN (12:01)
[2022-03-21 13:07] LABS: PCO2 Arterial 49 mmHg (35-45); PO2 Arterial 67 mmHg (80-100)
[2022-03-21] MEDS: Albuterol/Ipratropium NEB.SOL (2.5/0.5 MG) 3 ML NEB.SOLN INH SCH ×2 (14:34→19:05)
[2022-03-21] MEDS: Insulin GLARGINE 100 un/ml 10 ml VIAL SUBCUT SCH (21:01)
[2022-03-22] MEDS: Albuterol/Ipratropium NEB.SOL (2.5/0.5 MG) 3 ML NEB.SOLN INH SCH ×4 (00:21→20:06)
[2022-03-22] MEDS: methylPREDNISolone SOD SUCC 40 mg/ml 1 ml VIAL IV SCH ×3 (02:56→13:06)
[2022-03-22] MEDS: Furosemide 40 mg/4 ml IV VIAL IV SCH (08:22)
[2022-03-22] MEDS: Insulin GLARGINE 100 un/ml 10 ml VIAL SUBCUT SCH ×2 (08:23→22:25)
[2022-03-22] MEDS: Cholecalciferol (VIT D3) 1,000 unit TAB PO SCH (08:25)
[2022-03-22] MEDS: cefTRIAXone 1 gm/50 mL D5W 1 GM/50 ML BAG IV SCH (08:31)
[2022-03-22] MEDS: DOXYcycline 100 MG in NS 0.9% 250 ml 250 ML IVPB SCH ×2 (11:42→22:56)
[2022-03-22] MEDS ORDERED: Insulin GLARGINE 100 un/ml 10 ml VIAL SUBCUT SCH ×2 (12:18→21:00)
[2022-03-23] MEDS: Albuterol/Ipratropium NEB.SOL (2.5/0.5 MG) 3 ML NEB.SOLN INH SCH ×2 (01:23→07:30)
[2022-03-23] MEDS: methylPREDNISolone SOD SUCC 40 mg/ml 1 ml VIAL IV SCH (01:27)
[2022-03-23 06:52] LABS: Hematocrit 36 % (35-47); Hemoglobin 11.4 g/dL (12.0-16.0); Mean Corpuscular HGB Conc 32 g/dL (31-36); Mean Corpuscular Hemoglobin 30 pg (27-31); Mean Corpuscular Volume 92 fL (80-97); Mean Platelet Volume 7.3 fL (7.4-10.4); Platelet Count 270 10^3/uL (150-450); Red Blood Count 3.87 10^6 /uL (3.70-4.87); Red Cell Distribution Width 15 % (10-15); White Blood Count 8.1 10^3/uL (3.5-10.8)
[2022-03-23 07:15] LABS: Calcium 9.9 mg/dL (8.6-10.3); Potassium 4.9 mmol/L (3.5-5.0); eGFR CKD-EPI 67.1 (>60)
[2022-03-23] MEDS: Insulin GLARGINE 100 un/ml 10 ml VIAL SUBCUT SCH ×2 (08:35→21:24)
[2022-03-23 08:40] LABS: ABS Lymphocytes 0.4 10^3/ul (1.0-4.8); ABS Monocytes 0.2 10^3/ul (0-0.8); ABS Neutrophils 7.6 10^3/ul (1.5-7.7); Lymphocyte % 4.4 %
[2022-03-23] MEDS ORDERED: Albuterol/Ipratropium NEB.SOL (2.5/0.5 MG) 3 ML NEB.SOLN INH PRN (09:04)
[2022-03-23] MEDS: Furosemide 40 mg/4 ml IV VIAL IV SCH (09:54)
[2022-03-23] MEDS: Cholecalciferol (VIT D3) 1,000 unit TAB PO SCH (09:55)
[2022-03-23] MEDS: cefTRIAXone 1 GM Q24H (ADVAN) IVPB SCH (09:59)
[2022-03-23] MEDS: CMCS: SitaGLIPtin 25mg TAB (NF) 25 MG TAB PO SCH (10:01)
[2022-03-23] MEDS: DOXYcycline 100 MG in NS 0.9% 250 ml 250 ML IVPB SCH ×2 (11:28→21:30)
[2022-03-23] MEDS: SPIRIVA Respimat (tiotropium) 2.5 mcg/inh Inhaler INH SCH (14:05)
[2022-03-23] MEDS: Mometasone/Formoter 200/5 MDI INH SCH ×2 (14:09→21:00)
[2022-03-24 06:59] LABS: Hematocrit 36 % (35-47); Hemoglobin 11.8 g/dL (12.0-16.0); Mean Corpuscular HGB Conc 33 g/dL (31-36); Mean Corpuscular Hemoglobin 29 pg (27-31); Mean Corpuscular Volume 90 fL (80-97); Mean Platelet Volume 7.3 fL (7.4-10.4); Platelet Count 303 10^3/uL (150-450); Red Blood Count 4.03 10^6 /uL (3.70-4.87); Red Cell Distribution Width 15 % (10-15); White Blood Count 9.2 10^3/uL (3.5-10.8)
[2022-03-24 07:01] LABS: ABS Lymphocytes 1.1 10^3/ul (1.0-4.8); ABS Monocytes 0.8 10^3/ul (0-0.8); ABS Neutrophils 7.3 10^3/ul (1.5-7.7); Eosinophil % 0.1 %; Lymphocyte % 12.3 %; Nucleated Red Blood Cells % 0.1
[2022-03-24 07:21] LABS: Calcium 9.6 mg/dL (8.6-10.3); Magnesium 1.9 mg/dL (1.9-2.7); Potassium 4.7 mmol/L (3.5-5.0); eGFR CKD-EPI 67.1 (>60)
[2022-03-24] MEDS: Insulin GLARGINE 100 un/ml 10 ml VIAL SUBCUT SCH (08:14)
[2022-03-24] MEDS: Cholecalciferol (VIT D3) 1,000 unit TAB PO SCH (08:18)
[2022-03-24] MEDS: Furosemide 40 mg/4 ml IV VIAL IV SCH (08:22)
[2022-03-24] MEDS: cefTRIAXone 1 GM Q24H (ADVAN) IVPB SCH (08:28)
[2022-03-24] MEDS: SPIRIVA Respimat (tiotropium) 2.5 mcg/inh Inhaler INH SCH (08:33)
[2022-03-24] MEDS: Mometasone/Formoter 200/5 MDI INH SCH (08:34)
[2022-03-24] MEDS: DOXYcycline 100 MG in NS 0.9% 250 ml 250 ML IVPB SCH (10:43)
[2022-03-24] MEDS: CMCS: SitaGLIPtin 25mg TAB (NF) 25 MG TAB PO SCH (11:32)
[2022-03-24 12:03] VITALS: BP 135/63
[2022-03-25] MEDS ORDERED: cefTRIAXone 1 gm/50 mL D5W 1 GM/50 ML BAG IV SCH (09:00)
== END 2022-03-24 15:40 | disposition home or self-care (01) | DRG 291 ==
LOC: ED 06:22 → EDHOLD 11:23 → SUATTDRO 11:23 → EDHOLD 03-21 09:15 → MEDTELE 03-21 14:32
PROVIDERS: ADMIT Internal Medicine; ATTEND Internal Medicine

== ENCOUNTER 2022-05-08 16:31 | Observation (INO) ==
[2022-05-08 18:13] LABS: ABS Basophils 0.1 10^3/ul (0-0.2); ABS Eosinophils 0.2 10^3/ul (0-0.6); ABS Lymphocytes 0.8 10^3/ul (1.0-4.8); ABS Monocytes 0.5 10^3/ul (0-0.8); ABS Neutrophils 6.2 10^3/ul (1.5-7.7); Eosinophil % 2.2 %; Hematocrit 35 % (35-47); Hemoglobin 11.1 g/dL (12.0-16.0); Lymphocyte % 10.7 %; Mean Corpuscular HGB Conc 31 g/dL (31-36); Mean Corpuscular Hemoglobin 28 pg (27-31); Mean Corpuscular Volume 90 fL (80-97); Mean Platelet Volume 7.7 fL (7.4-10.4); Platelet Count 235 10^3/uL (150-450); Red Blood Count 3.92 10^6 /uL (3.70-4.87); Red Cell Distribution Width 16 % (10-15); White Blood Count 7.8 10^3/uL (3.5-10.8)
[2022-05-08] MEDS ORDERED: Furosemide 40 mg/4 ml IV VIAL IV SLOW PU ONE (18:32)
[2022-05-08 18:49] LABS: Albumin 3.5 g/dL (3.2-5.2); Albumin/Globulin Ratio 1.1 (1-3); Calcium 9.3 mg/dL (8.6-10.3); Globulin 3.1 g/dL (2-4); Potassium 4.9 mmol/L (3.5-5.0); Total Bilirubin 0.3 mg/dL (0.2-1.0); Total Protein 6.6 g/dL (6.4-8.9); eGFR CKD-EPI 41.1 (>60)
[2022-05-08 19:58] LABS: High Sensitivity Troponin 1 Hr 9 pg/mL (<15)
[2022-05-08] MEDS ORDERED: Albuterol HFA INHALER 8 gm MDI INH PRN (20:37)
[2022-05-08] MEDS ORDERED: Albuterol/Ipratropium NEB.SOL (2.5/0.5 MG) 3 ML NEB.SOLN INH PRN (20:37)
[2022-05-08] MEDS ORDERED: Dextrose 50% Syringe 50 ml 25 GM/50 ML SYRINGE IV PUSH PRN (20:39)
[2022-05-08] MEDS: Insulin GLARGINE 100 un/ml 10 ml VIAL SUBCUT SCH (23:17)
[2022-05-08] MEDS: Nystatin TOP POWDER 15 GM BTL TOPICAL SCH (23:17)
[2022-05-09] MEDS ORDERED: Furosemide 40 mg/4 ml IV VIAL IV SLOW PU ONE ×3 (01:00→13:55)
[2022-05-09 07:10] LABS: Potassium 4.2 mmol/L (3.5-5.0); eGFR CKD-EPI 53.9 (>60)
[2022-05-09] MEDS ORDERED: Fluticasone NASAL SPRAY 50MCG 16 gm SPRAY BTL INTRANASAL SCH (09:00)
[2022-05-09] MEDS ORDERED: Cholecalciferol (VIT D3) 1,000 unit TAB PO SCH (09:00)
[2022-05-09] MEDS ORDERED: Tiotropium Brom/Olodaterol MDI INH SCH (09:00)
[2022-05-09] MEDS: Insulin GLARGINE 100 un/ml 10 ml VIAL SUBCUT SCH (09:23)
[2022-05-09] MEDS: Nystatin TOP POWDER 15 GM BTL TOPICAL SCH ×2 (09:37→15:14)
[2022-05-09 11:03] VITALS: BP 113/58
== END 2022-05-09 17:46 | disposition home or self-care (01) ==
LOC: ED 16:31 → EDHOLD 16:31 → SUATTDRO 20:22 → EDHOLD 21:39 → MEDTELE 21:44
PROVIDERS: ADMIT Student in an Organized Health Care Education/Training Program; ATTEND Internal Medicine

== ENCOUNTER 2022-05-28 11:26 | Inpatient (IN) ==
[2022-05-28] MEDS ORDERED: Furosemide 20 mg/2 ml IV VIAL IV ONE (11:54)
[2022-05-28] MEDS ORDERED: ceFAZolin 1 GM ADVAN 1 GM ADDV.VIAL IVPB ONE (12:00)
[2022-05-28] MEDS ORDERED: Albuterol/Ipratropium NEB.SOL (2.5/0.5 MG) 3 ML NEB.SOLN INH ONE (12:01)
[2022-05-28 12:56] LABS: ABS Basophils 0.1 10^3/ul (0-0.2); ABS Lymphocytes 0.7 10^3/ul (1.0-4.8); ABS Monocytes 0.4 10^3/ul (0-0.8); ABS Neutrophils 7.9 10^3/ul (1.5-7.7); Eosinophil % 0.5 %; Hematocrit 42 % (35-47); Hemoglobin 12.8 g/dL (12.0-16.0); Lymphocyte % 7.2 %; Mean Corpuscular HGB Conc 31 g/dL (31-36); Mean Corpuscular Hemoglobin 28 pg (27-31); Mean Corpuscular Volume 89 fL (80-97); Mean Platelet Volume 7.7 fL (7.4-10.4); Platelet Count 252 10^3/uL (150-450); Red Blood Count 4.65 10^6 /uL (3.70-4.87); Red Cell Distribution Width 15 % (10-15); White Blood Count 9.1 10^3/uL (3.5-10.8)
[2022-05-28 13:05] LABS: INR 1.22 (0.88-1.18)
[2022-05-28 13:25] LABS: Albumin 3.8 g/dL (3.2-5.2); Total Bilirubin 0.5 mg/dL (0.2-1.0)
[2022-05-28 13:31] LABS: C Reactive Protein 19.63 mg/L (<8.01); Creatinine, Serum 0.8 mg/dL (0.51-0.95); Globulin 3.9 g/dL (2-4); Total Protein 7.7 g/dL (6.4-8.9); eGFR CKD-EPI 72.2 (>60)
[2022-05-28 14:05] LABS: Calcium 10.7 mg/dL (8.6-10.3); Magnesium 2.1 mg/dL (1.9-2.7); Potassium 4.7 mmol/L (3.5-5.0)
[2022-05-28 16:02] LABS: High Sensitivity Troponin 1 Hr 9 pg/mL (<15)
[2022-05-28] MEDS ORDERED: Albuterol HFA INHALER 8 gm MDI INH PRN (16:23)
[2022-05-28] MEDS ORDERED: Albuterol/Ipratropium NEB.SOL (2.5/0.5 MG) 3 ML NEB.SOLN INH PRN (16:23)
[2022-05-28] MEDS ORDERED: Dextrose 50% Syringe 50 ml 25 GM/50 ML SYRINGE IV PUSH PRN (16:25)
[2022-05-28] MEDS ORDERED: Magnesium Hydroxide LIQ 30 ML UDC PO PRN (17:08)
[2022-05-28 19:40] LABS: Urine Appearance Clear; Urine Bilirubin Negative (Negative); Urine Blood Negative (Negative); Urine Color Straw; Urine Glucose 3+(>=500 mg/dL) (Negative); Urine Ketones Negative (Negative); Urine Nitrite Negative (Negative); Urine Protein Negative (Negative); Urine Specific Gravity 1.009 (1.002-1.030); Urine Urobilinogen Negative (Negative)
[2022-05-28 19:47] LABS: Urine Bacteria 1+ (Absent); Urine Red Blood Cell Trace(0-2/hpf) (Absent); Urine White Blood Cell 2+(11-20/hpf) (Absent)
[2022-05-28 19:49] LABS: Urine Creatinine Concentration 15.73 mg/dL
[2022-05-28] MEDS: Insulin GLARGINE 100 un/ml 10 ml VIAL SUBCUT SCH (20:47)
[2022-05-28] MEDS ORDERED: Insulin GLARGINE 100 un/ml 10 ml VIAL SUBCUT SCH (21:00)
[2022-05-28 22:25] LABS: Calcium 9.7 mg/dL (8.6-10.3); Creatinine, Serum 0.96 mg/dL (0.51-0.95); Potassium 4.2 mmol/L (3.5-5.0)
[2022-05-29] MEDS: Nystatin TOP POWDER 15 GM BTL TOPICAL SCH ×4 (01:26→21:02)
[2022-05-29 06:39] LABS: ABS Basophils 0.1 10^3/ul (0-0.2); ABS Eosinophils 0.1 10^3/ul (0-0.6); ABS Monocytes 0.8 10^3/ul (0-0.8); ABS Neutrophils 8.2 10^3/ul (1.5-7.7); Eosinophil % 0.9 %; Hematocrit 34 % (35-47); Hemoglobin 11.1 g/dL (12.0-16.0); Lymphocyte % 9.5 %; Mean Corpuscular HGB Conc 32 g/dL (31-36); Mean Corpuscular Hemoglobin 28 pg (27-31); Mean Corpuscular Volume 88 fL (80-97); Mean Platelet Volume 7.8 fL (7.4-10.4); Platelet Count 237 10^3/uL (150-450); Red Blood Count 3.91 10^6 /uL (3.70-4.87); Red Cell Distribution Width 15 % (10-15); White Blood Count 10.1 10^3/uL (3.5-10.8)
[2022-05-29 06:54] LABS: Albumin 3.2 g/dL (3.2-5.2); Calcium 9.7 mg/dL (8.6-10.3); Creatinine, Serum 0.84 mg/dL (0.51-0.95); Globulin 3.1 g/dL (2-4); Potassium 4.3 mmol/L (3.5-5.0); Total Bilirubin 0.5 mg/dL (0.2-1.0); Total Protein 6.3 g/dL (6.4-8.9); eGFR CKD-EPI 68.1 (>60)
[2022-05-29 07:08] LABS: TSH Ultra Thyroid Stim Horm 0.53 mcIU/mL (0.34-5.60)
[2022-05-29] MEDS: Tiotropium Brom/Olodaterol MDI INH SCH (07:39)
[2022-05-29] MEDS: Cholecalciferol (VIT D3) 1,000 unit TAB PO SCH (09:22)
[2022-05-29] MEDS: Insulin GLARGINE 100 un/ml 10 ml VIAL SUBCUT SCH ×2 (09:23→20:49)
[2022-05-29] MEDS: Fluticasone NASAL SPRAY 50MCG 16 gm SPRAY BTL INTRANASAL SCH (09:23)
[2022-05-29] MEDS: Vitamin THERAPEUTIC TAB PO SCH (09:24)
[2022-05-30] MEDS: Tiotropium Brom/Olodaterol MDI INH SCH (07:20)
[2022-05-30] MEDS: Cholecalciferol (VIT D3) 1,000 unit TAB PO SCH (08:57)
[2022-05-30] MEDS: Vitamin THERAPEUTIC TAB PO SCH (08:59)
[2022-05-30] MEDS: Insulin GLARGINE 100 un/ml 10 ml VIAL SUBCUT SCH ×2 (09:01→21:46)
[2022-05-30] MEDS: Nystatin TOP POWDER 15 GM BTL TOPICAL SCH ×3 (09:02→21:46)
[2022-05-30] MEDS: Fluticasone NASAL SPRAY 50MCG 16 gm SPRAY BTL INTRANASAL SCH (09:02)
[2022-05-30] MEDS ORDERED: Furosemide 20 mg/2 ml IV VIAL IV SLOW PU ONE (11:18)
[2022-05-30] MEDS ORDERED: Dextrose 50% Syringe 50 ml 25 GM/50 ML SYRINGE IV PUSH PRN (21:41)
[2022-05-31] MEDS: Insulin GLARGINE 100 un/ml 10 ml VIAL SUBCUT SCH ×2 (08:19→20:57)
[2022-05-31] MEDS: Vitamin THERAPEUTIC TAB PO SCH (08:19)
[2022-05-31] MEDS: Cholecalciferol (VIT D3) 1,000 unit TAB PO SCH (08:20)
[2022-05-31] MEDS: Nystatin TOP POWDER 15 GM BTL TOPICAL SCH ×3 (08:27→20:59)
[2022-05-31] MEDS: Fluticasone NASAL SPRAY 50MCG 16 gm SPRAY BTL INTRANASAL SCH (09:38)
[2022-05-31] MEDS: Tiotropium Brom/Olodaterol MDI INH SCH (13:12)
[2022-06-01 07:19] VITALS: BP 148/82
[2022-06-01] MEDS: Tiotropium Brom/Olodaterol MDI INH SCH (08:27)
[2022-06-01] MEDS: Cholecalciferol (VIT D3) 1,000 unit TAB PO SCH (08:52)
[2022-06-01] MEDS: Vitamin THERAPEUTIC TAB PO SCH (08:52)
[2022-06-01] MEDS: Insulin GLARGINE 100 un/ml 10 ml VIAL SUBCUT SCH (08:54)
[2022-06-01] MEDS: Fluticasone NASAL SPRAY 50MCG 16 gm SPRAY BTL INTRANASAL SCH (08:54)
[2022-06-01] MEDS: Nystatin TOP POWDER 15 GM BTL TOPICAL SCH (08:55)
== END 2022-06-01 10:30 | DRG 291 ==
LOC: ED 11:26 → EDHOLD 11:26 → MED 21:11 → SUATTDRO 05-29 11:35
PROVIDERS: ADMIT Student in an Organized Health Care Education/Training Program; ATTEND Internal Medicine

== ENCOUNTER 2022-11-22 19:07 | Inpatient (IN) ==
[2022-11-22 19:47] LABS: Hematocrit 32.5 % (35-45); Hemoglobin 10.5 g/dL (11.5-14.3); Mean Corpuscular Hemoglobin 27.2 pg (27-33); Mean Corpuscular Hgb Conc 32.2 g/dL (31-36); Mean Corpuscular Volume 84.4 fL (80-97); Mean Platelet Volume 6.9 fL (7.5-11.2); Platelet Count 381 10^3/uL (150-450); Red Blood Count 3.85 10^6/uL (3.63-4.92); Red Cell Distribution Width 17.3 % (12-17); White Blood Count 7.8 10^3/uL (3.8-11.8)
[2022-11-22] MEDS ORDERED: Furosemide 20 mg/2 ml IV VIAL IV SLOW PU ONE (20:01)
[2022-11-22 20:03] LABS: Albumin 3.1 g/dL (3.2-5.2); Calcium 9.9 mg/dL (8.6-10.3); Creatinine, Serum 0.94 mg/dL (0.51-0.95); Potassium 4.8 mmol/L (3.5-5.0); Total Protein 7.3 g/dL (6.4-8.9); eGFR CKD-EPI 59.1 (>60)
[2022-11-22 20:04] LABS: Albumin/Globulin Ratio 0.7 (1-3); Globulin 4.2 g/dL (2-4); Total Bilirubin 0.3 mg/dL (0.2-1.0)
[2022-11-22 20:51] LABS: ABS Basophils 0.1 10^3/uL (0.0-0.1); ABS Eosinophils 0.1 10^3/uL (0.0-0.5); ABS Lymphocytes 1.1 10^3/uL (1.0-4.8); ABS Monocytes 0.3 10^3/uL (0.0-0.9); ABS Neutrophils 6.2 10^3/uL (1.5-7.6); Eosinophil % 0.6 %; Lymphocyte % 14.6 %
[2022-11-22 21:10] LABS: High Sensitivity Troponin 1 Hr 9 pg/mL (<15)
[2022-11-22] MEDS ORDERED: Albuterol HFA INHALER 8 gm MDI INH PRN (23:08)
[2022-11-22] MEDS ORDERED: Albuterol/Ipratropium NEB.SOL (2.5/0.5 MG) 3 ML NEB.SOLN INH PRN (23:08)
[2022-11-22] MEDS ORDERED: Dextrose 50% Syringe 50 ml 25 GM/50 ML SYRINGE IV PUSH PRN (23:32)
[2022-11-22] MEDS: Insulin GLARGINE 100 un/ml 10 ml VIAL SUBCUT SCH (23:54)
[2022-11-23 05:31] LABS: Hemoglobin 10.1 g/dL (11.5-14.3); Mean Corpuscular Hemoglobin 27.6 pg (27-33); Mean Corpuscular Hgb Conc 32.7 g/dL (31-36); Mean Corpuscular Volume 84.3 fL (80-97); Mean Platelet Volume 6.5 fL (7.5-11.2); Platelet Count 379 10^3/uL (150-450); Red Blood Count 3.68 10^6/uL (3.63-4.92); Red Cell Distribution Width 17.2 % (12-17); White Blood Count 5.7 10^3/uL (3.8-11.8)
[2022-11-23 05:47] LABS: Calcium 9.7 mg/dL (8.6-10.3); Creatinine, Serum 0.92 mg/dL (0.51-0.95); Magnesium 1.7 mg/dL (1.9-2.7); eGFR CKD-EPI 60.6 (>60)
[2022-11-23] MEDS ORDERED: Magnesium Sulfate IV 3 GM in NS 0.9% 100 ml BAG 100 ML IVPB ONE (06:46)
[2022-11-23] MEDS ORDERED: Magnesium Sulfate 2 gm BAG 2 GM/50 ML BAG IV ONE (07:00)
[2022-11-23] MEDS ORDERED: Magnesium Sulfate IV 1GM/100ML 1 GM/100 ML BAG IV ONE (08:00)
[2022-11-23] MEDS: Erythromycin OPTH OINT APPLIC OINT LEFT EYE SCH ×3 (09:39→21:31)
[2022-11-23] MEDS ORDERED: Furosemide 40 mg/4 ml IV VIAL IV SLOW PU ONE (09:48)
[2022-11-23] MEDS ORDERED: Dextrose 50% Syringe 50 ml 25 GM/50 ML SYRINGE IV PUSH PRN (10:08)
[2022-11-23] MEDS: Tiotropium Brom/Olodaterol MDI (ACUTE) INH SCH (10:28)
[2022-11-23] MEDS ORDERED: Sulfur Hexaflouride MICROSPHR 25 MG VIAL ONE (10:56)
[2022-11-23 16:05] LABS: TSH Ultra Thyroid Stim Horm 0.35 mcIU/mL (0.34-5.60)
[2022-11-23] MEDS: Ferric Gluconate IV 250 MG in NS 0.9% 250 ml 200 ML IVPB SCH (21:29)
[2022-11-23] MEDS: Insulin GLARGINE 100 un/ml 10 ml VIAL SUBCUT SCH (21:29)
[2022-11-24 06:19] LABS: ABS Eosinophils 0.1 10^3/uL (0.0-0.5); ABS Lymphocytes 1.3 10^3/uL (1.0-4.8); ABS Monocytes 0.6 10^3/uL (0.0-0.9); ABS Neutrophils 5.9 10^3/uL (1.5-7.6); ABS Nucleated RBC 0.02 10^3/ul; Eosinophil % 1.4 %; Hematocrit 29.5 % (35-45); Hemoglobin 9.6 g/dL (11.5-14.3); Lymphocyte % 16.7 %; Mean Corpuscular Hemoglobin 27.5 pg (27-33); Mean Corpuscular Hgb Conc 32.5 g/dL (31-36); Mean Corpuscular Volume 84.8 fL (80-97); Mean Platelet Volume 6.7 fL (7.5-11.2); Nucleated Red Blood Cells % 0.2 /100 WBC (0.0-0.4); Platelet Count 408 10^3/uL (150-450); Red Blood Count 3.48 10^6/uL (3.63-4.92); Red Cell Distribution Width 17.3 % (12-17)
[2022-11-24 06:38] LABS: C Reactive Protein 28.77 mg/L (<8.01); Calcium 9.6 mg/dL (8.6-10.3); Creatinine, Serum 1.01 mg/dL (0.51-0.95); Magnesium 2.2 mg/dL (1.9-2.7); Potassium 4.4 mmol/L (3.5-5.0); eGFR CKD-EPI 54.2 (>60)
[2022-11-24] MEDS: Tiotropium Brom/Olodaterol MDI (ACUTE) INH SCH (07:13)
[2022-11-24] MEDS: Erythromycin OPTH OINT APPLIC OINT LEFT EYE SCH ×2 (08:21→13:55)
[2022-11-24] MEDS: Zinc Oxide 16% PASTE (Butt Paste) 30 gm TUBE TOPICAL SCH (15:26)
[2022-11-24] MEDS: Ferric Gluconate IV 250 MG in NS 0.9% 250 ml 200 ML IVPB SCH (17:36)
[2022-11-24] MEDS: Insulin GLARGINE 100 un/ml 10 ml VIAL SUBCUT SCH (21:28)
[2022-11-25] MEDS: Zinc Oxide 16% PASTE (Butt Paste) 30 gm TUBE TOPICAL SCH ×4 (00:02→22:24)
[2022-11-25] MEDS: Erythromycin OPTH OINT APPLIC OINT LEFT EYE SCH ×4 (00:02→22:23)
[2022-11-25] MEDS: Tiotropium Brom/Olodaterol MDI (ACUTE) INH SCH (07:23)
[2022-11-25 07:46] LABS: Hematocrit 30.7 % (35-45); Hemoglobin 9.8 g/dL (11.5-14.3); Mean Corpuscular Hemoglobin 27.6 pg (27-33); Mean Corpuscular Volume 86.3 fL (80-97); Mean Platelet Volume 6.6 fL (7.5-11.2); Platelet Count 390 10^3/uL (150-450); Red Blood Count 3.56 10^6/uL (3.63-4.92); Red Cell Distribution Width 17.6 % (12-17); White Blood Count 7.7 10^3/uL (3.8-11.8)
[2022-11-25 08:04] LABS: Calcium 9.6 mg/dL (8.6-10.3); Creatinine, Serum 1.14 mg/dL (0.51-0.95); Potassium 4.4 mmol/L (3.5-5.0); eGFR CKD-EPI 46.9 (>60)
[2022-11-25 08:47] LABS: ABS Basophils 0.1 10^3/uL (0.0-0.1); ABS Eosinophils 0.2 10^3/uL (0.0-0.5); ABS Lymphocytes 1.6 10^3/uL (1.0-4.8); ABS Monocytes 0.5 10^3/uL (0.0-0.9); ABS Neutrophils 5.3 10^3/uL (1.5-7.6); ABS Nucleated RBC 0.01 10^3/ul; Eosinophil % 2.4 %; Lymphocyte % 20.6 %; Nucleated Red Blood Cells % 0.1 /100 WBC (0.0-0.4)
[2022-11-25] MEDS: Ferric Gluconate IV 250 MG in NS 0.9% 250 ml 200 ML IVPB SCH (17:28)
[2022-11-25] MEDS: Insulin GLARGINE 100 un/ml 10 ml VIAL SUBCUT SCH (22:18)
[2022-11-26 06:45] LABS: Calcium 9.3 mg/dL (8.6-10.3); Creatinine, Serum 0.89 mg/dL (0.51-0.95); Magnesium 1.9 mg/dL (1.9-2.7); Potassium 3.9 mmol/L (3.5-5.0); eGFR CKD-EPI 63.1 (>60)
[2022-11-26] MEDS: Tiotropium Brom/Olodaterol MDI (ACUTE) INH SCH (07:12)
[2022-11-26] MEDS: Zinc Oxide 16% PASTE (Butt Paste) 30 gm TUBE TOPICAL SCH ×3 (08:31→22:18)
[2022-11-26] MEDS: Erythromycin OPTH OINT APPLIC OINT LEFT EYE SCH ×4 (08:32→22:20)
[2022-11-26] MEDS: Ferric Gluconate IV 250 MG in NS 0.9% 250 ml 200 ML IVPB SCH (22:08)
[2022-11-26] MEDS: Insulin GLARGINE 100 un/ml 10 ml VIAL SUBCUT SCH (22:12)
[2022-11-27 06:30] LABS: Calcium 9.2 mg/dL (8.6-10.3); Creatinine, Serum 0.88 mg/dL (0.51-0.95); Potassium 4.1 mmol/L (3.5-5.0)
[2022-11-27] MEDS: Tiotropium Brom/Olodaterol MDI (ACUTE) INH SCH (07:34)
[2022-11-27 07:37] LABS: PO2 Arterial 99 mmHg (80-100)
[2022-11-27 07:39] LABS: PCO2 Arterial 74 mmHg (35-45)
[2022-11-27] MEDS: Erythromycin OPTH OINT APPLIC OINT LEFT EYE SCH ×3 (09:27→21:00)
[2022-11-27] MEDS: Zinc Oxide 16% PASTE (Butt Paste) 30 gm TUBE TOPICAL SCH ×3 (09:27→20:50)
[2022-11-27 14:30] LABS: PCO2 Arterial 69 mmHg (35-45)
[2022-11-27 14:36] LABS: PO2 Arterial 54 mmHg (80-100)
[2022-11-27] MEDS: Insulin GLARGINE 100 un/ml 10 ml VIAL SUBCUT SCH (20:48)
[2022-11-28 05:59] LABS: Hematocrit 30.9 % (35-45); Hemoglobin 10.1 g/dL (11.5-14.3); Mean Corpuscular Hemoglobin 27.8 pg (27-33); Mean Corpuscular Hgb Conc 32.7 g/dL (31-36); Mean Platelet Volume 6.5 fL (7.5-11.2); Platelet Count 367 10^3/uL (150-450); Red Blood Count 3.64 10^6/uL (3.63-4.92); Red Cell Distribution Width 17.8 % (12-17); White Blood Count 9.2 10^3/uL (3.8-11.8)
[2022-11-28 06:13] LABS: Albumin 2.8 g/dL (3.2-5.2); Albumin/Globulin Ratio 0.8 (1-3); Calcium 9.5 mg/dL (8.6-10.3); Creatinine, Serum 0.76 mg/dL (0.51-0.95); Globulin 3.7 g/dL (2-4); Magnesium 1.6 mg/dL (1.9-2.7); Potassium 4.3 mmol/L (3.5-5.0); Total Bilirubin 0.2 mg/dL (0.2-1.0); Total Protein 6.5 g/dL (6.4-8.9); eGFR CKD-EPI 76.3 (>60)
[2022-11-28 06:53] LABS: ABS Basophils 0.1 10^3/uL (0.0-0.1); ABS Eosinophils 0.3 10^3/uL (0.0-0.5); ABS Lymphocytes 1.6 10^3/uL (1.0-4.8); ABS Monocytes 0.7 10^3/uL (0.0-0.9); ABS Neutrophils 6.6 10^3/uL (1.5-7.6); ABS Nucleated RBC 0.01 10^3/ul; Eosinophil % 3.4 %; Lymphocyte % 16.9 %; Nucleated Red Blood Cells % 0.1 /100 WBC (0.0-0.4)
[2022-11-28] MEDS: Tiotropium Brom/Olodaterol MDI (ACUTE) INH SCH (07:11)
[2022-11-28] MEDS ORDERED: Magnesium Sulfate 2 gm BAG 2 GM/50 ML BAG IVPB ONE (07:50)
[2022-11-28] MEDS: Zinc Oxide 16% PASTE (Butt Paste) 30 gm TUBE TOPICAL SCH ×3 (08:41→22:05)
[2022-11-28] MEDS ORDERED: Magnesium Sulfate IV 3 GM in NS 0.9% 100 ml BAG 100 ML IVPB ONE (08:52)
[2022-11-28] MEDS ORDERED: Magnesium Sulf 4 GM/100 ML IV 4,000 MG/100 ML BAG IVPB ONE (08:52)
[2022-11-28] MEDS: Erythromycin OPTH OINT APPLIC OINT LEFT EYE SCH ×2 (10:28→14:15)
[2022-11-28] MEDS: Insulin GLARGINE 100 un/ml 10 ml VIAL SUBCUT SCH (20:57)
[2022-11-29 06:53] LABS: Calcium 9.6 mg/dL (8.6-10.3); Creatinine, Serum 0.73 mg/dL (0.51-0.95); Magnesium 1.7 mg/dL (1.9-2.7); Potassium 4.5 mmol/L (3.5-5.0)
[2022-11-29] MEDS ORDERED: Magnesium Sulfate 2 gm BAG 2 GM/50 ML BAG IVPB ONE (06:57)
[2022-11-29] MEDS: Tiotropium Brom/Olodaterol MDI (ACUTE) INH SCH (07:12)
[2022-11-29] MEDS: Zinc Oxide 16% PASTE (Butt Paste) 30 gm TUBE TOPICAL SCH ×3 (09:38→22:08)
[2022-11-29 17:43] LABS: Glucose Confirmatory 495 mg/dL (70-100)
[2022-11-29] MEDS ORDERED: Insulin GLARGINE 100 un/ml 10 ml VIAL SUBCUT SCH (21:00)
[2022-11-30 07:06] LABS: ABS Basophils 0.1 10^3/uL (0.0-0.1); ABS Lymphocytes 1.6 10^3/uL (1.0-4.8); ABS Monocytes 0.6 10^3/uL (0.0-0.9); ABS Neutrophils 8.1 10^3/uL (1.5-7.6); ABS Nucleated RBC 0.02 10^3/ul; Eosinophil % 0.3 %; Hemoglobin 10.5 g/dL (11.5-14.3); Lymphocyte % 15.4 %; Mean Corpuscular Hemoglobin 28.1 pg (27-33); Mean Corpuscular Hgb Conc 32.8 g/dL (31-36); Mean Corpuscular Volume 85.8 fL (80-97); Nucleated Red Blood Cells % 0.2 /100 WBC (0.0-0.4); Platelet Count 346 10^3/uL (150-450); Red Blood Count 3.73 10^6/uL (3.63-4.92); Red Cell Distribution Width 18.2 % (12-17); White Blood Count 10.5 10^3/uL (3.8-11.8)
[2022-11-30 07:22] LABS: Blood Urea Nitrogen 20 mg/dL (6-24); CO2 Carbon Dioxide 35 mmol/L (22-32); Calcium 9.7 mg/dL (8.6-10.3); Chloride 100 mmol/L (101-111); Creatinine, Serum 0.65 mg/dL (0.51-0.95); Glucose 210 mg/dL (70-100); Magnesium 1.7 mg/dL (1.9-2.7); Sodium 137 mmol/L (135-145); eGFR CKD-EPI 85.7 (>60)
[2022-11-30] MEDS: Tiotropium Brom/Olodaterol MDI (ACUTE) INH SCH (07:27)
[2022-11-30] MEDS ORDERED: Magnesium Sulfate IV 3 GM in NS 0.9% 100 ml BAG 100 ML IVPB ONE (07:43)
[2022-11-30 07:59] LABS: Anion Gap 2 mmol/L (2-16)
[2022-11-30] MEDS: Zinc Oxide 16% PASTE (Butt Paste) 30 gm TUBE TOPICAL SCH ×3 (09:44→21:19)
[2022-11-30] MEDS: Insulin GLARGINE 100 un/ml 10 ml VIAL SUBCUT SCH (21:18)
[2022-12-01 05:28] LABS: ABS Lymphocytes 1.4 10^3/uL (1.0-4.8); ABS Monocytes 0.6 10^3/uL (0.0-0.9); ABS Neutrophils 7.8 10^3/uL (1.5-7.6); Eosinophil % 0.1 %; Hematocrit 32.4 % (35-45); Hemoglobin 10.8 g/dL (11.5-14.3); Lymphocyte % 14.1 %; Mean Corpuscular Hemoglobin 28.2 pg (27-33); Mean Corpuscular Hgb Conc 33.3 g/dL (31-36); Mean Corpuscular Volume 84.7 fL (80-97); Mean Platelet Volume 6.9 fL (7.5-11.2); Platelet Count 366 10^3/uL (150-450); Red Blood Count 3.83 10^6/uL (3.63-4.92); Red Cell Distribution Width 18.7 % (12-17); White Blood Count 9.9 10^3/uL (3.8-11.8)
[2022-12-01 05:41] LABS: Calcium 9.6 mg/dL (8.6-10.3); Creatinine, Serum 0.69 mg/dL (0.51-0.95); Magnesium 1.7 mg/dL (1.9-2.7); Potassium 3.9 mmol/L (3.5-5.0); eGFR CKD-EPI 84.5 (>60)
[2022-12-01] MEDS: Tiotropium Brom/Olodaterol MDI (ACUTE) INH SCH (07:54)
[2022-12-01] MEDS ORDERED: Magnesium Sulfate 2 gm BAG 2 GM/50 ML BAG IVPB ONE (08:02)
[2022-12-01] MEDS ORDERED: Potassium Chlor 20 meq TAB.ER PO ONE (09:05)
[2022-12-01] MEDS: Zinc Oxide 16% PASTE (Butt Paste) 30 gm TUBE TOPICAL SCH ×2 (09:28→13:50)
[2022-12-01] MEDS: Insulin GLARGINE 100 un/ml 10 ml VIAL SUBCUT SCH (09:31)
[2022-12-01 11:31] VITALS: BP 135/48
== END 2022-12-01 17:47 | disposition home or self-care (01) | DRG 291 ==
LOC: EDHOLD 19:07 → ED 19:07 → SUATTDRO 21:35 → MEDTELE 11-23 14:30 → SUATTDRO 11-24 13:44
PROVIDERS: ADMIT Hospitalist; ATTEND Internal Medicine

== ENCOUNTER 2023-02-26 15:09 | Observation (INO) ==
[2023-02-26 16:18] LABS: Venous Bicarbonate HCO3 27.3 mmol/L (24-28)
[2023-02-26 16:19] LABS: ABS Basophils 0.1 10^3/uL (0.0-0.1); ABS Eosinophils 0.6 10^3/uL (0.0-0.5); ABS Lymphocytes 0.9 10^3/uL (1.0-4.8); ABS Monocytes 0.4 10^3/uL (0.0-0.9); Eosinophil % 6.9 %; Hematocrit 39.5 % (35-45); Hemoglobin 12.7 g/dL (11.5-14.3); Lymphocyte % 9.7 %; Mean Corpuscular Hemoglobin 29.6 pg (27-33); Mean Corpuscular Volume 92.4 fL (80-97); Mean Platelet Volume 7.3 fL (7.5-11.2); Platelet Count 252 10^3/uL (150-450); Red Blood Count 4.28 10^6/uL (3.63-4.92); Red Cell Distribution Width 16.8 % (12-17); White Blood Count 8.9 10^3/uL (3.8-11.8)
[2023-02-26 17:06] LABS: Albumin 3.3 g/dL (3.2-5.2); Calcium 9.3 mg/dL (8.6-10.3); Magnesium 1.6 mg/dL (1.9-2.7); Potassium 4.4 mmol/L (3.5-5.0); Total Bilirubin 0.3 mg/dL (0.2-1.0)
[2023-02-26 17:12] LABS: Albumin/Globulin Ratio 0.8 (1-3); Creatinine, Serum 0.86 mg/dL (0.51-0.95); Globulin 3.9 g/dL (2-4); Total Protein 7.2 g/dL (6.4-8.9); eGFR CKD-EPI 65.8 (>60)
[2023-02-26] MEDS ORDERED: Magnesium Sulf 4 GM/100 ML IV 4,000 MG/100 ML BAG IVPB ONE (20:50)
[2023-02-26] MEDS ORDERED: Albuterol/Ipratropium NEB.SOL (2.5/0.5 MG) 3 ML NEB.SOLN INH PRN (20:53)
[2023-02-26] MEDS ORDERED: Albuterol HFA INHALER 8 gm MDI INH PRN (20:53)
[2023-02-26] MEDS ORDERED: Furosemide 40 mg/4 ml IV VIAL IV ONE (20:56)
[2023-02-26] MEDS ORDERED: Dextrose 50% Syringe 50 ml 25 GM/50 ML SYRINGE IV PUSH PRN (21:15)
[2023-02-26] MEDS: Sulfamethox/Trimethoprim DS TAB 800/160 mg PO SCH (21:42)
[2023-02-26] MEDS: Insulin GLARGINE 100 un/ml 10 ml VIAL SUBCUT SCH (21:50)
[2023-02-26 22:58] LABS: C Reactive Protein 18.45 mg/L (<8.01)
[2023-02-26] MEDS: Nystatin TOP POWDER 15 GM BTL TOPICAL SCH (23:11)
[2023-02-27 05:48] LABS: ABS Eosinophils 0.5 10^3/uL (0.0-0.5); ABS Lymphocytes 0.9 10^3/uL (1.0-4.8); ABS Monocytes 0.6 10^3/uL (0.0-0.9); ABS Neutrophils 6.7 10^3/uL (1.5-7.6); Eosinophil % 5.5 %; Hematocrit 36.6 % (35-45); Hemoglobin 12.1 g/dL (11.5-14.3); Lymphocyte % 10.4 %; Mean Corpuscular Hemoglobin 30.2 pg (27-33); Mean Corpuscular Volume 91.3 fL (80-97); Mean Platelet Volume 7.4 fL (7.5-11.2); Platelet Count 235 10^3/uL (150-450); Red Blood Count 4.01 10^6/uL (3.63-4.92); Red Cell Distribution Width 16.6 % (12-17); White Blood Count 8.8 10^3/uL (3.8-11.8)
[2023-02-27 06:06] LABS: Calcium 9.2 mg/dL (8.6-10.3); Creatinine, Serum 0.88 mg/dL (0.51-0.95); Magnesium 2.3 mg/dL (1.9-2.7); Potassium 3.8 mmol/L (3.5-5.0)
[2023-02-27] MEDS: Tiotropium Brom/Olodaterol MDI (ACUTE) INH SCH (08:38)
[2023-02-27] MEDS ORDERED: Influenza vaccine *QUAD* *2023-24* 0.5 ML SYRINGE IM ONE (09:00)
[2023-02-27] MEDS: Sulfamethox/Trimethoprim DS TAB 800/160 mg PO SCH ×2 (09:23→21:26)
[2023-02-27] MEDS: Insulin GLARGINE 100 un/ml 10 ml VIAL SUBCUT SCH ×2 (09:39→21:25)
[2023-02-27] MEDS: Nystatin TOP POWDER 15 GM BTL TOPICAL SCH ×3 (09:39→21:26)
[2023-02-28] MEDS: Tiotropium Brom/Olodaterol MDI (ACUTE) INH SCH (07:09)
[2023-02-28] MEDS: Sulfamethox/Trimethoprim DS TAB 800/160 mg PO SCH (08:48)
[2023-02-28] MEDS: Insulin GLARGINE 100 un/ml 10 ml VIAL SUBCUT SCH (08:49)
[2023-02-28] MEDS: Nystatin TOP POWDER 15 GM BTL TOPICAL SCH ×2 (08:50→14:40)
[2023-02-28 14:27] VITALS: BP 116/87
== END 2023-02-28 16:44 | disposition home or self-care (01) ==
LOC: ED 15:09 → EDHOLD 15:09 → SUATTDRO 20:50 → EDHOLD 23:14 → MEDTELE 23:22
PROVIDERS: ADMIT Internal Medicine; ATTEND Family Medicine